=== PATIENT | male | born 1975 ===

== ENCOUNTER 2017-01-24 17:44 | Emergency (ER) | payer OTHER ==
[2017-01-24 17:44] VITALS: BMI 626.7
[2017-01-24 17:50] VITALS: BP 151/91; PULSE 81; RESP 16; TEMP 98.5; O2SAT 100
--- NOTE | 2017-01-24 18:09 | ED PDOC ---
Lower Extremity Pain/Injury Time Seen by Provider: 01/24/17 18:07 Chief Complaint (Nursing): Wound Check Chief Complaint (Provider): HAND INJURY History Per: Patient (41 Y/O MALE HERE WITH WART NOTED ON RIGHT THUMB WITH ACCIDENTAL INJURY TODAY WHILE MOPPING. PATIENT STATES WART PRESSED AGAINT MOP AND NOW NOTES MILD ABRASION ALONG BASE OF WART. REQUESTS REMOVAL.) Past Medical History Reviewed: Historical Data, Nursing Documentation, Vital Signs Vital Signs: Last Vital Signs Temp 98.5 F 01/24/17 17:48 Pulse 81 01/24/17 17:48 Resp 16 01/24/17 17:48 BP 151/91 H 01/24/17 17:48 Pulse Ox 100 01/24/17 17:48 - Medical History PMH: Diabetes, HTN, Hypercholesterolemia, Hyperlipidemia Denies: Atrial Fibrillation, CAD, Chronic Kidney Disease - Surgical History Surgical History: Cholecystectomy - Family History Family History: States: Unknown Family Hx - Immunization History Hx Tetanus Toxoid Vaccination: Yes (2013) Hx Influenza Vaccination: Yes (2013) Hx Pneumococcal Vaccination: Yes (2013) - Home Medications Home Medications: Ambulatory Orders Medication Instructions Recorded Insulin Detemir [Levemir] 64 unit SC HS 10/14/14 Ammonium Lactate 12% [Lac-Hydrin 1 appl TOP BID 05/16/16 12% Lotion (225 g)] Amoxicillin/Clavulanate [Augmentin 1 tab PO BID 05/16/16 875 MG-125 MG Tab] Amoxicillin/Clavulanate [Augmentin 1 tab PO BID #14 tab 05/16/16 875 MG-125 MG] Clotrimazole 1% Cream [Lotrimin 1%] 1 appl TOP BID 05/16/16 Gabapentin [Neurontin] 300 mg PO BID 05/16/16 Ibuprofen [Motrin Tab] 1 tab PO Q6 PRN #15 tab 05/16/16 Insulin Lispro [humALOG] 35 unit SC AC 05/16/16 Losartan [Cozaar] 100 mg PO HS 05/16/16 [id number]-3-[id number] Ethyl Esters 1 GM 2 gm PO BID 05/16/16 [Lovaza] Simvastatin [Zocor] 40 mg PO HS 05/16/16 Cephalexin [cephalexin] 500 mg PO Q6 #12 cap 07/14/16 Bacitracin OINT 0.5 gm TOP BID #1 tube 01/24/17 Naproxen [Naprosyn Tab] 1 tab PO Q8 PRN #21 tab 01/24/17 - Allergies Allergies/Adverse Reactions: Allergies Allergy/AdvReac Type Severity Reaction Status Date / Time vancomycin Allergy SWELLING Verified 01/24/17 17:48 Review of Systems ROS Statement: Except As Marked, All Systems Reviewed And Found Negative Skin: Positive for: Other (WART) Physical Exam - Reviewed Nursing Documentation Reviewed: Yes Vital Signs Reviewed: Yes - Physical Exam Appears: Positive for: Well, Non-toxic, No Acute Distress Head Exam: Positive for: ATRAUMATIC, NORMAL INSPECTION, NORMOCEPHALIC Skin: Positive for: Warm. Negative for: Normal Color (1.25 CM WART NOTED RIGHT VOLAR SURFACE OF THUMB. SUPERFICIAL LACERATION NOTED BY BASE OF WART OF RIGHT THUMB.) Eye Exam: Positive for: EOMI, Normal appearance, PERRL ENT: Positive for: Normal ENT Inspection Neck: Positive for: Normal, Painless ROM Cardiovascular/Chest: Positive for: Regular Rate, Rhythm Respiratory: Positive for: CNT, Normal Breath Sounds Gastrointestinal/Abdominal: Positive for: Normal Exam, Bowel Sounds, Soft Back: Positive for: Normal Inspection Extremity: Positive for: Normal ROM Neurologic/Psych: Positive for: Alert, Oriented - ECG O2 Sat by Pulse Oximetry: 100 Disposition - Clinical Impression Clinical Impression: Wart - Patient ED Disposition Is Patient to be Admitted: No - Disposition Referrals: Duy Jacob MD [Staff Provider] - Disposition: Routine/Home Disposition Time: 18:10 Condition: FAIR Additional Instructions: F/U WITH PMD OR DERMATOLOGY IN 2 DAYS FOR WOUND EVALUATION Prescriptions: Bacitracin OINT 0.5 gm TOP BID #1 tube Naproxen [Naprosyn Tab] 1 tab PO Q8 PRN #21 tab PRN Reason: Pain, Moderate (4-7) Instructions: Common Wart (ED), Abrasion (ED) Forms: HUM ED School/Work Excuse
[2017-01-24] MEDS ORDERED: TDAP Vaccine 0.5 mL Syr IM ONE (18:12)
[2017-01-24] MEDS ORDERED: Naproxen 500 MG TAB PO STA (18:12)
[2017-01-24] MEDS ORDERED: Naproxen 500 MG TAB PO ONE (18:27)
== END 2017-01-24 18:46 | disposition home or self-care (01) ==
LOC: H.ER 17:44
DX: B07.8 Other viral warts (principal); E11.9 Type 2 diabetes mellitus without complications; E78.00 Pure hypercholesterolemia, unspecified; I10 Essential (primary) hypertension; Z79.4 Long term (current) use of insulin

== ENCOUNTER 2017-03-16 23:22 | Inpatient (IN) | payer OTHER ==
[2017-03-16 23:22] VITALS: BMI 39.4
--- NOTE | 2017-03-17 | ED PDOC ---
Lower Extremity Pain/Injury Time Seen by Provider: 03/16/17 23:35 Chief Complaint (Nursing): Lower Extremity Problem/Injury Chief Complaint (Provider): foot pain History Per: Patient History/Exam Limitations: no limitations Onset/Duration Of Symptoms: Days Additional History Per: Patient Additional Complaint(s): 41 y/o male history of diabetes presents with bilateral foot pain x 2 days. Patient had debridement of ulceration and resection of bone with complex repair of skin structures on the right foot, as well as incision and drainage, ulcer debridement with resection of bone on the left foot 03/08/[address] Hernandez. Patient followed up with Dr. Hernandez at wound care clinic this morning due to persistent pain and was advised to come to ED for admission for cellulitis after serosanguanous discharge was drainage from right surgical site. Patient notes pain worse on surgical site of right foot. Associated chills. Denies nausea/vomiting, chest pain, shortness of breath, palpitations, leg swelling. Past Medical History Reviewed: Historical Data, Nursing Documentation, Vital Signs Vital Signs: Last Vital Signs Temp 99.8 F H 03/16/17 23:28 Pulse 104 H 03/16/17 23:28 Resp 18 03/16/17 23:28 BP 124/71 03/16/17 23:28 Pulse Ox 98 03/16/17 23:28 - Medical History PMH: Diabetes, Gall Bladder Disease, HTN, Hypercholesterolemia, Hyperlipidemia Denies: Atrial Fibrillation, CAD, Chronic Kidney Disease - Surgical History Surgical History: Cholecystectomy - Family History Family History: States: Unknown Family Hx - Immunization History Hx Tetanus Toxoid Vaccination: Yes (2013) Hx Influenza Vaccination: Yes (2013) Hx Pneumococcal Vaccination: Yes (2013) - Home Medications Home Medications: Ambulatory Orders Medication Instructions Recorded Insulin Detemir [Levemir] 64 unit SC HS 10/14/14 Ammonium Lactate 12% [Lac-Hydrin 1 appl TOP BID 05/16/16 12% Lotion (225 g)] Clotrimazole 1% Cream [Lotrimin 1%] 1 appl TOP BID 05/16/16 Gabapentin [Neurontin] 300 mg PO BID 05/16/16 Insulin Lispro [humALOG] 35 unit SC TID 05/16/16 Losartan [Cozaar] 100 mg PO HS 05/16/16 [id number]-[id number] Ethyl Esters 1 GM 2 gm PO BID 05/16/16 [Lovaza] Simvastatin [Zocor] 40 mg PO HS 05/16/16 - Allergies Allergies/Adverse Reactions: Allergies Allergy/AdvReac Type Severity Reaction Status Date / Time vancomycin Allergy SWELLING Verified 03/16/17 23:28 Review of Systems ROS Statement: Except As Marked, All Systems Reviewed And Found Negative Musculoskeletal: Positive for: Foot Pain Physical Exam - Reviewed Nursing Documentation Reviewed: Yes Vital Signs Reviewed: Yes - Physical Exam Appears: Positive for: Well, Non-toxic, Uncomfortable Head Exam: Positive for: ATRAUMATIC, NORMAL INSPECTION, NORMOCEPHALIC Skin: Positive for: Normal Color Eye Exam: Positive for: Normal appearance ENT: Positive for: Normal ENT Inspection Cardiovascular/Chest: Positive for: Regular Rate, Rhythm Respiratory: Positive for: Normal Breath Sounds Gastrointestinal/Abdominal: Positive for: Normal Exam Back: Positive for: Normal Inspection Extremity: Positive for: Other (2nd and 3rd digit amputation left foot; suture site plantar left foot extending dorsally. No drainage, tenderness. Right foot 2nd digit amputation; sutures noted plantar aspect extending dorsally; moderate localized erythema streaking up right leg. Tender to touch. No active drainage. ). Negative for: Calf Tenderness Neurologic/Psych: Positive for: Alert, Oriented - Laboratory Results Result Diagrams: 03/17/17 00:30 03/17/17 00:30 - ECG ECG: Positive for: Viewed By Me (reviewed by ED attending) ECG Rhythm: Positive for: Sinus Rhythm O2 Sat by Pulse Oximetry: 98 Pulse Ox Interpretation: Normal - Radiology X-Ray: Viewed By Me X-Ray Interpretation: No Acute Disease - Other Rad xray bilateral feet X-Ray: Viewed By La X-Ray Interpretation: no acute findings - Progress ED Course And Treament: labs, xrays, ekg, IV dilaudid Patient evaluated by podiatry resident on-call. Case discussed with Dr. Chaney, medical service on-call, for admission Disposition - Clinical Impression Clinical Impression: Foot infection, Cellulitis - Patient ED Disposition Is Patient to be Admitted: Yes - Disposition Disposition Time: 01:35 Condition: FAIR - Pt Status Changed To: Hospital Disposition Of: Inpatient - Admit Certification Admit to Inpatient:: After my assessment, the patient will require hospitalization for at least two midnights. This is because of the severity of symptoms shown, intensity of services needed, and/or the medical risk in this patient being treated as an outpatient. - POA Present On Arrival: Poor Glycemic Control, Surgical Site Infection
[2017-03-17] MEDS ORDERED: Piperacillin/Tazobact 3.375 GM in Sodium Chloride 0.9% 100 ML IV ONE (00:47)
[2017-03-17 00:48] LABS: BASO # 0.1 K/uL (0.0-0.2); BASO % 0.7 % (0.0-2.0); EOS # 0.1 K/uL (0.0-0.7); EOS % 0.7 % (0.0-4.0); HEMOGLOBIN 9.8 g/dL (12.0-18.0); LYMPH # 1.8 K/uL (1.0-4.3); LYMPH % 12.8 % (20.0-40.0); MEAN CELL VOLUME 79.9 fl (80.0-94.0); MEAN CORPUSCULAR HEMOGLOBIN 26.6 pg (27.0-31.0); MEAN CORPUSCULAR HGB CONC 33.3 g/dL (33.0-37.0); MEAN PLATELET VOLUME 6.9 fl (7.2-11.7); MONO % 7.2 % (0.0-10.0); NEUT # 11.1 K/uL (1.8-7.0); NEUT % 78.6 % (50.0-75.0); RBC 3.68 Mil/uL (4.40-5.90); RED CELL DISTRIBUTION WIDTH 14.2 % (11.5-14.5); WHITE BLOOD COUNT 14.1 K/uL (4.8-10.8)
[2017-03-17 01:02] LABS: ALB/GLOB RATIO 0.8 (1.0-2.1); ALBUMIN 3.9 g/dL (3.5-5.0); ALT/SGPT 34 U/L (21-72); AST/SGOT 26 U/L (17-59); BLOOD UREA NITROGEN 23 mg/dl (9-20); CALCIUM 9.1 mg/dL (8.4-10.2); GFR AFRICAN-AMERICAN > 60; GFR NON-AFRICAN AMERICAN > 60
[2017-03-17] MEDS ORDERED: Sodium Chloride 0.9% 1,000 ML IV STA (01:33)
[2017-03-17] MEDS ORDERED: HYDROmorphone 0.5 mg/0.5 ml ISec ONE (01:40)
--- NOTE | 2017-03-17 02:26 | CP.PCM.CON ---
History of Present Illness - History of Present Illness History of Present Illness: 41 year old male with PMHx DM, HTN, HLD seen at bedside in the ED complaining of pain at surgery sites, right foot nonhealing ulceration and left foot infected ulcerations. Patient states the had the surgery for wound debridement last week . Since the surgery, patient states he has developed great pain to his surgical sites. Patient states he went to the wound care clinic and had 5cc of sanguinous drainage relieved from his right surgical site. Patient still feels hot and great pressure from his right surgical site. Patient was sent to the ED after wound care clinic. Patient denies N/V/F/D/C/SOB. No other pedal complaints at this time. PMH: DM, HTN, HLD, hypercholesterolemia PSH: cholecystectomy Meds: see med list All: vancomycin FH: unknown SH: vapes Review of Systems - Review of Systems All systems: reviewed and no additional remarkable complaints except (as per HPI ) Past Patient History - Infectious Disease Hx of Infectious Diseases: None - Tetanus Immunizations Tetanus Immunization: Unknown - Past Medical History & Family History Past Medical History?: Yes - Past Social History Smoking Status: Former Smoker - CARDIAC Hx Atrial Fibrillation: No Hx Hypercholesterolemia: Yes Hx Hypertension: Yes - HEENT Hx HEENT Problems: No - RENAL Hx Chronic Kidney Disease: No - INTEGUMENTARY Hx Dermatological Problems: Yes (ULCERS BOTH FEET) Hx Cellulitis: Yes (BOTH FEET) - GASTROINTESTINAL Hx Gall Bladder Disease: Yes - SURGICAL HISTORY Hx Amputation: Yes (3 toes left foot) Hx Cholecystectomy: Yes Hx Musculoskeletal Surgery: Yes - ANESTHESIA Hx Anesthesia: Yes Hx Anesthesia Reactions: No Hx Malignant Hyperthermia: No Meds Allergies/Adverse Reactions: Allergies Allergy/AdvReac Type Severity Reaction Status Date / Time vancomycin Allergy SWELLING Verified 03/16/17 23:28 - Medications Medications: Current Medications Sodium Chloride (Sodium Chloride 0.9%) 1,000 mls @ 1,000 mls/hr IV .Q1H STA Stop: 03/17/17 02:32 Physical Exam - Constitutional Appears: Well, Non-toxic, No Acute Distress - Extremities Exam Additional comments: Vasc: DP & PT pulses 2/4, Moderate ankle edema, CFT < 3 sec to all digits, increase in warmth noted to dorsum of right foot Neuro: patient insensate however able to feel pain this visit Derm: Surgical incisions to previous 2nd digit amps b/p appears well coapted with no signs of wound dehiscence noted. Erythema noted to the dorsum of forefoot, L>R. Ortho: Multiple digital amputations noted. Pain on palpation noted to dorsum of forefoot in area of erythema, L>R. - Neurological Exam Neurological exam: Alert, Oriented x3 - Psychiatric Exam Psychiatric exam: Normal Affect, Normal Mood Results - Vital Signs Recent Vital Signs: Last Vital Signs Temp 99.3 F 03/17/17 01:56 Pulse 90 03/17/17 01:56 Resp 14 03/17/17 01:56 BP 138/71 03/17/17 01:56 Pulse Ox 98 03/17/17 01:56 - Labs Result Diagrams: 03/17/17 00:30 03/17/17 00:30 Assessment & Plan - Assessment and Plan (Free Text) Assessment: Patient seen and evaluated at bedside Discussed with attending, Dr. Lan Charts, labs, vitals reviewed = afebrile, WBC leukocytosis @ 14.1 Patient to be admitted today for foot wounds b/l F/U foot XR Recommend IV Zosyn Podiatry will continue to follow while in house - Date & Time Date: 03/17/17 Time: 01:00
[2017-03-17] MEDS ORDERED: Piperacillin/Tazobact 3.375 gm Inj IVPB ONE (02:30)
[2017-03-17] MEDS: Sodium Chloride 0.45% 1,000 ML IV SCH ×2 (06:51→16:33)
--- NOTE | 2017-03-17 08:25 | RAD ---
HISTORY: admit COMPARISON: No prior. FINDINGS: LUNGS: No active pulmonary disease. PLEURA: No significant pleural effusion identified, no pneumothorax apparent. CARDIOVASCULAR: Normal. OSSEOUS STRUCTURES: No significant abnormalities. VISUALIZED UPPER ABDOMEN: Normal. OTHER FINDINGS: None. IMPRESSION: No active disease.
--- NOTE | 2017-03-17 08:30 | RAD ---
HISTORY: foot pain COMPARISON: No prior FINDINGS: BONES: Re-demonstration of osteotomies of left 2nd and 3rd digits. Re-demonstration of postsurgical changes with resection of the 2nd digit and partial resection of the 1st metatarsal. JOINTS: Re-demonstration of degenerative changes involving metatarsal-phalangeal joint of the 1st digit as well as deformity of the 1st proximal phalanx.Additional deformity of the 3rd toe and 4th metatarsal-phalangeal junction. SOFT TISSUE: Air noted in the soft tissues of the distal 2nd digit cannot exclude underlying abscess. OTHER FINDINGS: None . IMPRESSION: As above.
[2017-03-17] MEDS ORDERED: Insulin Lispro (humaLOG) 100 Units/ml Inj SC SCH (09:00)
[2017-03-17] MEDS: Piperacillin/Tazobact 3.375 GM in Sodium Chloride 0.9% 100 ML IVPB SCH ×2 (09:29→16:33)
[2017-03-17] MEDS: Omega-3-Acid Ethyl Esters 1 GM Cap PO SCH ×2 (09:30→17:34)
[2017-03-17] MEDS: Insulin Lispro (humaLOG) 100 Units/ml Inj SC SCH ×3 (09:30→17:34)
--- NOTE | 2017-03-17 10:22 | CP.PCM.CON ---
History of Present Illness - History of Present Illness History of Present Illness: Infectius Disease Consult Note- HPI- Patient is a 41 year ld male with h/o DM II, HTN, who was admitted with pain and edema and redness around his b/l ft surgical sites. pt. was sent to ed after being seen at the wound center. Pt. explains had surgery a week ago for b/l feet wound debridement for nonhealing foot wound ulcers and since the surgery pt. has developed edema and redness and bloody discharge from the right foot wound site and pain. Pt. currently denies any fever or chills but states has alot of pain around of the second right toe surgical site and the left foot surgical site. PMH: DM, HTN, HLD, hypercholesterolemia PSH: cholecystectomy Meds: see med list All: vancomycin FH: unknown Review of Systems - Review of Systems Review of Systems: ROS- denies any fever or chills, denies any cough, denies any sob, denies any chest pain, denies any abd. pain, denies any n.v, denies any dysurea, denies any diarrhea pain and swelling and redness in b/l feet /toe surgical sites with bloody discharge denies any injury to the area Past Patient History - Infectious Disease Hx of Infectious Diseases: None - Tetanus Immunizations Tetanus Immunization: Unknown - Past Medical History & Family History Past Medical History?: Yes - Past Social History [facility] - CARDIAC Hx Cardiac Disorders: Yes Hx Hypertension: Yes - PULMONARY Hx Respiratory Disorders: No - NEUROLOGICAL Hx Neurological Disorder: No - HEENT Hx HEENT Problems: No - RENAL Hx Chronic Kidney Disease: No - ENDOCRINE/METABOLIC Hx Endocrine Disorders: Yes Hx Diabetes Mellitus Type 2: Yes - HEMATOLOGICAL/ONCOLOGICAL Hx Blood Disorders: No - INTEGUMENTARY Hx Dermatological Problems: Yes (ULCERS BOTH FEET) Hx Cellulitis: Yes (BOTH FEET) - MUSCULOSKELETAL/RHEUMATOLOGICAL Hx Falls: No - GASTROINTESTINAL Hx Gall Bladder Disease: Yes - GENITOURINARY/GYNECOLOGICAL Hx Genitourinary Disorders: No - PSYCHIATRIC Hx Substance Use: No - SURGICAL HISTORY Hx Cholecystectomy: Yes Other/Comment: bilateral foot surgeries (amputation of toes) - ANESTHESIA Hx Anesthesia: Yes Hx Anesthesia Reactions: No Hx Malignant Hyperthermia: No Meds Allergies/Adverse Reactions: Allergies Allergy/AdvReac Type Severity Reaction Status Date / Time vancomycin Allergy SWELLING Verified 03/16/17 23:28 - Medications Medications: Current Medications Acetaminophen (Tylenol 325mg Tab) 650 mg PO Q6 PRN PRN Reason: Pain, moderate (4-7) Atorvastatin Calcium (Lipitor) 20 mg PO HS [facility] Clotrimazole (Lotrimin 1% Cream) 1 applic TOP BID [facility] Last Admin: 03/17/17 09:31 Dose: 1 appful Enoxaparin Sodium (Lovenox) 30 mg SC DAILY [facility] PRN Reason: Protocol Gabapentin (Neurontin) 300 mg PO BID [facility] Last Admin: 03/17/17 09:31 Dose: 300 mg Hydromorphone HCl (Dilaudid) 1 mg IVP Q4 PRN PRN Reason: Pain, severe (8-10) Last Admin: 03/17/17 09:35 Dose: 1 mg Sodium Chloride (Sodium Chloride 0.45%) 1,000 mls @ 100 mls/hr IV .Q10H [facility] Stop: 03/18/17 06:26 Last Admin: 03/17/17 06:51 Dose: 100 mls/hr Piperacillin Sod/Tazobactam (Sod 3.375 gm/ Sodium Chloride) 100 mls @ 100 mls/ hr IVPB Q8 [facility] Last Admin: 03/17/17 09:29 Dose: 100 mls/hr Insulin Detemir (Levemir) 64 units SC HS [facility] Insulin Human Lispro (Humalog) 0 units SC TID [facility] PRN Reason: Protocol Last Admin: 03/17/17 09:30 Dose: 4 unit Lactic Acid (Lac-Hydrin 12% Lotion (225 G)) 1 applic TOP BID [facility] Last Admin: 03/17/17 09:30 Dose: 1 appl Losartan Potassium (Cozaar) 100 mg PO [facility] [id number] Ethyl Esters (Lovaza) 2 gm PO BID [facility] Last Admin: 03/17/17 09:30 Dose: 2 gm Physical Exam - Constitutional Appears: Non-toxic, No Acute Distress - Head Exam Head Exam: ATRAUMATIC - Eye Exam Eye Exam: EOMI - ENT Exam ENT Exam: Normal Oropharynx - Neck Exam Neck exam: Positive for: Full Rom - Respiratory Exam Respiratory Exam: Clear to Auscultation Bilateral, NORMAL BREATHING PATTERN - Cardiovascular Exam Cardiovascular Exam: RRR, +S1, +S2 - GI/Abdominal Exam GI & Abdominal Exam: Normal Bowel Sounds, Soft Additional comments: NT, ND - Extremities Exam Additional comments: right foot with second toe amputation /debridement site with sutures in place , yellow discharge noted at the site with extensive edema and erythema extending to the ankle region left foot with second and third toe amp/debridement site with sutures in place, no active discharge, no malodor, but there is edema and erythema but less than the right toe region - Neurological Exam Neurological exam: Alert, Oriented x3 Results - Vital Signs Recent Vital Signs: Last Vital Signs Temp 98.3 F 03/17/17 08:54 Pulse 61 03/17/17 08:54 Resp 18 03/17/17 08:54 BP 128/64 03/17/17 08:54 Pulse Ox 98 03/17/17 08:54 - Labs Result Diagrams: 03/17/17 00:30 03/17/17 00:30 Labs: Laboratory Results - last 24 hr 03/17/17 06:48 POC Glucose (mg/dL) 246 H Laboratory Results - last 72 hr 03/17/17 03/17/17 03/17/17 00:30 00:30 00:30 WBC 14.1 H D RBC 3.68 L Hgb 9.8 L Hct 29.4 L MCV 79.9 L D MCH 26.6 L MCHC 33.3 RDW 14.2 Plt Count 333 MPV 6.9 L Neut % (Auto) 78.6 H Lymph % (Auto) 12.8 L [place] % (Auto) 7.2 Eos % (Auto) 0.7 Baso % (Auto) 0.7 Neut # 11.1 H Lymph # 1.8 [place] # 1.0 H Eos # 0.1 Baso # 0.1 PT INR Sodium 134 Potassium 4.2 Chloride 100 Carbon Dioxide 24 Anion Gap 15 BUN 23 H Creatinine 1.2 Est GFR ( Amer) > 60 Est GFR (Non-Af Amer) > 60 POC Glucose (mg/dL) Random Glucose 190 H Lactic Acid 1.0 Calcium 9.1 Total Bilirubin 1.3 AST 26 ALT 34 Alkaline Phosphatase 102 Total Protein 8.7 H Albumin 3.9 Globulin 4.7 H Albumin/Globulin Ratio 0.8 L 03/17/17 03/17/17 03/17/17 00:42 06:48 10:55 WBC RBC Hgb Hct MCV MCH MCHC RDW Plt Count MPV Neut % (Auto) Lymph % (Auto) [place] % (Auto) Eos % (Auto) Baso % (Auto) Neut # Lymph # [place] # Eos # Baso # PT INR Sodium Potassium Chloride Carbon Dioxide Anion Gap BUN Creatinine Est GFR ( Amer) Est GFR (Non-Af Amer) POC Glucose (mg/dL) 202 H 246 H 356 H Random Glucose Lactic Acid Calcium Total Bilirubin AST ALT Alkaline Phosphatase Total Protein Albumin Globulin Albumin/Globulin Ratio 03/17/17 03/17/17 12:15 17:23 WBC RBC Hgb Hct MCV MCH MCHC RDW Plt Count MPV Neut % (Auto) Lymph % (Auto) [place] % (Auto) Eos % (Auto) Baso % (Auto) Neut # Lymph # [place] # Eos # Baso # PT 15.2 H INR 1.3 H Sodium Potassium Chloride Carbon Dioxide Anion Gap BUN Creatinine Est GFR ( Amer) Est GFR (Non-Af Amer) POC Glucose (mg/dL) 321 H Random Glucose Lactic Acid Calcium Total Bilirubin AST ALT Alkaline Phosphatase Total Protein Albumin Globulin Albumin/Globulin Ratio Microbiology 05/16/16 19:23 Foot - Left Gram Stain - Final 05/16/16 19:23 Foot - Left Wound Culture - Final Proteus Penneri Staphylococcus Aureus Corynebacterium Species 03/08/17 Unknown Foot - Left Gram Stain - Final 03/08/17 Unknown Foot - Left Wound Culture - Final Proteus Mirabilis Enterobacter Aerogenes 11/10/16 15:54 Foot - Left Gram Stain - Final 11/10/16 15:54 Foot - Left Wound Culture - Final Proteus Mirabilis Escherichia Coli Enterococcus Faecalis 09/22/16 16:19 Foot - Left Gram Stain - Final 09/22/16 16:19 Foot - Left Wound Culture - Final Staphylococcus Aureus Accession No. : [id number] Patient Name / ID : LILA LEVIN / [id number] Exam Date : 03/17/2017 01:05:19 ( Approved ) Study Comment : Sex / Age : M / 41Y Creator : Jarod Glass MD Dictator : Jarod Glass MD Truck Driver Supervisor : Curtain Cleaner : Jarod Glass MD Approver2 : Report Date : 03/17/2017 08:29:05 My Comment : HISTORY: foot pain COMPARISON: No prior FINDINGS: BONES: Re-demonstration of osteotomies of left 2nd and 3rd digits. Re-demonstration of postsurgical changes with resection of the 2nd digit and partial resection of the 1st metatarsal. JOINTS: Re-demonstration of degenerative changes involving metatarsal-phalangeal joint of the 1st digit as well as deformity of the 1st proximal phalanx.Additional deformity of the 3rd toe and 4th metatarsal-phalangeal junction. SOFT TISSUE: Air noted in the soft tissues of the distal 2nd digit cannot exclude underlying abscess. OTHER FINDINGS: None . IMPRESSION: As above. Assessment & Plan (1) Cellulitis Status: Acute (2) Abscess and cellulitis Status: Acute (3) Foot infection Status: Acute - Assessment and Plan (Free Text) Assessment: A/P- 41 year old amle with DM II, HTN admitted with b/l foot ccellulitis around the b/l toe surgical sites. right foot much more edematous and erythematous compared to the right and underlying abscess must be ruled out. plan- check blood cx x 2. check wound cx. advise to check ESR. advise that pt. would most likely need opening of the right surgical site sutures to help relieve the pressure and help the underlying abscess get drained. in the interim advise to cover for both MRSA and broad spectrum for gram negatives. pt. has had multiorganism foot infections based on previous microbiology foot wound cx results in medical chart. pt. states he is allergic to vancomycin and hence advise to start pt. on daptomycin 4mg/kg q24 hours for mras coverage along with zosyn for broad spectrum gram neg and anaerobic coverage and the proteus and e.coli and enterbocater from previous foot wound cx are all sensitive to zosyn based on micro report. bone bx path report from earlier this month post surgery was negative for OM. length of Iv antibiotics pending clinical response may need Ct or MRI for better evaluation and r/o abscess. All above d/w patient at length and pt. verbalizes full understanding of all above. Thank you fro allowing me to take part in the care of this patient.
[2017-03-17] MEDS ORDERED: DAPTOmycin 500 mg Inj (Cubicin) IV SCH (10:30)
--- NOTE | 2017-03-17 11:23 | CP.PCM.PN ---
Subjective - Date & Time of Evaluation Date of Evaluation: 03/17/17 Time of Evaluation: 10:30 - Subjective Subjective: 41 year old male patient with PMHx DM, HTN, HLD seen at bedside for painful surgical sites b/l, 1 week s/p R debridement of nonhealing ulceration and L debridement of infected ulceration. Patient seen resting in bed comfortably, AAOx3 and NAD. Patient denies any acute events overnight other than moderate drainage from surgical sites b/l, L>R. Patient reports the pain to his surgical sites are well-controlled with pain medications. Patient denies N/V/F/D/C/SOB/ CP. No other pedal complaints at this time. Objective - Vital Signs/Intake and Output Vital Signs (last 24 hours): Temp Pulse Resp BP Pulse Ox 98.3 F 61 18 128/64 98 03/17/17 08:54 03/17/17 08:54 03/17/17 08:54 03/17/17 08:54 03/17/17 08:54 - Medications Medications: Current Medications Acetaminophen (Tylenol 325mg Tab) 650 mg PO Q6 PRN PRN Reason: Pain, moderate (4-7) Atorvastatin Calcium (Lipitor) 20 mg PO HS [facility] Clotrimazole (Lotrimin 1% Cream) 1 applic TOP BID [facility] Last Admin: 03/17/17 09:31 Dose: 1 appful Enoxaparin Sodium (Lovenox) 40 mg SC DAILY [facility] PRN Reason: Protocol Gabapentin (Neurontin) 300 mg PO BID [facility] Last Admin: 03/17/17 09:31 Dose: 300 mg Hydromorphone HCl (Dilaudid) 1 mg IVP Q4 PRN PRN Reason: Pain, severe (8-10) Last Admin: 03/17/17 09:35 Dose: 1 mg Sodium Chloride (Sodium Chloride 0.45%) 1,000 mls @ 100 mls/hr IV .Q10H [facility] Stop: 03/18/17 06:26 Last Admin: 03/17/17 06:51 Dose: 100 mls/hr Piperacillin Sod/Tazobactam (Sod 3.375 gm/ Sodium Chloride) 100 mls @ 100 mls/ hr IVPB Q8 [facility] Last Admin: 03/17/17 09:29 Dose: 100 mls/hr Daptomycin 570 mg/ Sodium (Chloride) 100 mls @ 100 mls/hr IV Q24H [facility] Stop: 03/22/17 11:16 Insulin Detemir (Levemir) 64 units SC HS [facility] Insulin Human Lispro (Humalog) 0 units SC TID [facility] PRN Reason: Protocol Last Admin: 03/17/17 09:30 Dose: 4 unit Lactic Acid (Lac-Hydrin 12% Lotion (225 G)) 1 applic TOP BID [facility] Last Admin: 03/17/17 09:30 Dose: 1 appl Losartan Potassium (Cozaar) 100 mg PO HS [facility] [id number] Ethyl Esters (Lovaza) 2 gm PO BID [facility] Last Admin: 03/17/17 09:30 Dose: 2 gm - Constitutional Appears: Well, Non-toxic, No Acute Distress - Extremities Exam Additional comments: Vasc: DP & PT pulses 3/4, Moderate ankle edema, CFT < 3 sec to all digits, increase in warmth noted to dorsum of right foot Neuro: patient insensate however able to feel pain this visit Derm: Surgical incisions to previous 2nd digit amps b/l appears well coapted with no signs of wound dehiscence noted. Erythema noted to the dorsum of forefoot, L>R. Approximately 2cc sanguinous drainage expressed from R incision. Approximately 1cc serosanguinous drainage expressed from L incision plantarly. Ortho: Multiple digital amputations noted. Pain on palpation noted to dorsum of forefoot in area of erythema, L>R. - Neurological Exam Neurological Exam: Alert, Awake, Oriented x3 - Psychiatric Exam Psychiatric exam: Normal Affect, Normal Mood Assessment and Plan - Assessment and Plan (Free Text) Assessment: 41 year old male PMHx DM, HTN, HLD, hypercholesterolemia with b/l foot cellulitis 1 week s/p debridement ulceration sub 2nd met b/l. Plan: Patient seen and evaluated at bedside. Discussed with attending, Dr. Wright. Charts, labs, vitals reviewed = afebrile, leukocytosis @ 14.1 F/U abx recs per ID Using a sterile pickup, R incision was and dorsum of R foot was milked to express any remaining hematoma. Approximately 2cc sanguinous drainage was expressed. Using a sterile pickup, L incision was and dorsum and plantar L foot milked to express any drainage. Approximately 1cc serosanguinous drainage expressed. b/l foot XR: - Air noted in the soft tissues of this distal 2nd digit cannot exclude underlying abscess Continue with pain mgmt per medicine = Tylenol, Dilaudid Podiatry will continue to follow patient while in house
[2017-03-17] MEDS: Enoxaparin 40 mg Syringe SC SCH (12:58)
[2017-03-17 13:08] LABS: INR 1.3 (0.9-1.2); PROTHROMBIN TIME 15.2 Seconds (9.8-13.1)
--- NOTE | 2017-03-17 20:15 | CARD ---
APPROVED REPORT EKG Measurement Heart [id number] <Conclusion> Normal sinus rhythm Normal ECG
[2017-03-17] MEDS ORDERED: INSULIN DETEMIR 64 UNIT SC SCH (22:00)
--- NOTE | 2017-03-17 23:04 | CP.PCM.HP ---
Past Patient History - Infectious Disease Hx of Infectious Diseases: None - Tetanus Immunizations Tetanus Immunization: Unknown - Past Medical History & Family History Past Medical History?: Yes - Past Social History Smoking Status: ecigarette - CARDIAC Hx Cardiac Disorders: Yes Hx Hypertension: Yes - PULMONARY Hx Respiratory Disorders: No - NEUROLOGICAL Hx Neurological Disorder: No - HEENT Hx HEENT Problems: No - RENAL Hx Chronic Kidney Disease: No - ENDOCRINE/METABOLIC Hx Endocrine Disorders: Yes Hx Diabetes Mellitus Type 2: Yes - HEMATOLOGICAL/ONCOLOGICAL Hx Blood Disorders: No - INTEGUMENTARY Hx Dermatological Problems: Yes (ULCERS BOTH FEET) Hx Cellulitis: Yes (BOTH FEET) - MUSCULOSKELETAL/RHEUMATOLOGICAL Hx Falls: No - GASTROINTESTINAL Hx Gall Bladder Disease: Yes - GENITOURINARY/GYNECOLOGICAL Hx Genitourinary Disorders: No - PSYCHIATRIC Hx Substance Use: No - SURGICAL HISTORY Hx Cholecystectomy: Yes Other/Comment: bilateral foot surgeries (amputation of toes) - ANESTHESIA Hx Anesthesia: Yes Hx Anesthesia Reactions: No Hx Malignant Hyperthermia: No Meds Allergies/Adverse Reactions: Allergies Allergy/AdvReac Type Severity Reaction Status Date / Time vancomycin Allergy SWELLING Verified 03/16/17 23:28 Results - Vital Signs Recent Vital Signs: Last Vital Signs Temp 98.3 F 03/17/17 16:53 Pulse 67 03/17/17 21:41 Resp 20 03/17/17 16:53 BP 169/75 H 03/17/17 21:41 Pulse Ox 98 03/17/17 16:53 - Labs Result Diagrams: 03/17/17 00:30 03/17/17 00:30 Labs: Laboratory Results - last 24 hr 03/17/17 03/17/17 03/17/17 06:48 10:55 12:15 ESR PT 15.2 H INR 1.3 H POC Glucose (mg/dL) 246 H 356 H 03/17/17 03/17/17 17:23 20:20 ESR > 120 H PT INR POC Glucose (mg/dL) 321 H
[2017-03-17] MEDS: Insulin Detemir 100 Units/ml Inj SC SCH (23:46)
[2017-03-18] MEDS: Piperacillin/Tazobact 3.375 GM in Sodium Chloride 0.9% 100 ML IVPB SCH ×3 (01:13→16:31)
[2017-03-18] MEDS: Sodium Chloride 0.45% 1,000 ML IV SCH (02:15)
[2017-03-18 08:08] LABS: BASO # 0.1 K/uL (0.0-0.2); BASO % 0.7 % (0.0-2.0); EOS # 0.4 K/uL (0.0-0.7); HEMOGLOBIN 9.5 g/dL (12.0-18.0); LYMPH # 1.4 K/uL (1.0-4.3); LYMPH % 19.4 % (20.0-40.0); MEAN CELL VOLUME 79.9 fl (80.0-94.0); MEAN CORPUSCULAR HEMOGLOBIN 27.1 pg (27.0-31.0); MEAN PLATELET VOLUME 6.9 fl (7.2-11.7); MONO # 0.6 K/uL (0.0-0.8); MONO % 8.9 % (0.0-10.0); NEUT # 4.6 K/uL (1.8-7.0); NRBC % 0.1 % (0.0-0.0); RBC 3.51 Mil/uL (4.40-5.90); RED CELL DISTRIBUTION WIDTH 14.1 % (11.5-14.5)
[2017-03-18] MEDS: Insulin Lispro (humaLOG) 100 Units/ml Inj SC SCH ×3 (09:10→17:40)
[2017-03-18] MEDS: Enoxaparin 40 mg Syringe SC SCH (09:11)
[2017-03-18] MEDS: Omega-3-Acid Ethyl Esters 1 GM Cap PO SCH ×2 (09:12→16:27)
--- NOTE | 2017-03-18 10:37 | CP.PCM.PN ---
Subjective - Date & Time of Evaluation Date of Evaluation: 03/18/17 Time of Evaluation: 10:37 - Subjective Subjective: 41 year old male patient with PMHx DM, HTN, HLD seen at bedside for painful surgical sites b/l, 1 week s/p R debridement of nonhealing ulceration and L debridement of infected ulceration. Patient seen resting in bed comfortably, AAOx3 and NAD. Patient admits continued moderate drainage from surgical sites b/ l, L>R. Strikethrough is present on dressings. Patient states he woke up in the middle of the night because he left like his R foot was on fire, with the burning sensation traveling up his leg. Patient reports the pain to his surgical sites are well-controlled with pain medications. Patient denies N/V/F/D /C/SOB/CP. No other pedal complaints at this time. Objective - Vital Signs/Intake and Output Vital Signs (last 24 hours): Temp Pulse Resp BP Pulse Ox 97.9 F 60 20 129/79 97 03/18/17 08:10 03/18/17 08:10 03/18/17 08:10 03/18/17 08:10 03/18/17 08:10 - Medications Medications: Current Medications Acetaminophen (Tylenol 325mg Tab) 650 mg PO Q6 PRN PRN Reason: Pain, moderate (4-7) Atorvastatin Calcium (Lipitor) 20 mg PO HS [facility] Last Admin: 03/17/17 21:40 Dose: 20 mg Clotrimazole (Lotrimin 1% Cream) 1 applic TOP BID [facility] Last Admin: 03/18/17 09:13 Dose: 1 applic Enoxaparin Sodium (Lovenox) 40 mg SC DAILY [facility] PRN Reason: Protocol Last Admin: 03/18/17 09:11 Dose: 40 mg Gabapentin (Neurontin) 300 mg PO BID [facility] Last Admin: 03/18/17 09:12 Dose: 300 mg Hydromorphone HCl (Dilaudid) 1 mg IVP Q4 PRN PRN Reason: Pain, severe (8-10) Last Admin: 03/18/17 06:52 Dose: 1 mg Piperacillin Sod/Tazobactam (Sod 3.375 gm/ Sodium Chloride) 100 mls @ 100 mls/ hr IVPB Q8 [facility] Last Admin: 03/18/17 09:14 Dose: 100 mls/hr Daptomycin 570 mg/ Sodium (Chloride) 100 mls @ 100 mls/hr IV Q24H [facility] Stop: 03/22/17 11:16 Last Admin: 03/17/17 12:57 Dose: 100 mls/hr Insulin Detemir (Levemir) 64 units SC [facility] Last Admin: 03/17/17 23:46 Dose: 64 units Insulin Human Lispro (Humalog) 0 units SC TID [facility] PRN Reason: Protocol Last Admin: 03/18/17 09:10 Dose: 4 unit Lactic Acid (Lac-Hydrin 12% Lotion (225 G)) 1 applic TOP BID [facility] Last Admin: 03/18/17 09:12 Dose: 1 appl Losartan Potassium (Cozaar) 100 mg PO [facility] Last Admin: 03/17/17 21:41 Dose: 100 mg Uqemr-[id number] Ethyl Esters (Lovaza) 2 gm PO BID [facility] Last Admin: 03/18/17 09:12 Dose: 2 gm - Labs Labs: 03/18/17 05:30 PT 15.2 Seconds (9.8-13.1) H 03/17/17 12:15 INR 1.3 (0.9-1.2) H 03/17/17 12:15 - Constitutional Appears: Well, Non-toxic, No Acute Distress - Extremities Exam Additional comments: Vasc: DP & PT pulses 3/4, Moderate ankle edema, CFT < 3 sec to all digits, increase in warmth noted to dorsum of right foot Neuro: patient insensate however able to feel pain this visit Derm: Surgical incisions to previous 2nd digit amps b/l appears well coapted. Erythema noted to the dorsum of forefoot. Approximately 1cc sanguinous drainage expressed from R incision. <1cc serosanguinous drainage expressed from L incision plantarly. Ortho: Multiple digital amputations noted. Pain on palpation noted to dorsum of forefoot in area of erythema, L>R. - Neurological Exam Neurological Exam: Alert, Awake, Oriented x3 - Psychiatric Exam Psychiatric exam: Normal Affect, Normal Mood Assessment and Plan - Assessment and Plan (Free Text) Assessment: 41 year old male PMHx DM, HTN, HLD, hypercholesterolemia with b/l foot cellulitis 1 week s/p debridement ulceration sub 2nd met b/l. Plan: Patient seen and evaluated at bedside. Discussed with attending, Dr. Wright. Charts, labs, vitals reviewed = afebrile, WBC WNL @ 7.0 F/U abx recs per ID Both feet packed with 1/4 in Iodosorb and dressed with DSD. Continue with pain mgmt per medicine = Tylenol, Dilaudid Podiatry will continue to follow patient while in house
[2017-03-18] MEDS ORDERED: Iodoform 1/4inx15ft BOT EXT ONE (16:03)
[2017-03-18] MEDS: Insulin Detemir 100 Units/ml Inj SC SCH (22:12)
[2017-03-19] MEDS: Piperacillin/Tazobact 3.375 GM in Sodium Chloride 0.9% 100 ML IVPB SCH ×3 (00:18→16:34)
--- NOTE | 2017-03-19 00:55 | CP.PCM.PN ---
Subjective - Date & Time of Evaluation Date of Evaluation: 03/18/17 Time of Evaluation: 13:15 Objective - Vital Signs/Intake and Output Vital Signs (last 24 hours): Temp Pulse Resp BP Pulse Ox 97.3 F L 72 20 159/79 H 97 03/18/17 16:51 03/18/17 22:10 03/18/17 16:51 03/18/17 22:10 03/18/17 16:51 - Medications Medications: Current Medications Acetaminophen (Tylenol 325mg Tab) 650 mg PO Q6 PRN PRN Reason: Pain, moderate (4-7) Atorvastatin Calcium (Lipitor) 20 mg PO [facility] Last Admin: 03/18/17 22:10 Dose: 20 mg Clotrimazole (Lotrimin 1% Cream) 1 applic TOP BID [facility] Last Admin: 03/18/17 09:13 Dose: 1 applic Enoxaparin Sodium (Lovenox) 40 mg SC DAILY [facility] PRN Reason: Protocol Last Admin: 03/18/17 09:11 Dose: 40 mg Gabapentin (Neurontin) 300 mg PO BID [facility] Last Admin: 03/18/17 16:27 Dose: 300 mg Hydromorphone HCl (Dilaudid) 1 mg IVP Q4 PRN PRN Reason: Pain, severe (8-10) Last Admin: 03/18/17 16:23 Dose: 1 mg Piperacillin Sod/Tazobactam (Sod 3.375 gm/ Sodium Chloride) 100 mls @ 100 mls/ hr IVPB Q8 [facility] Last Admin: 03/19/17 00:18 Dose: 100 mls/hr Daptomycin 570 mg/ Sodium (Chloride) 100 mls @ 100 mls/hr IV Q24H [facility] Stop: 03/22/17 11:16 Last Admin: 03/18/17 11:48 Dose: 100 mls/hr Insulin Detemir (Levemir) 64 units SC [facility] Last Admin: 03/18/17 22:12 Dose: 64 units Insulin Human Lispro (Humalog) 0 units SC TID [facility] PRN Reason: Protocol Last Admin: 03/18/17 17:40 Dose: 4 unit Lactic Acid (Lac-Hydrin 12% Lotion (225 G)) 1 applic TOP BID [facility] Last Admin: 03/18/17 16:27 Dose: 1 appl Losartan Potassium (Cozaar) 100 mg PO [facility] Last Admin: 03/18/17 22:10 Dose: 100 mg [id number] Ethyl Esters (Lovaza) 2 gm PO BID [facility] Last Admin: 03/18/17 16:27 Dose: 2 gm - Labs Labs: 03/18/17 05:30 PT 15.2 Seconds (9.8-13.1) H 03/17/17 12:15 INR 1.3 (0.9-1.2) H 03/17/17 12:15
[2017-03-19] MEDS: Insulin Lispro (humaLOG) 100 Units/ml Inj SC SCH ×3 (08:57→17:38)
[2017-03-19] MEDS: Enoxaparin 40 mg Syringe SC SCH (09:00)
[2017-03-19] MEDS: Omega-3-Acid Ethyl Esters 1 GM Cap PO SCH ×2 (09:00→16:35)
--- NOTE | 2017-03-19 11:50 | CP.PCM.PN ---
Subjective - Date & Time of Evaluation Date of Evaluation: 03/19/17 Time of Evaluation: 11:50 - Subjective Subjective: ID note- Pt. seen and examined today. pt. in good spirit. pt. has had couple of the mid b/l feet sutures removed and packing placed by podiatry to help reduce the inflammation and evacuate the abscess. He denies any fever or chills. Objective - Vital Signs/Intake and Output Vital Signs (last 24 hours): Temp Pulse Resp BP Pulse Ox 97.9 F 58 L 20 154/78 H 98 03/19/17 08:32 03/19/17 08:32 03/19/17 08:32 03/19/17 08:32 03/19/17 08:32 - Medications Medications: Current Medications Acetaminophen (Tylenol 325mg Tab) 650 mg PO Q6 PRN PRN Reason: Pain, moderate (4-7) Atorvastatin Calcium (Lipitor) 20 mg PO HS [facility] Last Admin: 03/18/17 22:10 Dose: 20 mg Clotrimazole (Lotrimin 1% Cream) 1 applic TOP BID [facility] Last Admin: 03/19/17 08:58 Dose: 1 applic Enoxaparin Sodium (Lovenox) 40 mg SC DAILY [facility] PRN Reason: Protocol Last Admin: 03/19/17 09:00 Dose: 40 mg Gabapentin (Neurontin) 300 mg PO BID [facility] Last Admin: 03/19/17 08:58 Dose: 300 mg Hydromorphone HCl (Dilaudid) 1 mg IVP Q4 PRN PRN Reason: Pain, severe (8-10) Last Admin: 03/19/17 07:41 Dose: 1 mg Piperacillin Sod/Tazobactam (Sod 3.375 gm/ Sodium Chloride) 100 mls @ 100 mls/ hr IVPB Q8 [facility] Last Admin: 03/19/17 08:56 Dose: 100 mls/hr Daptomycin 570 mg/ Sodium (Chloride) 100 mls @ 100 mls/hr IV Q24H [facility] Stop: 03/22/17 11:16 Last Admin: 03/19/17 11:23 Dose: 100 mls/hr Insulin Detemir (Levemir) 64 units SC HS [facility] Last Admin: 03/18/17 22:12 Dose: 64 units Insulin Human Lispro (Humalog) 0 units SC TID [facility] PRN Reason: Protocol Last Admin: 03/19/17 08:57 Dose: 6 unit Lactic Acid (Lac-Hydrin 12% Lotion (225 G)) 1 applic TOP BID [facility] Last Admin: 03/19/17 08:57 Dose: 1 appl Losartan Potassium (Cozaar) 100 mg PO HS [facility] Last Admin: 03/18/17 22:10 Dose: 100 mg [id number]-0-Cttr Ethyl Esters (Lovaza) 2 gm PO BID [facility] Last Admin: 03/19/17 09:00 Dose: 2 gm - Labs Labs: - Additional Findings Additional findings: - Constitutional Appears: Non-toxic, No Acute Distress - Head Exam Head Exam: ATRAUMATIC - Eye Exam Eye Exam: EOMI - ENT Exam ENT Exam: Normal Oropharynx - Neck Exam Neck exam: Positive for: Full Rom - Respiratory Exam Respiratory Exam: Clear to Auscultation Bilateral, NORMAL BREATHING PATTERN - Cardiovascular Exam Cardiovascular Exam: RRR, +S1, +S2 - GI/Abdominal Exam GI & Abdominal Exam: Normal Bowel Sounds, Soft Additional comments: NT, ND - Extremities Exam Additional comments: right foot with second toe amputation /debridement site with spacking in mid wound section in place and sutures in place on sup and inf aspect, less edematous and less erythematous compared to 2 days ago, no malodor left foot with second and third toe amp/debridement site with packing ion place in mid wound site sutures in place on sup and inferior aspect, no active discharge, no malodor, but there is edema and erythema but less than the right toe region - Neurological Exam Neurological exam: Alert, Oriented x 3 Laboratory Results - last 72 hr 03/17/17 03/17/17 03/17/17 00:30 00:30 00:30 WBC 14.1 H D RBC 3.68 L Hgb 9.8 L Hct 29.4 L MCV 79.9 L D MCH 26.6 L MCHC 33.3 RDW 14.2 Plt Count 333 MPV 6.9 L Neut % (Auto) 78.6 H Lymph % (Auto) 12.8 L Dent % (Auto) 7.2 Eos % (Auto) 0.7 Baso % (Auto) 0.7 Neut # 11.1 H Lymph # 1.8 Dent # 1.0 H Eos # 0.1 Baso # 0.1 ESR PT INR Sodium 134 Potassium 4.2 Chloride 100 Carbon Dioxide 24 Anion Gap 15 BUN 23 H Creatinine 1.2 Est GFR ( Amer) > 60 Est GFR (Non-Af Amer) > 60 POC Glucose (mg/dL) Random Glucose 190 H Lactic Acid 1.0 Calcium 9.1 Total Bilirubin 1.3 AST 26 ALT 34 Alkaline Phosphatase 102 Total Protein 8.7 H Albumin 3.9 Globulin 4.7 H Albumin/Globulin Ratio 0.8 L 03/17/17 03/17/17 03/17/17 00:42 06:48 10:55 WBC RBC Hgb Hct MCV MCH MCHC RDW Plt Count MPV Neut % (Auto) Lymph % (Auto) Dent % (Auto) Eos % (Auto) Baso % (Auto) Neut # Lymph # Dent # Eos # Baso # ESR PT INR Sodium Potassium Chloride Carbon Dioxide Anion Gap BUN Creatinine Est GFR ( Amer) Est GFR (Non-Af Amer) POC Glucose (mg/dL) 202 H 246 H 356 H Random Glucose Lactic Acid Calcium Total Bilirubin AST ALT Alkaline Phosphatase Total Protein Albumin Globulin Albumin/Globulin Ratio 03/17/17 03/17/17 03/17/17 12:15 17:23 20:20 WBC RBC Hgb Hct MCV MCH MCHC RDW Plt Count MPV Neut % (Auto) Lymph % (Auto) Dent % (Auto) Eos % (Auto) Baso % (Auto) Neut # Lymph # Dent # Eos # Baso # ESR > 120 H PT 15.2 H INR 1.3 H Sodium Potassium Chloride Carbon Dioxide Anion Gap BUN Creatinine Est GFR ( Amer) Est GFR (Non-Af Amer) POC Glucose (mg/dL) 321 H Random Glucose Lactic Acid Calcium Total Bilirubin AST ALT Alkaline Phosphatase Total Protein Albumin Globulin Albumin/Globulin Ratio 03/17/17 03/18/17 03/18/17 20:54 05:30 06:01 WBC 7.0 D RBC 3.51 L Hgb 9.5 L Hct 28.0 L MCV 79.9 L MCH 27.1 MCHC 34.0 RDW 14.1 Plt Count 309 MPV 6.9 L Neut % (Auto) 65.0 Lymph % (Auto) 19.4 L Dent % (Auto) 8.9 Eos % (Auto) 6.0 H Baso % (Auto) 0.7 Neut # 4.6 Lymph # 1.4 Dent # 0.6 Eos # 0.4 Baso # 0.1 ESR PT INR Sodium Potassium Chloride Carbon Dioxide Anion Gap BUN Creatinine Est GFR ( Amer) Est GFR (Non-Af Amer) POC Glucose (mg/dL) 242 H 230 H Random Glucose Lactic Acid Calcium Total Bilirubin AST ALT Alkaline Phosphatase Total Protein Albumin Globulin Albumin/Globulin Ratio 03/18/17 03/18/17 03/18/17 11:05 17:16 21:36 WBC RBC Hgb Hct MCV MCH MCHC RDW Plt Count MPV Neut % (Auto) Lymph % (Auto) Dent % (Auto) Eos % (Auto) Baso % (Auto) Neut # Lymph # Dent # Eos # Baso # ESR PT INR Sodium Potassium Chloride Carbon Dioxide Anion Gap BUN Creatinine Est GFR ( Amer) Est GFR (Non-Af Amer) POC Glucose (mg/dL) 326 H 229 H 268 H Random Glucose Lactic Acid Calcium Total Bilirubin AST ALT Alkaline Phosphatase Total Protein Albumin Globulin Albumin/Globulin Ratio 03/19/17 03/19/17 06:09 10:58 WBC RBC Hgb Hct MCV MCH MCHC RDW Plt Count MPV Neut % (Auto) Lymph % (Auto) Dent % (Auto) Eos % (Auto) Baso % (Auto) Neut # Lymph # Dent # Eos # Baso # ESR PT INR Sodium Potassium Chloride Carbon Dioxide Anion Gap BUN Creatinine Est GFR ( Amer) Est GFR (Non-Af Amer) POC Glucose (mg/dL) 298 H 325 H Random Glucose Lactic Acid Calcium Total Bilirubin AST ALT Alkaline Phosphatase Total Protein Albumin Globulin Albumin/Globulin Ratio Microbiology 03/17/17 11:00 Foot - Right Gram Stain - Final 03/17/17 11:00 Foot - Right Wound Culture - Final Enterobacter Aerogenes Staphylococcus Aureus Corynebacterium Species 03/17/17 11:00 Foot - Left Gram Stain - Final 03/17/17 11:00 Foot - Left Wound Culture - Final Staphylococcus Aureus Enterobacter Aerogenes 03/17/17 00:30 Blood Blood Culture - Preliminary NO GROWTH AFTER 48 HOURS 03/17/17 00:30 Blood Blood Culture - Preliminary NO GROWTH AFTER 48 HOURS Assessment and Plan (1) Cellulitis Status: Acute (2) Abscess and cellulitis Status: Acute (3) Foot infection Status: Acute - Assessment and Plan (Free Text) Assessment: A/P- 41 year old amle with DM II, HTN admitted with b/l foot cellulitis around the b /l toe surgical sites. afebrile minimal leukocytosis has resolved foot wound cx- MSSA and enterobacter and corynebacterium blood cx- neg x 2 high ESR bone bx path report from earlier this month post surgery was negative for OM. plan- feeet still quite edematous , erythema is less but still present. advise to continue with current antibiotics IV daptomycin for the staph and zosyn for the enterobacter and it will cover corynebacterium as well. enterobacter was noted to be sensitive to zosyn. I would still advise either MRI or CT scan to see the extent of the underlying abscess. pt. will most likely need 2-3 weeks of IV antibiotics. He has left chest lifeport in place which as per pt. has been there for 2 years w/o any problems hence when the time comes that he is ready for discharge from podiatry standpoint he can complete his ABX treatment at home via life port. advise at this time to also send one blood cx from the port to make sure it is sterile. All above d/w pt. at length and he verbalizes full understanding of all above.
--- NOTE | 2017-03-19 14:42 | CP.PCM.PN ---
Subjective - Date & Time of Evaluation Date of Evaluation: 03/19/17 Time of Evaluation: 10:10 - Subjective Subjective: 41 year old male patient with PMHx DM, HTN, HLD seen at bedside for painful surgical sites b/l, 1 week s/p R debridement of nonhealing ulceration and L debridement of infected ulceration. Patient seen resting in bed comfortably, AAOx3 and NAD. Patient states that he did not see any drainage from either foot today. Minimal strikethrough is present on dressings. Patient states the burning sensation he was experiencing on his R foot has decreased since yesterday. Patient reports the pain to his surgical sites are well-controlled with pain medications. Patient denies N/V/F/D/C/SOB/CP. No other pedal complaints at this time. Objective - Vital Signs/Intake and Output Vital Signs (last 24 hours): Temp Pulse Resp BP Pulse Ox 97.9 F 58 L 20 154/78 H 98 03/19/17 08:32 03/19/17 08:32 03/19/17 08:32 03/19/17 08:32 03/19/17 08:32 - Medications Medications: Current Medications Acetaminophen (Tylenol 325mg Tab) 650 mg PO Q6 PRN PRN Reason: Pain, moderate (4-7) Atorvastatin Calcium (Lipitor) 20 mg PO HS [facility] Last Admin: 03/18/17 22:10 Dose: 20 mg Clotrimazole (Lotrimin 1% Cream) 1 applic TOP BID [facility] Last Admin: 03/19/17 08:58 Dose: 1 applic Enoxaparin Sodium (Lovenox) 40 mg SC DAILY [facility] PRN Reason: Protocol Last Admin: 03/19/17 09:00 Dose: 40 mg Gabapentin (Neurontin) 300 mg PO BID [facility] Last Admin: 03/19/17 08:58 Dose: 300 mg Hydromorphone HCl (Dilaudid) 1 mg IVP Q4 PRN PRN Reason: Pain, severe (8-10) Last Admin: 03/19/17 07:41 Dose: 1 mg Piperacillin Sod/Tazobactam (Sod 3.375 gm/ Sodium Chloride) 100 mls @ 100 mls/ hr IVPB Q8 [facility] Last Admin: 03/19/17 08:56 Dose: 100 mls/hr Daptomycin 570 mg/ Sodium (Chloride) 100 mls @ 100 mls/hr IV Q24H [facility] Stop: 03/22/17 11:16 Last Admin: 03/19/17 11:23 Dose: 100 mls/hr Insulin Detemir (Levemir) 64 units SC [facility] Last Admin: 03/18/17 22:12 Dose: 64 units Insulin Human Lispro (Humalog) 0 units SC TID [facility] PRN Reason: Protocol Last Admin: 03/19/17 12:42 Dose: 8 unit Lactic Acid (Lac-Hydrin 12% Lotion (225 G)) 1 applic TOP BID [facility] Last Admin: 03/19/17 08:57 Dose: 1 appl Losartan Potassium (Cozaar) 100 mg PO HS [facility] Last Admin: 03/18/17 22:10 Dose: 100 mg Tnarc-7-Bzlw Ethyl Esters (Lovaza) 2 gm PO BID [facility] Last Admin: 03/19/17 09:00 Dose: 2 gm - Labs Labs: 03/18/17 05:30 PT 15.2 Seconds (9.8-13.1) H 03/17/17 12:15 INR 1.3 (0.9-1.2) H 03/17/17 12:15 - Constitutional Appears: Well, Non-toxic, No Acute Distress - Extremities Exam Additional comments: Vasc: DP & PT pulses 3/4, Moderate ankle edema, CFT < 3 sec to all digits, TG warm to warm b/l Neuro: patient insensate however able to feel pain this visit Derm: Surgical incisions to previous 2nd digit amps b/l appears well coapted. Erythema noted to the dorsum of forefoot, decreasing. Minimal sanguinous drainage expressed from R incision. Minimal serosanguinous drainage expressed from L incision plantarly. Ortho: Multiple digital amputations noted. Pain on palpation noted to dorsum of forefoot in area of erythema. - Neurological Exam Neurological Exam: Alert, Awake, Oriented x3 - Psychiatric Exam Psychiatric exam: Normal Affect, Normal Mood Assessment and Plan - Assessment and Plan (Free Text) Assessment: 41 year old male PMHx DM, HTN, HLD, hypercholesterolemia with b/l foot cellulitis 1 week s/p debridement ulceration sub 2nd met b/l. Plan: Patient seen and evaluated at bedside. Discussed with attending, Dr. Wright. Charts, labs, vitals reviewed = afebrile Final wound culture results reviewed: - R foot = Enterobacter Aerogenes, Staph Aureus, Corynebacterium Species - L foot = Staph Aureus, Enterobacter Aerogenes Appreciate abx recs per ID: Continue IV daptomycin for staph and zosyn for enterobacter and it will cover corynebacterium as well. Pt will most likely need 2-3 weeks of IV abx. Has L chest lifeport in place so can complete abx tx at home via life port Appreciate ID recs, follow up MRI ordered to visualize extent of underlying abscess. Both feet packed with 1/4 in Iodosorb and dressed with DSD. Continue with pain mgmt per medicine = Tylenol, Dilaudid Podiatry will continue to follow patient while in house
[2017-03-19] MEDS: Insulin Detemir 100 Units/ml Inj SC SCH (21:51)
--- NOTE | 2017-03-19 23:38 | CP.PCM.PN ---
Subjective - Date & Time of Evaluation Date of Evaluation: 03/19/17 Time of Evaluation: 20:25 Objective - Vital Signs/Intake and Output Vital Signs (last 24 hours): Temp Pulse Resp BP Pulse Ox 97.6 F 60 18 162/81 H 99 03/19/17 15:56 03/19/17 21:52 03/19/17 15:56 03/19/17 21:52 03/19/17 15:56 - Medications Medications: Current Medications Acetaminophen (Tylenol 325mg Tab) 650 mg PO Q6 PRN PRN Reason: Pain, moderate (4-7) Atorvastatin Calcium (Lipitor) 20 mg PO HS [facility] Last Admin: 03/19/17 21:52 Dose: 20 mg Clotrimazole (Lotrimin 1% Cream) 1 applic TOP BID [facility] Last Admin: 03/19/17 17:42 Dose: Not Given Enoxaparin Sodium (Lovenox) 40 mg SC DAILY [facility] PRN Reason: Protocol Last Admin: 03/19/17 09:00 Dose: 40 mg Gabapentin (Neurontin) 300 mg PO BID [facility] Last Admin: 03/19/17 16:35 Dose: 300 mg Hydromorphone HCl (Dilaudid) 1 mg IVP Q4 PRN PRN Reason: Pain, severe (8-10) Last Admin: 03/19/17 16:30 Dose: 1 mg Piperacillin Sod/Tazobactam (Sod 3.375 gm/ Sodium Chloride) 100 mls @ 100 mls/ hr IVPB Q8 [facility] Last Admin: 03/19/17 16:34 Dose: 100 mls/hr Daptomycin 570 mg/ Sodium (Chloride) 100 mls @ 100 mls/hr IV Q24H [facility] Stop: 03/22/17 11:16 Last Admin: 03/19/17 11:23 Dose: 100 mls/hr Insulin Detemir (Levemir) 64 units SC [facility] Last Admin: 03/19/17 21:51 Dose: 64 units Insulin Human Lispro (Humalog) 0 units SC TID [facility] PRN Reason: Protocol Last Admin: 03/19/17 17:38 Dose: 6 unit Lactic Acid (Lac-Hydrin 12% Lotion (225 G)) 1 applic TOP BID [facility] Last Admin: 03/19/17 16:36 Dose: 1 appl Losartan Potassium (Cozaar) 100 mg PO [facility] Last Admin: 03/19/17 21:52 Dose: 100 mg Izlfl-3-Ekxo Ethyl Esters (Lovaza) 2 gm PO BID [facility] Last Admin: 03/19/17 16:35 Dose: 2 gm - Labs Labs: 03/18/17 05:30 PT 15.2 Seconds (9.8-13.1) H 03/17/17 12:15 INR 1.3 (0.9-1.2) H 03/17/17 12:15
[2017-03-20] MEDS: Piperacillin/Tazobact 3.375 GM in Sodium Chloride 0.9% 100 ML IVPB SCH ×3 (00:29→17:18)
[2017-03-20] MEDS ORDERED: HYDROmorphone 0.5 mg/0.5 ml ISec IVP ONE (06:35)
--- NOTE | 2017-03-20 07:34 | CP.PCM.PN ---
Subjective - Date & Time of Evaluation Date of Evaluation: 03/20/17 Time of Evaluation: 06:40 - Subjective Subjective: 41 year old male patient with PMHx DM, HTN, HLD seen at bedside for painful surgical sites b/l, 12 days s/p R debridement of nonhealing ulceration and L debridement of infected ulceration (DOS 03/08/17). Patient seen sleeping in bed comfortably, AAOx3 and NAD. Patient states he noticed more drainage from either foot today. Patient states the burning sensation he was experiencing on his R foot has decreased since yesterday however the sensation occasionally travels up his R leg. Patient reports the pain to his surgical sites are well- controlled with pain medications. Patient denies N/V/F/D/C/SOB/CP. No other pedal complaints at this time. Objective - Vital Signs/Intake and Output Vital Signs (last 24 hours): Temp Pulse Resp BP Pulse Ox 97.1 F L 73 18 152/84 H 98 03/20/17 01:39 03/20/17 01:39 03/20/17 01:39 03/20/17 01:39 03/20/17 01:39 - Medications Medications: Current Medications Acetaminophen (Tylenol 325mg Tab) 650 mg PO Q6 PRN PRN Reason: Pain, moderate (4-7) Atorvastatin Calcium (Lipitor) 20 mg PO HS [facility] Last Admin: 03/19/17 21:52 Dose: 20 mg Clotrimazole (Lotrimin 1% Cream) 1 applic TOP BID [facility] Last Admin: 03/19/17 17:42 Dose: Not Given Enoxaparin Sodium (Lovenox) 40 mg SC DAILY [facility] PRN Reason: Protocol Last Admin: 03/19/17 09:00 Dose: 40 mg Gabapentin (Neurontin) 300 mg PO BID [facility] Last Admin: 03/19/17 16:35 Dose: 300 mg Piperacillin Sod/Tazobactam (Sod 3.375 gm/ Sodium Chloride) 100 mls @ 100 mls/ hr IVPB Q8 [facility] Last Admin: 03/20/17 00:29 Dose: 100 mls/hr Daptomycin 570 mg/ Sodium (Chloride) 100 mls @ 100 mls/hr IV Q24H [facility] Stop: 03/22/17 11:16 Last Admin: 03/19/17 11:23 Dose: 100 mls/hr Insulin Detemir (Levemir) [address] [facility] Last Admin: 03/19/17 21:51 Dose: 64 units Insulin Human Lispro (Humalog) 0 units SC TID [facility] PRN Reason: Protocol Last Admin: 03/19/17 17:38 Dose: 6 unit Lactic Acid (Lac-Hydrin 12% Lotion (225 G)) 1 applic TOP BID [facility] Last Admin: 03/19/17 16:36 Dose: 1 appl Losartan Potassium (Cozaar) [address] [facility] Last Admin: 03/19/17 21:52 Dose: 100 mg Jndcj-5-Zvul Ethyl Esters (Lovaza) 2 gm PO BID [facility] Last Admin: 03/19/17 16:35 Dose: 2 gm - Labs Labs: 03/18/17 05:30 PT 15.2 Seconds (9.8-13.1) H 03/17/17 12:15 INR 1.3 (0.9-1.2) H 03/17/17 12:15 - Constitutional Appears: Well, Non-toxic, No Acute Distress - Extremities Exam Additional comments: Strikethrough noted to plantar aspect of dressings b/l, increase in drainage since yesterday. Vasc: DP & PT pulses 2/4--no longer 3/4 bounding pulses, Moderate ankle edema, CFT < 3 sec to all digits, TG warm to warm b/l Neuro: patient typically insensate however able to feel pain during dressing change Derm: Surgical incisions to previous 2nd digit amps b/l are approximated well, however there is an opening a the distal aspect of surgical incisions to express drainage. Erythema noted to the dorsum of forefoot, decreasing. Slight sanguinous drainage expressed from R incision. Slight serosanguinous drainage expressed from L incision plantarly. Ortho: Multiple digital amputations noted. Pain on palpation noted to dorsum of forefoot in area of erythema. Pain on palpation while expressing fluid. - Neurological Exam Neurological Exam: Alert, Awake, Oriented x3 - Psychiatric Exam Psychiatric exam: Normal Affect, Normal Mood Assessment and Plan - Assessment and Plan (Free Text) Assessment: 41 year old male PMHx DM, HTN, HLD, hypercholesterolemia with b/l foot cellulitis 12 days s/p debridement ulceration sub 2nd met b/l (DOS 03/08/17). Plan: Patient seen and evaluated at bedside. Discussed with attending, Dr. Wright. Charts, labs, vitals reviewed = afebrile Final wound culture results reviewed: - R foot = Enterobacter Aerogenes, Staph Aureus, Corynebacterium Species - L foot = Staph Aureus, Enterobacter Aerogenes Appreciate abx recs per ID: Continue IV daptomycin for staph and zosyn for enterobacter and it will cover corynebacterium as well. Pt will most likely need 2-3 weeks of IV abx. Has L chest lifeport in place so can complete abx tx at home via life port F/U MRI report Both feet packed with 1/4 inch packing strip and dressed with DSD. Continue with pain mgmt per medicine = Tylenol, Dilaudid Podiatry will continue to follow patient while in house
[2017-03-20] MEDS: Insulin Lispro (humaLOG) 100 Units/ml Inj SC SCH ×3 (08:14→17:18)
[2017-03-20] MEDS: Enoxaparin 40 mg Syringe SC SCH (09:09)
[2017-03-20] MEDS: Omega-3-Acid Ethyl Esters 1 GM Cap PO SCH ×2 (09:09→17:19)
[2017-03-20 09:30] LABS: HEMOGLOBIN 9.6 g/dL (12.0-18.0); MEAN CELL VOLUME 79.2 fl (80.0-94.0); MEAN CORPUSCULAR HEMOGLOBIN 27.2 pg (27.0-31.0); MEAN CORPUSCULAR HGB CONC 34.4 g/dL (33.0-37.0); RBC 3.53 Mil/uL (4.40-5.90); RED CELL DISTRIBUTION WIDTH 13.8 % (11.5-14.5); WHITE BLOOD COUNT 6.4 K/uL (4.8-10.8)
[2017-03-20 09:42] LABS: BLOOD UREA NITROGEN 9 mg/dl (9-20); CALCIUM 9.1 mg/dL (8.4-10.2); GFR AFRICAN-AMERICAN > 60; GFR NON-AFRICAN AMERICAN > 60
[2017-03-20] MEDS ORDERED: Gadodiamide 287 MG/ML VIAL (15ML) IV ONE (18:17)
--- NOTE | 2017-03-20 22:29 | CP.PCM.PN ---
Subjective - Date & Time of Evaluation Date of Evaluation: 03/20/17 Time of Evaluation: 19:15 Objective - Vital Signs/Intake and Output Vital Signs (last 24 hours): Temp Pulse Resp BP Pulse Ox 97.5 F L 66 17 153/80 H 96 03/20/17 16:09 03/20/17 16:09 03/20/17 16:09 03/20/17 16:09 03/20/17 16:09 - Medications Medications: Current Medications Acetaminophen (Tylenol 325mg Tab) 650 mg PO Q6 PRN PRN Reason: Pain, moderate (4-7) Atorvastatin Calcium (Lipitor) 20 mg PO [facility] Last Admin: 03/19/17 21:52 Dose: 20 mg Clotrimazole (Lotrimin 1% Cream) 1 applic TOP BID [facility] Last Admin: 03/20/17 17:19 Dose: Not Given Gabapentin (Neurontin) 300 mg PO BID [facility] Last Admin: 03/20/17 17:19 Dose: 300 mg Hydromorphone HCl (Dilaudid) 1 mg IVP Q4 PRN PRN Reason: Pain, severe (8-10) Last Admin: 03/20/17 17:36 Dose: 1 mg Piperacillin Sod/Tazobactam (Sod 3.375 gm/ Sodium Chloride) 100 mls @ 100 mls/ hr IVPB Q8 [facility] Last Admin: 03/20/17 17:18 Dose: 100 mls/hr Daptomycin 570 mg/ Sodium (Chloride) 100 mls @ 100 mls/hr IV Q24H [facility] Stop: 03/22/17 11:16 Last Admin: 03/20/17 11:49 Dose: 100 mls/hr Insulin Detemir (Levemir) 64 units SC [facility] Last Admin: 03/19/17 21:51 Dose: 64 units Insulin Human Lispro (Humalog) 0 units SC TID [facility] PRN Reason: Protocol Last Admin: 03/20/17 17:18 Dose: 8 unit Lactic Acid (Lac-Hydrin 12% Lotion (225 G)) 1 applic TOP BID [facility] Last Admin: 03/20/17 17:19 Dose: 1 appl Losartan Potassium (Cozaar) 100 mg PO [facility] Last Admin: 03/19/17 21:52 Dose: 100 mg Nzsli-8-Sqcb Ethyl Esters (Lovaza) 2 gm PO BID [facility] Last Admin: 03/20/17 17:19 Dose: 2 gm - Labs Labs: 03/19/17 09:15 03/19/17 09:15 PT 15.2 Seconds (9.8-13.1) H 03/17/17 12:15 INR 1.3 (0.9-1.2) H 03/17/17 12:15
[2017-03-20] MEDS: Insulin Detemir 100 Units/ml Inj SC SCH (22:39)
[2017-03-21] MEDS: Piperacillin/Tazobact 3.375 GM in Sodium Chloride 0.9% 100 ML IVPB SCH ×3 (00:55→16:16)
--- NOTE | 2017-03-21 08:26 | CP.PCM.PN ---
Subjective - Date & Time of Evaluation Date of Evaluation: 03/21/17 Time of Evaluation: 07:05 - Subjective Subjective: 41 year old male patient with PMHx DM, HTN, HLD seen at bedside for painful surgical sites b/l, 13 days s/p R debridement of nonhealing ulceration and L debridement of infected ulceration (DOS 03/08/17). Patient seen sleeping in bed comfortably, AAOx3 and NAD. Patient denies any acute overnight events. Patient states the burning sensation he was experiencing on his R foot has decreased since yesterday however the sensation occasionally travels up his R leg. Patient reports the pain to his surgical sites are well-controlled with pain medications. Patient denies N/V/F/D/C/SOB/CP. No other pedal complaints at this time. Objective - Vital Signs/Intake and Output Vital Signs (last 24 hours): Temp Pulse Resp BP Pulse Ox 98.4 F 63 19 154/83 H 96 03/21/17 00:51 03/21/17 00:51 03/21/17 00:51 03/21/17 00:51 03/21/17 00:51 - Medications Medications: Current Medications Acetaminophen (Tylenol 325mg Tab) 650 mg PO Q6 PRN PRN Reason: Pain, moderate (4-7) Atorvastatin Calcium (Lipitor) 20 mg PO HS [facility] Last Admin: 03/20/17 22:41 Dose: 20 mg Clotrimazole (Lotrimin 1% Cream) 1 applic TOP BID [facility] Last Admin: 03/20/17 17:19 Dose: Not Given Gabapentin (Neurontin) 300 mg PO BID [facility] Last Admin: 03/20/17 17:19 Dose: 300 mg Hydromorphone HCl (Dilaudid) 1 mg IVP Q4 PRN PRN Reason: Pain, severe (8-10) Last Admin: 03/20/17 17:36 Dose: 1 mg Piperacillin Sod/Tazobactam (Sod 3.375 gm/ Sodium Chloride) 100 mls @ 100 mls/ hr IVPB Q8 [facility] Last Admin: 03/21/17 00:55 Dose: 100 mls/hr Daptomycin 570 mg/ Sodium (Chloride) 100 mls @ 100 mls/hr IV Q24H [facility] Stop: 03/22/17 11:16 Last Admin: 03/20/17 11:49 Dose: 100 mls/hr Insulin Detemir (Levemir) 64 units SC [facility] Last Admin: 03/20/17 22:39 Dose: 64 units Insulin Human Lispro (Humalog) 0 units SC TID [facility] PRN Reason: Protocol Last Admin: 03/20/17 17:18 Dose: 8 unit Lactic Acid (Lac-Hydrin 12% Lotion (225 G)) 1 applic TOP BID [facility] Last Admin: 03/20/17 17:19 Dose: 1 appl Losartan Potassium (Cozaar) 100 mg PO [facility] Last Admin: 03/20/17 22:38 Dose: 100 mg Blntg-1-Ymqb Ethyl Esters (Lovaza) 2 gm PO BID [facility] Last Admin: 03/20/17 17:19 Dose: 2 gm - Labs Labs: 03/19/17 09:15 03/19/17 09:15 PT 15.2 Seconds (9.8-13.1) H 03/17/17 12:15 INR 1.3 (0.9-1.2) H 03/17/17 12:15 - Constitutional Appears: Well, Non-toxic, No Acute Distress - Extremities Exam Additional comments: Slight strikethrough noted to plantar aspect of dressings b/l, decreased in drainage since yesterday. Vasc: DP & PT pulses 2/4--no longer 3/4 bounding pulses, Moderate ankle edema, CFT < 3 sec to all digits, TG warm to warm b/l Neuro: patient typically insensate however able to feel pain during dressing change Derm: Surgical incisions to previous 2nd digit amps b/l are approximated well, however there is an opening a the distal aspect of surgical incisions to express drainage. Erythema noted to the dorsum of forefoot, decreasing. Slight serous drainage expressed from R incision. Slight serous drainage expressed from L incision plantarly. Ortho: Multiple digital amputations noted. Pain on palpation noted to dorsum of forefoot in area of erythema. - Neurological Exam Neurological Exam: Alert, Awake, Oriented x3 - Psychiatric Exam Psychiatric exam: Normal Affect, Normal Mood Assessment and Plan - Assessment and Plan (Free Text) Assessment: 41 year old male PMHx DM, HTN, HLD, hypercholesterolemia with b/l foot cellulitis 13 days s/p debridement ulceration sub 2nd met b/l (DOS 03/08/17). Plan: Patient seen and evaluated at bedside. Discussed with attending, Dr. Wright. Charts, labs, vitals reviewed = afebrile Final wound culture results reviewed: - R foot = Enterobacter Aerogenes, Staph Aureus, Corynebacterium Species - L foot = Staph Aureus, Enterobacter Aerogenes Appreciate abx recs per ID: Continue IV daptomycin for staph and zosyn for enterobacter and it will cover corynebacterium as well. Pt will most likely need 2-3 weeks of IV abx. Has L chest lifeport in place so can complete abx tx at home via life port F/U MRI report b/l feet dressed with 4x4s, ABDs, and kerlix Continue with pain mgmt per medicine = Tylenol, Dilaudid Stable from podiatry standpoint Recommend patient to be discharged home and follow up with Dr. Wright in the wound care clinic as outpatient Podiatry will continue to follow patient while in house
[2017-03-21] MEDS: Omega-3-Acid Ethyl Esters 1 GM Cap PO SCH ×2 (08:35→16:17)
[2017-03-21] MEDS: Insulin Lispro (humaLOG) 100 Units/ml Inj SC SCH ×4 (08:36→16:16)
[2017-03-21 08:37] VITALS: O2SAT 98
[2017-03-21 09:00] LABS: HEMOGLOBIN 10.4 g/dL (12.0-18.0); MEAN CELL VOLUME 79.2 fl (80.0-94.0); MEAN CORPUSCULAR HEMOGLOBIN 27.1 pg (27.0-31.0); MEAN CORPUSCULAR HGB CONC 34.2 g/dL (33.0-37.0); RBC 3.82 Mil/uL (4.40-5.90); WHITE BLOOD COUNT 6.1 K/uL (4.8-10.8)
[2017-03-21 09:41] LABS: BLOOD UREA NITROGEN 10 mg/dl (9-20); CALCIUM 9.4 mg/dL (8.4-10.2); GFR AFRICAN-AMERICAN > 60; GFR NON-AFRICAN AMERICAN > 60
--- NOTE | 2017-03-21 11:02 | MRI ---
MRI left foot History: Osteomyelitis. Comparison: X-ray dated 03/17/2017 Technique: Multi-echo multiplanar sequences were performed through the left foot without and with the use of intravenous contrast. 20 cc of Omni scan intravenous contrast was administered. Findings: Postsurgical changes seen, status post resection of the phalanges of the 2nd and 3rd digits as well as resection of the head of the proximal phalanx of the great toe. Suggestion of prior osteotomies of the 1st metatarsal head and 2nd metatarsal heads as well as posttraumatic or postsurgical deformities of the distal 3rd metatarsal. Prominent abnormal STIR hyperintensity with associated T1 hypointensity as well as postcontrast enhancement involving the head and neck of the 2nd metatarsal bone. More extensive STIR hyperintense signal and enhancement within the shaft of the 2nd metatarsal bone without confluent pattern of T1 hypointensity likely representing developing acute osteomyelitis and or reactive edema. Similarly, mild STIR hyperintensity and enhancement in the distal stump of the 3rd metatarsal bone with mild patchy T1 hypointensity which may represent reflect reactive edema versus developing acute osteomyelitis. Similar reactive edema seen at the 1st distal phalanx which may represent reactive edema versus developing acute osteomyelitis. Clinical correlation. Degenerative spurring and mild subchondral edema along the talonavicular and cuneonavicular joints. Degenerative changes along the 1st tarsometatarsal and metatarsus sesamoid joints. Subchondral cyst formation noted at the metatarsal head at this level. Diffuse soft tissue swelling, edema, and enhancement along the resection heads of the 2nd and 3rd toes with foci of plantar and lateral soft tissue irregularity suggestive for ulcers. Adjacent small foci of signal void and susceptibility artifact consistent with gas locules. Apparent 2.9 x 0.8 centimeter fluid collection surrounding the 2nd metatarsal head. Track-like foci extending from this to the plantar skin surface likely reflecting sinus tracts. Mild increased tenosynovial fluid around the peroneus longus tendon which may reflect tenosynovitis. Incidentally noted is signal abnormality seen at the dorsal aspect of the navicular bone which may represent reactive edema versus bone bruising versus subchondral osseous injury versus osteochondral change versus additional etiology. Additional patchy reactive edema is noted at the lateral aspect of the cuboid bone. Impression: Postsurgical changes with medial forefoot amputations and osteotomies as described above. Cellulitis of the soft tissues of the 2nd and 3rd toes stumps with foci of plantar and lateral ulceration. A fluid collection surrounding the head of the 2nd metatarsal bone consistent with abscess with sinus tracts draining to the plantar ulcer. Foci of soft tissue gas are suggested and may relate to presence of ulcers although cannot exclude infection with gas-forming organisms. Findings concerning for acute osteomyelitis of the 2nd metatarsal bone. Probable reactive bone marrow edema and or developing acute osteomyelitis in the distal stump end of the 3rd metatarsal bone. Signal abnormality at the 1st distal phalanx which may represent post surgical changes versus reactive edema versus developing early acute osteomyelitic changes. Clinical correlation. Scattered degenerative changes. These findings were preliminarily reported at 8:16 a.m. on 03/21/[address] Anirudh Guaman from [facility].
--- NOTE | 2017-03-21 11:19 | MRI ---
MRI right foot History: Osteomyelitis. Comparison: X-ray dated 03/17/2017 Technique: Multi-echo multiplanar were performed through the right foot without and with the use of intravenous contrast. Findings: Lobulated fluid collection measuring approximately 2.5 centimeters at the tip of the 2nd metatarsal shaft consistent with abscess and contiguous with open plantar ulceration. Soft tissue edema extends proximally around the 2nd metatarsal shaft in the 2nd and 3rd interspaces. Abnormal bone marrow edema and enhancement with decreased T1 signal seen throughout the 2nd metatarsal bone which is concerning for acute osteomyelitis. Adjacent mild reactive edema in the medial cuneiform bone which may be the sequelae of prominent osteochondral change. Cortical irregularity with articular surface flattening as well as bony hypertrophy at the 3rd metatarsal head. Subchondral cyst formation noted at the 3rd metatarsal head. This may be the sequelae of degenerative changes; however, superimposed early acute and or developing acute osteomyelitis cannot entirely be excluded. Clinical correlation. Adjacent signal abnormality at the base of the 3rd proximal phalanx. Osteotomy of the 1st metatarsal bone. Minimal subchondral cyst formation seen at the head of the 1st proximal phalanx. Mild nonspecific reactive edema seen within the anterior talus as well as the lateral cuboid and lateral calcaneus bones. Cortical irregularity with subchondral flattening also noted at the head of the 4th metatarsal bone. Impression: Findings concerning for acute osteomyelitis of the 2nd metatarsal shaft with a soft tissue abscess at the tip of the 2nd metatarsal bone. Cortical irregularity with articular surface flattening as well as bony hypertrophy at the 3rd metatarsal head. Subchondral cyst formation noted at the 3rd metatarsal head. This may be the sequelae of degenerative changes; however, superimposed early acute and or developing acute osteomyelitis cannot entirely be excluded. Clinical correlation. Adjacent signal abnormality at the base of the 3rd proximal phalanx. Postsurgical changes of the 1st digit as described above. Additional findings as above. These findings were preliminarily reported at 9:14 p.m. on 03/20/[address] Monica Kirkpatrick from [facility].
--- NOTE | 2017-03-21 12:25 | CP.PCM.PCO ---
Physician Communication Note - Physician Communication Note Physician Communication Note: Per Dr. Aguilar, Daptomycin and Zosyn for 6 weeks
[2017-03-21 15:54] VITALS: BP 155/89; PULSE 102; RESP 17; TEMP 98.4
--- NOTE | 2017-03-23 00:17 | CP.PCM.DIS ---
Provider - Provider Date of Admission: 03/17/17 01:35 Attending physician: Melissa Chaney MD Consults: 03/17/17 06:48 Nursing Referral for Wound Care Routine Comment: Physician Instructions: Reason For Exam: BILATERAL LOWER EXTREMITY - ULCERS Hospital Course - Lab Results Lab Results: Micro Results 03/19/17 16:40 Blood-Thru Central Line Blood Culture - Preliminary NO GROWTH AFTER 3 DAYS 03/17/17 11:00 Foot - Right Gram Stain - Final 03/17/17 11:00 Foot - Right Wound Culture - Final Enterobacter Aerogenes Staphylococcus Aureus Corynebacterium Species 03/17/17 11:00 Foot - Left Gram Stain - Final 03/17/17 11:00 Foot - Left Wound Culture - Final Staphylococcus Aureus Enterobacter Aerogenes Most Recent Lab Values WBC 6.1 K/uL (4.8-10.8) 03/21/17 08:20 RBC 3.82 Mil/uL (4.40-5.90) L 03/21/17 08:20 Hgb 10.4 g/dL (12.0-18.0) L 03/21/17 08:20 Hct 30.3 % (35.0-51.0) L 03/21/17 08:20 MCV 79.2 fl (80.0-94.0) L 03/21/17 08:20 MCH 27.1 pg (27.0-31.0) 03/21/17 08:20 MCHC 34.2 g/dL (33.0-37.0) 03/21/17 08:20 RDW 14.0 % (11.5-14.5) 03/21/17 08:20 Plt Count 377 K/uL (130-400) 03/21/17 08:20 MPV 6.9 fl (7.2-11.7) L 03/18/17 05:30 Neut % (Auto) 65.0 % (50.0-75.0) 03/18/17 05:30 Lymph % (Auto) 19.4 % (20.0-40.0) L 03/18/17 05:30 Sebastian % (Auto) 8.9 % (0.0-10.0) 03/18/17 05:30 Eos % (Auto) 6.0 % (0.0-4.0) H 03/18/17 05:30 Baso % (Auto) 0.7 % (0.0-2.0) 03/18/17 05:30 Neut # 4.6 K/uL (1.8-7.0) 03/18/17 05:30 Lymph # 1.4 K/uL (1.0-4.3) 03/18/17 05:30 Sebastian # 0.6 K/uL (0.0-0.8) 03/18/17 05:30 Eos # 0.4 K/uL (0.0-0.7) 03/18/17 05:30 Baso # 0.1 K/uL (0.0-0.2) 03/18/17 05:30 ESR > 120 mm/hr (0-15) H 03/17/17 20:20 PT 15.2 Seconds (9.8-13.1) H 03/17/17 12:15 INR 1.3 (0.9-1.2) H 03/17/17 12:15 Sodium 140 mmol/l (132-148) 03/21/17 08:20 Potassium 4.2 MMOL/L (3.6-5.0) 03/21/17 08:20 Chloride 102 mmol/L (98-107) 03/21/17 08:20 Carbon Dioxide 28 mmol/L (22-30) 03/21/17 08:20 Anion Gap 14 (10-20) 03/21/17 08:20 BUN 10 mg/dl (9-20) 03/21/17 08:20 Creatinine 0.8 mg/dL (0.8-1.5) 03/21/17 08:20 Est GFR ( Amer) > 60 03/21/17 08:20 Est GFR (Non-Af Amer) > 60 03/21/17 08:20 POC Glucose (mg/dL) 394 mg/dL (65-110) H 03/21/17 15:44 Random Glucose 265 mg/dL (75-110) H 03/21/17 08:20 Lactic Acid 1.0 MMOL/L (0.7-2.1) 03/17/17 00:30 Calcium 9.4 mg/dL (8.4-10.2) 03/21/17 08:20 Total Bilirubin 1.3 mg/dl (0.2-1.3) 03/17/17 00:30 AST 26 U/L (17-59) 03/17/17 00:30 ALT 34 U/L (21-72) 03/17/17 00:30 Alkaline Phosphatase 102 U/L (38-126) 03/17/17 00:30 Total Protein 8.7 G/DL (6.3-8.2) H 03/17/17 00:30 Albumin 3.9 g/dL (3.5-5.0) 03/17/17 00:30 Globulin 4.7 gm/dL (2.2-3.9) H 03/17/17 00:30 Albumin/Globulin Ratio 0.8 (1.0-2.1) L 03/17/17 00:30 Discharge Exam - Head Exam Head Exam: ATRAUMATIC Discharge Plan - Discharge Medications Prescriptions: DAPTOmycin [Cubicin] 570 mg IV DAILY #42 vial Piperacill/Tazo 3.375gm in Dex [Zosyn 3.375 Gm IV] 3.375 gm IVPB Q8 #144 bag - Follow Up Plan Condition: FAIR Disposition: HOME/ ROUTINE Instructions: Wound Infection (DC), Diabetic Foot Care (DC), Diabetes Mellitus Type 2 in Adults (DC), Acute Wound Care (DC), Diabetic Foot Ulcers (DC), Cellulitis (DC), Cellulitis (GEN), Abscess (GEN), Obesity (DC), Obesity (GEN) Referrals: [facility] [Outside] Geovanni Lan DPM [Staff Provider] -
== END 2017-03-21 18:25 | disposition home or self-care (01) | DRG 418 ==
LOC: H.ER 23:22 → H.ERHOLD 03-17 01:35 → H.MEDSURG1 03-17 05:46
PROVIDERS: ADMIT Internal Medicine; ATTEND Internal Medicine
PROC: 0H9NXZZ Drainage of Left Foot Skin, External Approach (ICD-10-PCS; principal; 2017-03-17)
PROC: 0H9MXZZ Drainage of Right Foot Skin, External Approach (ICD-10-PCS; 2017-03-17)
DX: T81.4XXA Infection following a procedure, initial encounter (principal); I10 Essential (primary) hypertension; L03.115 Cellulitis of right lower limb; L97.519 Non-pressure chronic ulcer of other part of right foot with unspecified severity; B95.61 Methicillin susceptible Staphylococcus aureus infection as the cause of diseases classified elsewhere; E11.9 Type 2 diabetes mellitus without complications; L03.116 Cellulitis of left lower limb; L97.529 Non-pressure chronic ulcer of other part of left foot with unspecified severity; B96.89 Other specified bacterial agents as the cause of diseases classified elsewhere; Z89.422 Acquired absence of other left toe(s); E78.00 Pure hypercholesterolemia, unspecified; E78.5 Hyperlipidemia, unspecified; Z88.1 Allergy status to other antibiotic agents

== ENCOUNTER 2017-04-03 15:45 | Emergency (ER) | payer OTHER ==
[2017-04-03 15:45] VITALS: BMI 39.8
[2017-04-03 16:22] VITALS: BP 124/67; PULSE 92; RESP 16; TEMP 98.4; O2SAT 98
--- NOTE | 2017-04-03 17:01 | ED PDOC ---
HPI: Wound Care - HPI Time Seen by Provider: 04/03/17 16:57 Chief Complaint (Nursing): Wound Check Chief Complaint (Provider): wound check History Per: Patient Exam Limitations: no limitations Additional Complaint(s): 41yo M in ED for change of portacath. states nurse will not be in to change until next sunday for a change. no medical complaints. Past Medical History Reviewed: Historical Data, Nursing Documentation, Vital Signs Vital Signs: Last Vital Signs Temp 98.4 F 04/03/17 16:20 Pulse 92 H 04/03/17 16:20 Resp 16 04/03/17 16:20 BP 124/67 04/03/17 16:20 Pulse Ox 98 04/03/17 16:20 - Medical History PMH: Diabetes, Gall Bladder Disease, HTN, Hypercholesterolemia, Hyperlipidemia Denies: Atrial Fibrillation, CAD, Chronic Kidney Disease - Surgical History Surgical History: Cholecystectomy - Family History Family History: States: Unknown Family Hx - Immunization History Hx Tetanus Toxoid Vaccination: Yes (2013) Hx Influenza Vaccination: Yes (2013) Hx Pneumococcal Vaccination: Yes (2013) - Home Medications Home Medications: Ambulatory Orders Medication Instructions Recorded Insulin Detemir [Levemir] 64 unit SC HS 10/14/14 Ammonium Lactate 12% [Lac-Hydrin 1 appl TOP BID 05/16/16 12% Lotion (225 g)] Clotrimazole 1% Cream [Lotrimin 1%] 1 appl TOP BID 05/16/16 Gabapentin [Neurontin] 300 mg PO BID 05/16/16 Insulin Lispro [humALOG] 35 unit SC TID 05/16/16 Losartan [Cozaar] 100 mg PO HS 05/16/16 [id number] Ethyl Esters 1 GM 2 gm PO BID 05/16/16 [Lovaza] DAPTOmycin [Cubicin] 570 mg IV DAILY #42 vial 03/21/17 Piperacill/Tazo 3.375gm in Dex 3.375 gm IVPB Q8 #144 bag 03/21/17 [Zosyn 3.375 Gm IV] - Allergies Allergies/Adverse Reactions: Allergies Allergy/AdvReac Type Severity Reaction Status Date / Time vancomycin Allergy SWELLING Verified 03/16/17 23:28 Review of Systems ROS Statement: Except As Marked, All Systems Reviewed And Found Negative Constitutional: Negative for: Fever Physical Exam - Reviewed Nursing Documentation Reviewed: Yes Vital Signs Reviewed: Yes - Physical Exam Appears: Positive for: Well, Non-toxic, No Acute Distress Skin: Positive for: Normal Color, Warm, DRY Cardiovascular/Chest: Positive for: Regular Rate, Rhythm, Other (left chest- portacath in place. no drainage. ) Respiratory: Positive for: CNT, Normal Breath Sounds Neurologic/Psych: Positive for: Alert, Oriented - ECG O2 Sat by Pulse Oximetry: 98 Medical Decision Making Medical Decision Making: PT portacath flushed well no complications. Pt advsied to wait for nurse on Sunday for change of portacath no urgency to have it changed at time. Disposition - Clinical Impression Clinical Impression: Encounter for wound re-check - Patient ED Disposition Is Patient to be Admitted: No - Disposition Disposition: Routine/Home Disposition Time: 17:45 Condition: STABLE Instructions: Irrigation Solution (Wash or rinse) Forms: [employer] (Estonian)
== END 2017-04-03 17:46 | disposition home or self-care (01) ==
LOC: H.ER 15:45
DX: Z48.00 Encounter for change or removal of nonsurgical wound dressing (principal); E11.9 Type 2 diabetes mellitus without complications; Z79.4 Long term (current) use of insulin

== ENCOUNTER 2018-10-08 18:42 | Inpatient (IN) | payer OTHER ==
[2018-10-08 18:42] VITALS: BMI 40.6
--- NOTE | 2018-10-08 19:32 | ED PDOC ---
Lower Extremity Pain/Injury Time Seen by Provider: 10/08/18 19:20 Chief Complaint (Nursing): Lower Extremity Problem/Injury Chief Complaint (Provider): Lower extremity pain History Per: Patient History/Exam Limitations: no limitations Onset/Duration Of Symptoms: Persistent Current Symptoms Are (Timing): Still Present Additional History Per: Patient Additional Complaint(s): 43yo male, with history of Diabetes, Gall Bladder Disease, HTN, Hypercholesterolemia, Hyperlipidemia, chronic osteomyelitis and cellulitis of lower extremity, comes to ER for evaluation per Dr. Hernandez's recommendation. Patient states he was evalauted by Dr. Hernandez at [facility] wound care facility, and was informed to come to the ER on 10/04 for further evaluation. Patient states he was unable to come on that date and thus presents today for f urther evaluation, debridement of worsening osteomyelitis and a possible skin graft. Patient states he was unable to come here on 10/04. He reports pain to bilateral pain, but denies any fever, chills. No additional complaints. PMD: Dr. Gillespie Past Medical History Reviewed: Historical Data, Nursing Documentation, Vital Signs Vital Signs: Last Vital Signs Temp 98.2 F 10/08/18 18:58 Pulse 110 H 10/08/18 18:58 Resp 16 10/08/18 18:58 BP 151/91 H 10/08/18 18:58 Pulse Ox 98 10/08/18 18:58 - Medical History PMH: Diabetes, Gall Bladder Disease, Hypercholesterolemia, Hyperlipidemia, Peripheral Edema (right foot due to infection) Denies: Atrial Fibrillation, CAD, Chronic Kidney Disease - Surgical History Surgical History: Cholecystectomy - Family History Family History: States: No Known Family Hx - Immunization History Hx Tetanus Toxoid Vaccination: Yes (2013) Hx Influenza Vaccination: Yes (2013) Hx Pneumococcal Vaccination: Yes (2013) - Home Medications Home Medications: Ambulatory Orders Medication Instructions Recorded RX: Gabapentin [Neurontin] 300 mg PO BID 05/16/16 RX: Losartan [Cozaar] 100 mg PO HS 05/16/16 RX: [id number]-[id number] Ethyl Esters 1 GM 2 gm PO BID 05/16/16 [Lovaza] Cholecalciferol (Vitamin D3) 1 2000 PO DAILY 10/09/18 [Vitamin D3] Insulin Detemir [Levemir] 10/09/18 Insulin Lispro [Humalog (Insulin 20 unit SQ 10/09/18 Lispro)] RX: Spironolactone [Aldactone] 25 mg PO DAILY 10/09/18 Simvastatin [Zocor] 40 mg PO HS 10/09/18 - Allergies Allergies/Adverse Reactions: Allergies Allergy/AdvReac Type Severity Reaction Status Date / Time vancomycin Allergy SWELLING Verified 10/08/18 18:58 Review of Systems ROS Statement: Except As Marked, All Systems Reviewed And Found Negative Constitutional: Negative for: Fever, Chills Musculoskeletal: Positive for: Leg Pain Physical Exam - Reviewed Nursing Documentation Reviewed: Yes Vital Signs Reviewed: Yes - Physical Exam Appears: Positive for: Non-toxic Head Exam: Positive for: ATRAUMATIC, NORMAL INSPECTION, NORMOCEPHALIC Skin: Positive for: Normal Color Eye Exam: Positive for: Normal appearance Neck: Positive for: Normal, Supple Cardiovascular/Chest: Positive for: Regular Rate, Rhythm Respiratory: Positive for: Normal Breath Sounds. Negative for: Wheezing Gastrointestinal/Abdominal: Positive for: Normal Exam, Soft Back: Positive for: Normal Inspection Extremity: Positive for: Other (bilateral feet in bandages; bandages appear to be clean, dry and intact) Neurologic/Psych: Positive for: Alert, Oriented. Negative for: Motor/Sensory Deficits - Laboratory Results Result Diagrams: 10/09/18 10:30 10/09/18 05:45 - ECG O2 Sat by Pulse Oximetry: 98 (RA) Pulse Ox Interpretation: Normal Medical Decision Making Medical Decision Making: Impression: 43yo che with worsening osteomyelitis Patient to be evaluated by podiatry resident at bedside Plan: -- Labs -- blood culture -- IV [place] 1933 Patient evaluated by podiatry resident at bedside Case discussed with Dr. Thomas and patient admitted under his service. Scribe Attestation: Documented by Nyla Flores acting as a scribe for Matthew Duarte MD. Provider Attestation: All medical record entries made by the Scribe were at my direction and personally dictated by me. I have reviewed the chart and agree that the record accurately reflects my personal performance of the history, physical exam, medical decision making, and the department course for this patient. I have also personally directed, reviewed, and agree with the discharge instructions and disposition. Disposition - Clinical Impression Clinical Impression: Osteomyelitis, Cellulitis - Disposition Disposition Time: 20:00 Condition: FAIR
[2018-10-08] MEDS ORDERED: Piperacillin/Tazobact 3.375 GM in Sodium Chloride 0.9% 100 ML IV STA (19:37)
[2018-10-08] MEDS ORDERED: Piperacillin/Tazobact 3.375 gm Inj IVPB ONE (19:49)
[2018-10-08] MEDS ORDERED: Morphine 4 MG/ML VIAL ONE (20:17)
[2018-10-08 20:39] LABS: BASO % 0.5 % (0.0-2.0); EOS # 0.1 K/uL (0.0-0.7); EOS % 0.9 % (0.0-4.0); HEMOGLOBIN 8.3 g/dL (12.0-18.0); LYMPH # 1.5 K/uL (1.0-4.3); MEAN CELL VOLUME 81.7 fl (80.0-94.0); MEAN CORPUSCULAR HEMOGLOBIN 27.1 pg (27.0-31.0); MEAN CORPUSCULAR HGB CONC 33.2 g/dL (33.0-37.0); MONO # 0.6 K/uL (0.0-0.8); MONO % 6.5 % (0.0-10.0); NEUT # 6.5 K/uL (1.8-7.0); NEUT % 75.1 % (50.0-75.0); RBC 3.04 Mil/uL (4.40-5.90); RED CELL DISTRIBUTION WIDTH 15.8 % (11.5-14.5); WHITE BLOOD COUNT 8.6 K/uL (4.8-10.8)
[2018-10-08 20:48] LABS: ALB/GLOB RATIO 0.8 (1.0-2.1); ALBUMIN 3.9 g/dL (3.5-5.0); ALT/SGPT 22 U/L (21-72); AST/SGOT 25 U/L (17-59); BLOOD UREA NITROGEN 15 mg/dl (9-20); CALCIUM 8.4 mg/dL (8.4-10.2); GFR NON-AFRICAN AMERICAN > 60
[2018-10-08] MEDS ORDERED: Morphine 4 MG/ML VIAL IVP ONE (21:00)
--- NOTE | 2018-10-08 21:14 | CP.PCM.CON ---
History of Present Illness - History of Present Illness History of Present Illness: Podiatry consult note for attending Dr. Lan: 43 year old male with PMH DM, HTN, HLD seen at bedside in the ED complaining of pain, redness, swelling and ulceration to his right foot. Patient is well known to podiatry service and used to follow up at [place] [facility] [place] with Dr. Lan. Patient has b/l Multiple ulcerations and Charcot foot. Patient states that he has this ulcerations since 8 years. Patient states that he was at the wound care center last Sunday when he was seen by Dr Lan who told hm to go directly to the ED but he didn't as there was no one to take care of his dogs. Patient states That yesterday his right foot started to develop new ulcer on the dorsum. He states that the ulcer is painful. 9/10 on VAS scale. He states that the ulcer is draining pus. Patient states that he has tingling and numbness in his feet all the times.. Patient denies N/V/F/D/C/SOB. No other pedal complaints at this time. PMH: DM, HTN, HLD, hypercholesterolemia PSH: cholecystectomy, Multiple foot surgery Allergies: vancomycin SH: vapes, Denies smoking, EtOH use or illicit drug use. Review of Systems - Review of Systems Review of Systems: As per HPI - Constitutional Constitutional: As Per HPI Past Patient History - Infectious Disease Hx of Infectious Diseases: None - Tetanus Immunizations Tetanus Immunization: Unknown - Past Medical History & Family History Past Medical History?: Yes - Past Social History Smoking Status: Unknown If Ever Smoked - CARDIAC Hx Cardiac Disorders: Yes Hx Atrial Fibrillation: No Hx Hypercholesterolemia: Yes Hx Peripheral Edema: Yes (right foot due to infection) - PULMONARY Hx Respiratory Disorders: No - NEUROLOGICAL Hx Neurological Disorder: No - HEENT Hx HEENT Problems: No - RENAL Hx Chronic Kidney Disease: No - ENDOCRINE/METABOLIC Hx Endocrine Disorders: Yes Hx Diabetes Mellitus Type 2: Yes - HEMATOLOGICAL/ONCOLOGICAL Hx Blood Disorders: No - INTEGUMENTARY Hx Dermatological Problems: Yes (ULCERS BOTH FEET) Hx Cellulitis: Yes (BOTH FEET) - MUSCULOSKELETAL/RHEUMATOLOGICAL Hx Musculoskeletal Disorders: No - GASTROINTESTINAL Hx Gastrointestinal Disorders: Yes Hx Gall Bladder Disease: Yes - GENITOURINARY/GYNECOLOGICAL Hx Genitourinary Disorders: No - PSYCHIATRIC Hx Psychophysiologic Disorder: No Hx Substance Use: No - SURGICAL HISTORY Hx Surgeries: Yes Hx Cholecystectomy: Yes - ANESTHESIA Hx Anesthesia: Yes Hx Anesthesia Reactions: No Hx Malignant Hyperthermia: No Meds Allergies/Adverse Reactions: Allergies Allergy/AdvReac Type Severity Reaction Status Date / Time vancomycin Allergy SWELLING Verified 10/08/18 18:58 - Medications Medications: Current Medications Morphine Sulfate (Morphine) 6 mg IVP ONCE ONE Stop: 10/08/18 20:28 Physical Exam - Constitutional Appears: Well, No Acute Distress - Head Exam Head Exam: ATRAUMATIC, NORMOCEPHALIC - Extremities Exam Additional comments: B/L LE focused exam: Vasc: DP & PT pulses 2/4, Moderate non pitting edema of both feet R > L, Cap refill < 3 sec to all digits, Temp gradient is warm to warmer with increase in warmth noted to dorsum of right foot. Erythema noted to the Right foot. Neuro: Gross sensation intact while protective sensations demnished b/l. Derm: R foot- An ulcer measures 1X1X0.3 cm noted at the dorsum of the R forefoot, Positive pus drainage, Positive malodor. No tracking, undermining or probing to bone noted. Positive clinical signs of active infection. Another ulcer submet 2 with hyperkeratotic border mesures 2X1.2X0.2 cm with no drainage, Positive malodor. No tracking, undermining or probing to bone noted. L foot- An ulcer submet 1 with hyperkeratotic border mesures 3X1.5X0.2 cm with no drainage, Positive malodor. No tracking, undermining or probing to bone noted. MSK: Multiple digital amputations and deformities noted. Pain on palpation noted to dorsum of forefoot in area of erythema on the right side. - Neurological Exam Neurological exam: Alert, Oriented x3 - Psychiatric Exam Psychiatric exam: Normal Affect, Normal Mood Results - Vital Signs Recent Vital Signs: Last Vital Signs Temp 98.2 F 10/08/18 18:58 Pulse 110 H 10/08/18 18:58 Resp 16 10/08/18 18:58 BP 151/91 H 10/08/18 18:58 Pulse Ox 98 10/08/18 20:05 - Labs Result Diagrams: 10/08/18 20:14 10/08/18 20:14 Labs: Laboratory Results - last 24 hr 10/08/18 10/08/18 10/08/18 19:39 20:14 20:14 Sodium 137 Potassium 4.0 Chloride 100 Carbon Dioxide 23 Anion Gap 18 BUN 15 Creatinine 0.8 Est GFR ( Amer) > 60 Est GFR (Non-Af Amer) > 60 POC Glucose (mg/dL) 149 H Random Glucose 155 H Lactic Acid 0.7 Calcium 8.4 Total Bilirubin 0.3 AST 25 ALT 22 Alkaline Phosphatase 102 Total Protein 8.6 H Albumin 3.9 Globulin 4.8 H Albumin/Globulin Ratio 0.8 L Assessment & Plan - Assessment and Plan (Free Text) Assessment: 43 year old male with PMH DM, HTN, HLD seen at bedside in the ED complaining of pain, redness, swelling and ulceration to his right foot. Plan: Patient seen and evaluated at bedside Discussed with attending, Dr. Lan Charts, labs, vitals reviewed = afebrile, WBC leukocytosis @ 8.6 Wound Cx collected and sent to the lab. Ordered b/l foot x-ray Ordered ID consult Patient received IV stat dose of Zosyn Patient to be admitted today by the primary team Podiatry will continue to follow up the patient while in house Thank you for consulting podiatry service. - Date & Time Date: 10/08/18 Time: 21:22
[2018-10-08] MEDS ORDERED: Morphine 4 MG/ML VIAL IVP PRN (22:49)
[2018-10-08] MEDS: Insulin Lispro (humaLOG) 100 Units/ml Inj SC SCH (23:00)
[2018-10-08] MEDS: Omega-3-Acid Ethyl Esters 1 GM Cap PO SCH (23:22)
[2018-10-09 06:39] LABS: HEMOGLOBIN 7.9 g/dL (12.0-18.0); MEAN CORPUSCULAR HEMOGLOBIN 27.1 pg (27.0-31.0); MEAN CORPUSCULAR HGB CONC 33.5 g/dL (33.0-37.0); RBC 2.92 Mil/uL (4.40-5.90); RED CELL DISTRIBUTION WIDTH 15.8 % (11.5-14.5)
[2018-10-09 06:52] LABS: ALB/GLOB RATIO 0.8 (1.0-2.1); ALBUMIN 3.5 g/dL (3.5-5.0); ALT/SGPT 21 U/L (21-72); AST/SGOT 19 U/L (17-59); BLOOD UREA NITROGEN 13 mg/dl (9-20); CALCIUM 8.5 mg/dL (8.4-10.2); GFR NON-AFRICAN AMERICAN > 60; HDL CHOLESTEROL 19 MG/DL (30-70)
[2018-10-09 06:56] LABS: LDL CHOLESTEROL 42 mg/dL (0-129)
[2018-10-09 07:02] LABS: INR 1.2; PROTHROMBIN TIME 13.8 Seconds (9.8-13.1)
[2018-10-09 07:04] LABS: PARTIAL THROMBOPLASTIN TIME 32.5 Seconds (25.6-37.1)
--- NOTE | 2018-10-09 08:21 | RAD ---
Date of service: 10/08/2018 PROCEDURE: Bilateral Feet Radiographs. HISTORY: B/L infected ulcers of the foot. R/O gas gangrene COMPARISON: Bilateral foot exam 06/03/2018 FINDINGS: BONES: Right Foot: Interval fracture and/or interval increase conspicuity of corner fracture 3rd proximal phalanx intra-articular extension intrinsic arthrosis here noted partial resection 1st cwdhcnipvl-klildxc-uujhfibul interval cortical destruction and ossific debris periosteal reaction 2nd distal phalanx-interval changes-marked osteomyelitis here inferred.. To radiolucency over the soft tissue amputation at this level interval progression findings compatible with cellulitis and has a history states gangrene. Left Foot: 2nd and 3rd digits are amputated at the metatarsal-phalangeal joint levels as before. No interval fracture . Smooth periosteal reaction distal 3rd metatarsal-similar. The medial 1st metatarsal head cortical irregularity with thin sclerotic borders similar. No radiographic evidence of acute on chronic osteomyelitis here appreciated. Chronic residual changes here are possible. JOINTS: Right Foot: Arthrosis 3rd metatarsal phalangeal joint with fracture as noted above here also present. Midfoot and tibiotalar arthrosis. Left Foot: Midfoot osteoarthrosis. Talar navicular arthrosis. Sclerotic changes distal tibia cortex no destruction grossly apparent. Tiny inferior calcaneal spur. Hammertoe like orientations 4th and 5th digit. Tapering contour and inferred partial resection of 1st proximal xpjpucc-vdnqxus-wtkyidtlm SOFT TISSUES: Right Foot diffuse soft tissue swelling-additional findings as noted above in the bone section. Left Foot: Diffuse soft tissue swelling. Medial bandaging inferred ulcer here. Gas like lucency compatible with ulcer on frontal view over 2nd metatarsal head inferred plantar forefoot an interval change. OTHER FINDINGS: Decreased plantar arch both feet. IMPRESSION: Interval osteomyelitis right foot distal 2nd metatarsal additional regional soft tissue changes compatible with the clinical history of ulcer and gangrene. Apparent interval increase conspicuity of a fracture nondisplaced but the probably intra-articular 3rd proximal phalanx overseas series [id number], image 6 less apparent on other views. May be an interval increase in conspicuity rather than interval change. Interval soft tissue changes in the left foot bordering the 2nd metatarsal head-as referenced above. No acute osteomyelitis in the left foot appreciated. Chronic findings as above left side. Other findings as above.
[2018-10-09] MEDS: Insulin Lispro (humaLOG) 100 Units/ml Inj SC SCH ×4 (09:32→22:45)
[2018-10-09] MEDS: Omega-3-Acid Ethyl Esters 1 GM Cap PO SCH ×2 (09:32→16:28)
[2018-10-09] MEDS: Silver Sulfadiazine 1% Cream (20 gm) TOP SCH (09:43)
--- NOTE | 2018-10-09 09:49 | CP.PCM.PN ---
Subjective - Date & Time of Evaluation Date of Evaluation: 10/09/18 Time of Evaluation: 09:48 - Subjective Subjective: Podiatry progress note for attending Dr. Lan: 43 year old male with PMH DM, HTN, HLD seen at bedside in the ED complaining of pain, redness, swelling and ulceration to his right foot. Patient is well known to podiatry service and used to follow up at [facility] with Dr. Lan. Patient has b/l Multiple ulcerations and Charcot foot. Denies any acute overnight events. Patient denies N/V/F/D/C/SOB. No other pedal complaints at this time. Objective - Vital Signs/Intake and Output Vital Signs (last 24 hours): Temp Pulse Resp BP Pulse Ox 98.6 F 59 L 20 104/57 L 98 10/09/18 08:34 10/09/18 08:34 10/09/18 08:34 10/09/18 08:34 10/09/18 08:34 - Medications Medications: Current Medications Gabapentin (Neurontin) 300 mg PO BID [facility] Last Admin: 10/09/18 09:32 Dose: 300 mg Insulin Human Lispro (Humalog) 0 units SC ACCU-CHECK CELI; Protocol Last Admin: 10/09/18 09:32 Dose: 3 units Losartan Potassium (Cozaar) 100 mg PO HS [facility] Last Admin: 10/08/18 23:21 Dose: 100 mg Morphine Sulfate (Morphine) 6 mg IVP Q6 PRN PRN Reason: Pain, severe (8-10) [id number] Ethyl Esters (Lovaza) 2 gm PO BID [facility] Last Admin: 10/09/18 09:32 Dose: 2 gm Silver Sulfadiazine (Silvadene 1% 20 Gm) 1 ea TOP DAILY [facility] Last Admin: 10/09/18 09:43 Dose: Not Given - Labs Labs: 10/09/18 05:45 10/09/18 05:45 PT 13.8 Seconds (9.8-13.1) H 10/09/18 05:45 INR 1.2 10/09/18 05:45 APTT 32.5 Seconds (25.6-37.1) 10/09/18 05:45 - Extremities Exam Additional comments: B/L LE focused exam: Vasc: DP & PT pulses 2/4, Moderate non pitting edema of both feet R > L, Cap refill < 3 sec to all digits, Temp gradient is warm to warmer with increase in warmth noted to dorsum of right foot. Erythema noted to the Right foot. Neuro: Gross sensation intact while protective sensations demnished b/l. Derm: R foot- An ulcer measures 1X1X0.3 cm noted at the dorsum of the R forefoot, Positive pus drainage, Positive malodor. No tracking, undermining or probing to bone noted. Positive clinical signs of active infection. Another ulcer submet 2 with hyperkeratotic border measures 2X1.2X0.2 cm with no drainage, Positive malodor. No tracking, undermining or probing to bone noted. L foot- An ulcer submet 1 with hyperkeratotic border mesures 3X1.5X0.2 cm with no drainage, Positive malodor. No tracking, undermining or probing to bone noted. MSK: Multiple digital amputations and deformities noted. Pain on palpation noted to dorsum of forefoot in area of erythema on the right side. Assessment and Plan - Assessment and Plan (Free Text) Assessment: 43 year old male with PMH DM, HTN, HLD seen at bedside for right foot infected ulcer with possible osteomyelitis Plan: Patient seen and evaluated at bedside Discussed with attending, Dr. Lan Charts, labs, vitals reviewed = afebrile, WBC leukocytosis @ 8.6 ESR >120 Wound Cx pending Foot x-ray: Om rght foot distal 2nd met with soft tissue changes. ID on board; appreciate recommendations Patient received IV stat dose of Zosyn Podiatry plan: patient scheduled for wound debridement with met head resection at 1:30 on wednesday 10/11. Please provide medical/cardiac clearance. Bedside incision and drainage; 5 cc of purulent drainage expressed. Podiatry will continue to follow
--- NOTE | 2018-10-09 10:46 | CP.PCM.CON ---
History of Present Illness - History of Present Illness History of Present Illness: Infectious Disease Consultation Note- ASked to see this patietn at the request of and podiatry for celluliits/abscess of right foot and OM of the foot. HPI- Patient is a 43 year old male with PMH of Obesity, DM II, HTN, HLD with chronic b/l foot nonhealing ulcers who has been following with his cheese grader at the wound center at [facility] for a long time. Patient has b/l Multiple ulcerations and Charcot foot. Patient states that he has this ulcerations for the past 8 years. Patient states that he was at the wound care center last Sunday when he was seen by Dr Hernandez and was told to go to the ED but he didn't as there was no one to take care of his dogs. Patient states He stats 2 days ago he noticed a new ulcer on the dorsum of his right foot with swelling and raudel anad started to have pus discharge and hence he came in to be evaluated. He states that a month ago he was on IV antibiotics for his plantar ulcr for one month and he has a port in place for the past 5 years. he states his port is there for blood drawas and in case he needs IV abx. POrt is flushed regularly adn does not bother him. He states he gets hives with vancomycin. as per Podiatry his last IV abx was Sivextro a month ago Pt. has had I and D of his right foot abscess by podiatry on this admission . patient denies any fever or chills. PMH: DM, HTN, HLD, hypercholesterolemia PSH: cholecystectomy, Multiple foot surgery Allergies: vancomycin SH: vapes, Denies smoking, EtOH use or illicit drug use. Review of Systems - Review of Systems Review of Systems: ROS- denies any fever or chills, denies any RODRIGUEZ, denies any cough or sob, denies any chest pain, denies any n/v, denies any abd. pain, denies any dysurea, denies any diarrhea b/l plantar ulcers and now right dorsal foot abscess, redness, swelling and pain Past Patient History - Infectious Disease Hx of Infectious Diseases: None - Tetanus Immunizations Tetanus Immunization: Unknown - Past Medical History & Family History Past Medical History?: Yes - Past Social History Smoking Status: Never Smoked - CARDIAC Hx Cardiac Disorders: Yes Hx Hypercholesterolemia: Yes Hx Peripheral Edema: Yes (right foot due to infection) - PULMONARY Hx Respiratory Disorders: No - NEUROLOGICAL Hx Neurological Disorder: No - HEENT Hx HEENT Problems: No - RENAL Hx Chronic Kidney Disease: No - ENDOCRINE/METABOLIC Hx Endocrine Disorders: Yes Hx Diabetes Mellitus Type 2: Yes - HEMATOLOGICAL/ONCOLOGICAL Hx Blood Disorders: No - INTEGUMENTARY Hx Dermatological Problems: Yes (ULCERS BOTH FEET) Hx Cellulitis: Yes (BOTH FEET) - MUSCULOSKELETAL/RHEUMATOLOGICAL Hx Musculoskeletal Disorders: No Hx Falls: No - GASTROINTESTINAL Hx Gastrointestinal Disorders: Yes Hx Gall Bladder Disease: Yes - GENITOURINARY/GYNECOLOGICAL Hx Genitourinary Disorders: No - PSYCHIATRIC Hx Psychophysiologic Disorder: No Hx Substance Use: No - SURGICAL HISTORY Hx Surgeries: Yes Hx Cholecystectomy: Yes - ANESTHESIA Hx Anesthesia: Yes Hx Anesthesia Reactions: No Hx Malignant Hyperthermia: No Meds Allergies/Adverse Reactions: Allergies Allergy/AdvReac Type Severity Reaction Status Date / Time vancomycin Allergy SWELLING Verified 10/08/18 18:58 - Medications Medications: Current Medications Gabapentin (Neurontin) 300 mg PO BID [facility] Last Admin: 10/09/18 09:32 Dose: 300 mg Insulin Human Lispro (Humalog) 0 units SC ACCU-CHECK CELI; Protocol Last Admin: 10/09/18 09:32 Dose: 3 units Losartan Potassium (Cozaar) 100 mg PO HS [facility] Last Admin: 10/08/18 23:21 Dose: 100 mg Morphine Sulfate (Morphine) 6 mg IVP Q6 PRN PRN Reason: Pain, severe (8-10) Last Admin: 10/09/18 10:02 Dose: 6 mg [id number] Ethyl Esters (Lovaza) 2 gm PO BID [facility] Last Admin: 10/09/18 09:32 Dose: 2 gm Silver Sulfadiazine (Silvadene 1% 20 Gm) 1 ea TOP DAILY [facility] Last Admin: 10/09/18 09:43 Dose: Not Given Physical Exam - Constitutional Appears: No Acute Distress - Head Exam Head Exam: ATRAUMATIC - Eye Exam Eye Exam: EOMI, PERRL - ENT Exam ENT Exam: Normal Oropharynx - Neck Exam Neck exam: Positive for: Full Rom - Respiratory Exam Respiratory Exam: Clear to Auscultation Bilateral, NORMAL BREATHING PATTERN - Cardiovascular Exam Cardiovascular Exam: RRR, +S1, +S2 - GI/Abdominal Exam GI & Abdominal Exam: Normal Bowel Sounds, Soft Additional comments: NT, ND - Extremities Exam Additional comments: 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 b/l plantar feet with round open ulcer left one dry and no discharge but open right plantar ulcer with open wound , some yellow/bloody discharge and right dorsal distal ffot with erythema , edema and smalllopening with purulent discharge - Neurological Exam Neurological exam: Alert, Oriented x3 Results - Vital Signs Recent Vital Signs: Last Vital Signs Temp 98.6 F 10/09/18 08:34 Pulse 59 L 10/09/18 08:34 Resp 20 10/09/18 08:34 BP 104/57 L 10/09/18 08:34 Pulse Ox 98 10/09/18 08:34 - Labs Result Diagrams: 10/09/18 10:30 10/09/18 05:45 Labs: Laboratory Results - last 24 hr 10/08/18 10/08/18 10/08/18 19:39 20:14 20:14 WBC 8.6 RBC 3.04 L Hgb 8.3 L D Hct 24.9 L MCV 81.7 D MCH 27.1 MCHC 33.2 RDW 15.8 H Plt Count 336 MPV 7.0 L Neut % (Auto) 75.1 H Lymph % (Auto) 17.0 L [place] % (Auto) 6.5 Eos % (Auto) 0.9 Baso % (Auto) 0.5 Neut # (Auto) 6.5 Lymph # (Auto) 1.5 [place] # (Auto) 0.6 Eos # (Auto) 0.1 Baso # (Auto) 0.0 ESR Cancelled PT INR APTT Sodium 137 Potassium 4.0 Chloride 100 Carbon Dioxide 23 Anion Gap 18 BUN 15 Creatinine 0.8 Est GFR ( Amer) > 60 Est GFR (Non-Af Amer) > 60 POC Glucose (mg/dL) 149 H Random Glucose 155 H Lactic Acid Calcium 8.4 Total Bilirubin 0.3 AST 25 ALT 22 Alkaline Phosphatase 102 Total Protein 8.6 H Albumin 3.9 Globulin 4.8 H Albumin/Globulin Ratio 0.8 L Triglycerides Cholesterol LDL Cholesterol Direct HDL Cholesterol 10/08/18 10/08/18 10/08/18 20:14 21:57 23:17 WBC RBC Hgb Hct MCV MCH MCHC RDW Plt Count MPV Neut % (Auto) Lymph % (Auto) [place] % (Auto) Eos % (Auto) Baso % (Auto) Neut # (Auto) Lymph # (Auto) [place] # (Auto) Eos # (Auto) Baso # (Auto) ESR > 120 H PT INR APTT Sodium Potassium Chloride Carbon Dioxide Anion Gap BUN Creatinine Est GFR ( Amer) Est GFR (Non-Af Amer) POC Glucose (mg/dL) 124 H Random Glucose Lactic Acid 0.7 Calcium Total Bilirubin AST ALT Alkaline Phosphatase Total Protein Albumin Globulin Albumin/Globulin Ratio Triglycerides Cholesterol LDL Cholesterol Direct HDL Cholesterol 10/09/18 10/09/18 10/09/18 05:45 05:45 05:45 WBC 6.0 RBC 2.92 L Hgb 7.9 L Hct 23.6 L MCV 81.0 MCH 27.1 MCHC 33.5 RDW 15.8 H Plt Count 298 MPV Neut % (Auto) Lymph % (Auto) [place] % (Auto) Eos % (Auto) Baso % (Auto) Neut # (Auto) Lymph # (Auto) [place] # (Auto) Eos # (Auto) Baso # (Auto) ESR PT 13.8 H INR 1.2 APTT 32.5 Sodium 135 Potassium 4.0 Chloride 97 L Carbon Dioxide 24 Anion Gap 18 BUN 13 Creatinine 0.8 Est GFR ( Amer) > 60 Est GFR (Non-Af Amer) > 60 POC Glucose (mg/dL) Random Glucose 311 H Lactic Acid Calcium 8.5 Total Bilirubin 0.4 AST 19 ALT 21 Alkaline Phosphatase 100 Total Protein 7.9 Albumin 3.5 Globulin 4.5 H Albumin/Globulin Ratio 0.8 L Triglycerides 146 Cholesterol 90 LDL Cholesterol Direct 42 HDL Cholesterol 19 L 10/09/18 05:53 WBC RBC Hgb Hct MCV MCH MCHC RDW Plt Count MPV Neut % (Auto) Lymph % (Auto) [place] % (Auto) Eos % (Auto) Baso % (Auto) Neut # (Auto) Lymph # (Auto) [place] # (Auto) Eos # (Auto) Baso # (Auto) ESR PT INR APTT Sodium Potassium Chloride Carbon Dioxide Anion Gap BUN Creatinine Est GFR ( Amer) Est GFR (Non-Af Amer) POC Glucose (mg/dL) 265 H Random Glucose Lactic Acid Calcium Total Bilirubin AST ALT Alkaline Phosphatase Total Protein Albumin Globulin Albumin/Globulin Ratio Triglycerides Cholesterol LDL Cholesterol Direct HDL Cholesterol Microbiology 10/08/18 19:50 Blood Blood Culture - Preliminary Gram Negative Edson 10/08/18 19:50 Blood Gram Stain - Final 10/08/18 18:00 Foot - Right Gram Stain - Final 10/08/18 18:00 Foot - Left Gram Stain - Final Microbiology 08/16/18 08:00 Foot - Right Gram Stain - Final 08/16/18 08:00 Foot - Right Wound Culture - Final Acinetobacter Baumannii Methicillin Resistant S Aureus Enterococcus Faecalis 07/27/17 12:28 Foot - Right Gram Stain - Final 07/27/17 12:28 Foot - Right Wound Culture - Final Proteus Mirabilis Staphylococcus Aureus Beta Hemolytic Strep Group B 05/24/18 15:18 Foot - Left Gram Stain - Final 05/24/18 15:18 Foot - Left Wound Culture - Final Staphylococcus Aureus Enterococcus Faecalis Proteus Mirabilis 10/04/18 16:51 Foot - Right Gram Stain - Final 10/04/18 16:51 Foot - Right Wound Culture - Final Methicillin Resistant S Aureus 09/20/18 16:19 Foot - Right Gram Stain - Final 09/20/18 16:19 Foot - Right Wound Culture - Final Enterobacter Cloacae Ssp Cloac Methicillin Resistant S Aureus Accession No. : [id number] Patient Name / ID : LILA LEVIN / [id number] Exam Date : 10/08/2018 22:34:55 ( Approved ) Study Comment : Sex / Age : M / 43Y Creator : franko borjas Dictator : Fernanda Tovar Mold Tooling Technician : Property Coordinator : Fernanda Tovar Approver2 : Report Date : 10/08/2018 23:41:45 My Comment : Date of service: 10/08/2018 PROCEDURE: Bilateral Feet Radiographs. HISTORY: B/L infected ulcers of the foot. R/O gas gangrene COMPARISON: Bilateral foot exam 06/03/2018 FINDINGS: BONES: Right Foot: Interval fracture and/or interval increase conspicuity of corner fracture 3rd proximal phalanx intra-articular extension intrinsic arthrosis here noted partial resection 1st mkteomeqtq-newikld-cdylcknrz interval cortical destruction and ossific debris periosteal reaction 2nd distal phalanx-interval changes-marked osteomyelitis here inferred.. To radiolucency over the soft tissue amputation at this level interval progression findings compatible with cellulitis and has a history states gangrene. Left Foot: 2nd and 3rd digits are amputated at the metatarsal-phalangeal joint levels as before. No interval fracture . Smooth periosteal reaction distal 3rd metatarsal-similar. The medial 1st metatarsal head cortical irregularity with thin sclerotic borders similar. No radiographic evidence of acute on chronic osteomyelitis here appreciated. Chronic residual changes here are possible. JOINTS: Right Foot: Arthrosis 3rd metatarsal phalangeal joint with fracture as noted above here also present. Midfoot and tibiotalar arthrosis. Left Foot: Midfoot osteoarthrosis. Talar navicular arthrosis. Sclerotic changes distal tibia cortex no destruction grossly apparent. Tiny inferior calcaneal spur. Hammertoe like orientations 4th and 5th digit. Tapering contour and inferred partial resection of 1st proximal sgzxgig-ecyxurf-vskdblzcu SOFT TISSUES: Right Foot diffuse soft tissue swelling-additional findings as noted above in the bone section. Left Foot: Diffuse soft tissue swelling. Medial bandaging inferred ulcer here. Gas like lucency compatible with ulcer on frontal view over 2nd metatarsal head inferred plantar forefoot an interval change. OTHER FINDINGS: Decreased plantar arch both feet. IMPRESSION: Interval osteomyelitis right foot distal 2nd metatarsal additional regional soft tissue changes compatible with the clinical history of ulcer and gangrene. Apparent interval increase conspicuity of a fracture nondisplaced but the probably intra-articular 3rd proximal phalanx overseas series [id number], image 6 less apparent on other views. May be an interval increase in conspicuity rather than interval change. Interval soft tissue changes in the left foot bordering the 2nd metatarsal head- as referenced above. No acute osteomyelitis in the left foot appreciated. Chronic findings as above left side. Other findings as above. Assessment & Plan (1) Abscess Status: Acute (2) Abscess and cellulitis Status: Acute (3) Bacteremia Status: Acute Priority: High (4) DM type 2, uncontrolled, with lower extremity ulcer Status: Acute Priority: Medium (5) Osteomyelitis Status: Acute Priority: High - Assessment and Plan (Free Text) Assessment: A/P- 43 year old male with multiple medical conditions including b/l plantar diabetic Ulcers and now has right foot cellulitis as well as OM of the right foot as well and GNR bacteremia. afebrile xray of the foor _ OM of right foot as per report blood cx- prelim GNR foot cx- pending previous admission cx multiple organisms as stated in report PLan- start patietn on IV meropenem for broad spectrum GNR coverage pending ID and sensitivity of the GNR in blood cx. also advise to start patient on IV daptomycin since he is allergic to vancomycin for garm positive and staph coverage based on his previous foot cx results. check CPK while on dapto. check TTE r/o vegetations . will need drainage of the dorsal right foot abscess and may need further further surgical intervention for removal of the necrotic bone as well. will d/w podiatry. all labs and imaging and chart notes reviewed. Thank you for allowing me to take part in the care of this patient.
[2018-10-09 10:54] LABS: HEMOGLOBIN 7.9 g/dL (12.0-18.0); MEAN CELL VOLUME 80.6 fl (80.0-94.0); MEAN CORPUSCULAR HEMOGLOBIN 27.4 pg (27.0-31.0); RBC 2.89 Mil/uL (4.40-5.90); RED CELL DISTRIBUTION WIDTH 15.8 % (11.5-14.5); WHITE BLOOD COUNT 5.7 K/uL (4.8-10.8)
[2018-10-09 12:12] LABS: IRON 43 ug/dL (49-181)
[2018-10-09 12:21] LABS: % IRON SATURATION 20 % (20-55); TOTAL IRON BINDING CAPACITY 216 ug/dL (250-450)
[2018-10-09] MEDS ORDERED: Insulin Regular 100 units/ml SC SCH (16:30)
--- NOTE | 2018-10-09 16:30 | CP.PCM.HP ---
History of Present Illness - History of Present Illness History of Present Illness: CC: R foot pain/ infection. 43 y/o M, with multiple chronic medical condition including: Osteomyelitis and Cellulites of LE, Peripheral edema, DM, HLD. Pt was c/o of B/L feet pain, R > L 2nd to new onset of infection, pain described as throbbing, constant, of severe intensity 8-10:10, associated to redness, swelling, ulceration, Pt on current Tx by Dean Of Education but with no improvement. Pt was referred on 10/04/18 to [facility] by Dr Wright at [facility] to be evaluated by new onset of R foot infection for possible I&D, skin graft. Worsening symptoms: Open wound R foot with some pus. edema b/l feet, R>L. As per PT, sensation of tingling, numbness on feet all the time, R foot ulceration for 8 yrs. Aggravated factor: Moving, standing/exercise. Pt denied: Fever, chills, n/v/d, abdominal pain, urinary symptoms, CP, Palpitations, SOB, sick contact, recent travel out of [facility]. Foot X-Ray: Osteomyelitis R distal foot 2nd metatarsal ,additional region soft tissue changes compatible with clinical Hx of ulcer and Gangrene. L foot soft tissue changes bordering the 2nd metatarsal head, no OM in the L foot appreciated. L foot 2ndand 3rd digit amputation. Present on Admission - Present on Admission Any Indicators Present on Admission: No Review of Systems - Constitutional Constitutional: Other (negative) - EENT Eyes: Requires Corrective Lenses Ears: Other (negtaive) Nose/Mouth/Throat: Other (negative) - Cardiovascular Cardiovascular: Other (negative) - Respiratory Respiratory: Other (negative) - Gastrointestinal Gastrointestinal: Other (negative) - Genitourinary Genitourinary: Other (negative) - Musculoskeletal Musculoskeletal: Other (Feet pain 2nd to osteomyelitis.) - Integumentary Integumentary: Erythema, Skin Ulcer, Swelling, Wounds - Neurological Neurological: Numbness (feet), Tingling (feet) - Psychiatric Psychiatric: Other (negative) - Endocrine Endocrine: Other (negative) - Hematologic/Lymphatic Hematologic: Other (negative) Past Patient History - Infectious Disease Hx of Infectious Diseases: None - Tetanus Immunizations Tetanus Immunization: Unknown - Past Medical History & Family History Past Medical History?: Yes Pertinent Family History: Unknown - Past Social History Smoking Status: Never Smoked Alcohol: None Drugs: Denies Home Situation {Lives}: With Family - CARDIAC Hx Cardiac Disorders: Yes Hx Atrial Fibrillation: No Hx Hypercholesterolemia: Yes Hx Peripheral Edema: Yes (right foot due to infection) - PULMONARY Hx Respiratory Disorders: No - NEUROLOGICAL Hx Neurological Disorder: No - HEENT Hx HEENT Problems: No - RENAL Hx Chronic Kidney Disease: No - ENDOCRINE/METABOLIC Hx Endocrine Disorders: Yes Hx Diabetes Mellitus Type 2: Yes - HEMATOLOGICAL/ONCOLOGICAL Hx Blood Disorders: No - INTEGUMENTARY Hx Dermatological Problems: Yes (ULCERS BOTH FEET) Hx Cellulitis: Yes (BOTH FEET) - MUSCULOSKELETAL/RHEUMATOLOGICAL Hx Musculoskeletal Disorders: No Hx Falls: No - GASTROINTESTINAL Hx Gastrointestinal Disorders: Yes Hx Gall Bladder Disease: Yes - GENITOURINARY/GYNECOLOGICAL Hx Genitourinary Disorders: No - PSYCHIATRIC Hx Psychophysiologic Disorder: No Hx Substance Use: No - SURGICAL HISTORY Hx Surgeries: Yes Hx Cholecystectomy: Yes - ANESTHESIA Hx Anesthesia: Yes Hx Anesthesia Reactions: No Hx Malignant Hyperthermia: No Meds Allergies/Adverse Reactions: Allergies Allergy/AdvReac Type Severity Reaction Status Date / Time vancomycin Allergy SWELLING Verified 10/08/18 18:58 Physical Exam - Constitutional Appears: Chronically Ill - Head Exam Head Exam: NORMAL INSPECTION - Eye Exam Eye Exam: PERRL - ENT Exam ENT Exam: Normal Exam - Neck Exam Neck exam: Positive for: Normal Inspection - Respiratory Exam Respiratory Exam: NORMAL BREATHING PATTERN - Cardiovascular Exam Cardiovascular Exam: REGULAR RHYTHM - GI/Abdominal Exam GI & Abdominal Exam: Normal Bowel Sounds, Soft - Extremities Exam Extremities exam: Positive for: pedal edema Additional comments: L plantar foot with open ulcer and no discharge. R plantar ulcer with open wound and yellow/bloody discharge, R dorsal foot with erythema, edema and small opening with purulent discharge. - Back Exam Back exam: NORMAL INSPECTION - Neurological Exam Neurological exam: Alert, Oriented x3 - Psychiatric Exam Psychiatric exam: Normal Mood - Skin Skin Exam: Warm Results - Vital Signs Recent Vital Signs: Last Vital Signs Temp 98 F 10/09/18 15:26 Pulse 62 10/09/18 15:26 Resp 20 10/09/18 15:26 BP 152/82 H 10/09/18 15:26 Pulse Ox 98 10/09/18 08:34 reviewed J.P. - Labs Result Diagrams: 10/15/18 12:15 10/15/18 12:15 Labs: Laboratory Results - last 24 hr 10/08/18 10/08/18 10/08/18 19:39 20:14 20:14 WBC 8.6 RBC 3.04 L Hgb 8.3 L D Hct 24.9 L MCV 81.7 D MCH 27.1 MCHC 33.2 RDW 15.8 H Plt Count 336 MPV 7.0 L Neut % (Auto) 75.1 H Lymph % (Auto) 17.0 L [place] % (Auto) 6.5 Eos % (Auto) 0.9 Baso % (Auto) 0.5 Neut # (Auto) 6.5 Lymph # (Auto) 1.5 [place] # (Auto) 0.6 Eos # (Auto) 0.1 Baso # (Auto) 0.0 ESR Cancelled Retic Count PT INR APTT Sodium 137 Potassium 4.0 Chloride 100 Carbon Dioxide 23 Anion Gap 18 BUN 15 Creatinine 0.8 Est GFR ( Amer) > 60 Est GFR (Non-Af Amer) > 60 POC Glucose (mg/dL) 149 H Random Glucose 155 H Hemoglobin A1c Lactic Acid Calcium 8.4 Iron TIBC % Saturation Ferritin Total Bilirubin 0.3 AST 25 ALT 22 Alkaline Phosphatase 102 Total Protein 8.6 H Albumin 3.9 Globulin 4.8 H Albumin/Globulin Ratio 0.8 L Triglycerides Cholesterol LDL Cholesterol Direct HDL Cholesterol Vitamin B12 Blood Type Blood Type Confirm Antibody Screen Crossmatch BBK History Checked 10/08/18 10/08/18 10/08/18 20:14 21:57 23:17 WBC RBC Hgb Hct MCV MCH MCHC RDW Plt Count MPV Neut % (Auto) Lymph % (Auto) [place] % (Auto) Eos % (Auto) Baso % (Auto) Neut # (Auto) Lymph # (Auto) [place] # (Auto) Eos # (Auto) Baso # (Auto) ESR > 120 H Retic Count PT INR APTT Sodium Potassium Chloride Carbon Dioxide Anion Gap BUN Creatinine Est GFR ( Amer) Est GFR (Non-Af Amer) POC Glucose (mg/dL) 124 H Random Glucose Hemoglobin A1c Lactic Acid 0.7 Calcium Iron TIBC % Saturation Ferritin Total Bilirubin AST ALT Alkaline Phosphatase Total Protein Albumin Globulin Albumin/Globulin Ratio Triglycerides Cholesterol LDL Cholesterol Direct HDL Cholesterol Vitamin B12 Blood Type Blood Type Confirm Antibody Screen Crossmatch BBK History Checked 10/09/18 10/09/18 10/09/18 05:45 05:45 05:45 WBC 6.0 RBC 2.92 L Hgb 7.9 L Hct 23.6 L MCV 81.0 MCH 27.1 MCHC 33.5 RDW 15.8 H Plt Count 298 MPV Neut % (Auto) Lymph % (Auto) [place] % (Auto) Eos % (Auto) Baso % (Auto) Neut # (Auto) Lymph # (Auto) [place] # (Auto) Eos # (Auto) Baso # (Auto) ESR Retic Count PT 13.8 H INR 1.2 APTT 32.5 Sodium 135 Potassium 4.0 Chloride 97 L Carbon Dioxide 24 Anion Gap 18 BUN 13 Creatinine 0.8 Est GFR ( Amer) > 60 Est GFR (Non-Af Amer) > 60 POC Glucose (mg/dL) Random Glucose 311 H Hemoglobin A1c Lactic Acid Calcium 8.5 Iron TIBC % Saturation Ferritin Total Bilirubin 0.4 AST 19 ALT 21 Alkaline Phosphatase 100 Total Protein 7.9 Albumin 3.5 Globulin 4.5 H Albumin/Globulin Ratio 0.8 L Triglycerides 146 Cholesterol 90 LDL Cholesterol Direct 42 HDL Cholesterol 19 L Vitamin B12 Blood Type Blood Type Confirm Antibody Screen Crossmatch BBK History Checked 10/09/18 10/09/18 10/09/18 05:45 05:45 05:53 WBC RBC Hgb Hct MCV MCH MCHC RDW Plt Count MPV Neut % (Auto) Lymph % (Auto) [place] % (Auto) Eos % (Auto) Baso % (Auto) Neut # (Auto) Lymph # (Auto) [place] # (Auto) Eos # (Auto) Baso # (Auto) ESR Retic Count PT INR APTT Sodium Potassium Chloride Carbon Dioxide Anion Gap BUN Creatinine Est GFR ( Amer) Est GFR (Non-Af Amer) POC Glucose (mg/dL) 265 H Random Glucose Hemoglobin A1c 8.2 H Lactic Acid Calcium Iron TIBC % Saturation Ferritin Total Bilirubin AST ALT Alkaline Phosphatase Total Protein Albumin Globulin Albumin/Globulin Ratio Triglycerides Cholesterol LDL Cholesterol Direct HDL Cholesterol Vitamin B12 Blood Type Blood Type Confirm O POSITIVE Antibody Screen Crossmatch BBK History Checked 10/09/18 10/09/18 10/09/18 10:30 10:30 10:30 WBC 5.7 RBC 2.89 L Hgb 7.9 L Hct 23.3 L MCV 80.6 MCH 27.4 MCHC 34.0 RDW 15.8 H Plt Count 297 MPV Neut % (Auto) Lymph % (Auto) [place] % (Auto) Eos % (Auto) Baso % (Auto) Neut # (Auto) Lymph # (Auto) [place] # (Auto) Eos # (Auto) Baso # (Auto) ESR Retic Count 2.3 H PT INR APTT Sodium Potassium Chloride Carbon Dioxide Anion Gap BUN Creatinine Est GFR ( Amer) Est GFR (Non-Af Amer) POC Glucose (mg/dL) Random Glucose Hemoglobin A1c Lactic Acid Calcium Iron 43 L TIBC 216 L % Saturation 20 Ferritin 193.0 Total Bilirubin AST ALT Alkaline Phosphatase Total Protein Albumin Globulin Albumin/Globulin Ratio Triglycerides Cholesterol LDL Cholesterol Direct HDL Cholesterol Vitamin B12 374 Blood Type Blood Type Confirm Antibody Screen Crossmatch BBK History Checked 10/09/18 10/09/18 10:30 11:04 WBC RBC Hgb Hct MCV MCH MCHC RDW Plt Count MPV Neut % (Auto) Lymph % (Auto) [place] % (Auto) Eos % (Auto) Baso % (Auto) Neut # (Auto) Lymph # (Auto) [place] # (Auto) Eos # (Auto) Baso # (Auto) ESR Retic Count PT INR APTT Sodium Potassium Chloride Carbon Dioxide Anion Gap BUN Creatinine Est GFR ( Amer) Est GFR (Non-Af Amer) POC Glucose (mg/dL) 321 H Random Glucose Hemoglobin A1c Lactic Acid Calcium Iron TIBC % Saturation Ferritin Total Bilirubin AST ALT Alkaline Phosphatase Total Protein Albumin Globulin Albumin/Globulin Ratio Triglycerides Cholesterol LDL Cholesterol Direct HDL Cholesterol Vitamin B12 Blood Type O POSITIVE Blood Type Confirm Antibody Screen Negative Crossmatch See Detail BBK History Checked No verified bt reviewed J.P. - Imaging and Cardiology Abdominal x-ray Status: Report reviewed by me (JVanesaP.) Assessment & Plan (1) Osteomyelitis of right foot Status: Acute Priority: High (2) Abscess and cellulitis Status: Acute (3) Anemia Status: Acute Priority: High (4) Hyperglycemia Status: Acute Priority: High (5) Diabetes mellitus Status: Chronic Priority: High (6) Diabetic neuropathy Status: Chronic Priority: Medium (7) Hypertension Status: Chronic Priority: Medium (8) Morbid obesity Assessment and Plan: BMI 40.6 Status: Chronic Priority: High (9) Dyslipidemia Status: Acute Priority: Low - Assessment and Plan (Free Text) Plan: F/U EKG, Echo, MRI Foot, continue with Daptomycin, Merren, Morphine, Neurontin, Levemir, Insulin, Cozaar and rest of Tx. ID consult and Dean Of Education consult appreciated, Cardiac and Endocrine consult. - Date & Time Date: 10/09/18 Time: 13:10
[2018-10-09] MEDS: Piperacillin/Tazobact 3.375 GM in Sodium Chloride 0.9% 100 ML IVPB SCH ×2 (17:34→18:47)
--- NOTE | 2018-10-09 17:47 | CARD ---
APPROVED REPORT Date of service: 10/09/2018 EKG Measurement Heart [id number] <Conclusion> Sinus bradycardia Otherwise normal ECG
[2018-10-09] MEDS: Morphine 4 MG/ML VIAL IVP PRN (22:22)
[2018-10-09] MEDS: Insulin Detemir 100 Units/ml Inj SC SCH (23:17)
[2018-10-10] MEDS: Meropenem 1 GM in Sodium Chloride 0.9% 100 ML IVPB SCH ×3 (00:10→18:23)
--- NOTE | 2018-10-10 03:48 | CON ---
DATE: 10/09/2018 ENDOCRINOLOGY CONSULTATION LOCATION: Room 656. HISTORY OF PRESENT ILLNESS: This is a 43-year-old male with known history of type 2 insulin-requiring diabetes, presenting here with right foot cellulitis and underlying osteomyelitis and is now being referred for diabetic evaluation because of persistent hyperglycemic accelerations as noted thereof. PAST MEDICAL HISTORY: History of type 2 insulin-requiring diabetes, on a basal and bolus insulin regimen with variable dosing as per the patient and no recent home glucose monitoring undertaken thereof; history of hypertension and dyslipidemia; history of diabetic polyneuropathy; history of multiple admissions for lower extremity neuropathic ulcerations and cellulitis with previous bouts of osteomyelitis as noted. History of peripheral arterial disease and vasculopathy with previous second and third toe amputations in the left foot and a toe amputation in the second toe of the right foot as noted. FAMILY HISTORY: Positive for diabetes and hypertension. SOCIAL HISTORY: The patient admits to using e-cigarettes or vaping but denies any other illicit drug use. REVIEW OF SYSTEMS: Admits to episodic bouts of dizziness and lightheadedness with occasional bifrontal headaches. His energy level has been suboptimal with increasing bouts of generalized body weakness and suboptimal energy level. No chest pains or palpitations. His oral intake has been variable with nausea, dyspepsia and vague upper abdominal pains. Also admits to lower extremity painful paresthesias. In the last week or so prior to admission, admits to sudden onset of painful swelling and edema in the right foot with an abscess and new ulceration in the dorsum of the right foot as noted. He was seen at the [facility] and advised admission thereof. PHYSICAL EXAMINATION: GENERAL: This is an obese male in no apparent distress. VITAL SIGNS: With a blood pressure of 154/100, pulse of 100 beats per minute and regular, temperature 99, respirations 20. Height is 6 feet 3 inches. Weight is 325 pounds. HEENT: Head is normocephalic. Eyes are anicteric with pink conjunctivae. Funduscopy not possible at this time. Ears, nose and throat otherwise normal. NECK: Supple. Thyroid gland is normal in size. No carotid bruits or cervical adenopathy. CARDIOPULMONARY: Some adynamic precordium. S1 and S2 are rapid and regular. LUNGS: Clear to auscultation. ABDOMEN: Obese, soft with positive bowel sounds. EXTREMITIES: Toe amputations in the left foot with nonhealing ulcerations in the plantar surface of the left foot. The right foot shows an ulceration in the dorsum of the right foot with purulent discharge and also nonhealing plantar ulcerations in the same foot. LABORATORY DATA: His chemistries showed an A1c of 8.2%. His latest chemistries showed a BUN of 13, sodium 135, potassium 4, chloride 97, CO2 of 24, glucose 311, and creatinine of 0.8. ASSESSMENT: This is a 43-year-old male with uncontrolled and decompensated type 2 insulin-requiring diabetes with marked hyperglycemic accelerations related to a subtherapeutic insulin regimen as given and noted. 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 PLAN OF MANAGEMENT: We will modify his current insulin regimen and switch him over to a more physiologic basal and bolus insulin drug combination as given. We will continue the Humalog given as 20 units t.i.d. before meals to start tomorrow morning as ordered. We will continue also the basal insulin with Levemir given as 50 units subcu at bedtime daily to start tonight. We will modify the coverage scale with Humalog insulin to obviate hypoglycemia and detailed orders have been given. Repeat serial chemistries will be obtained and supplement accordingly as needed. We will also initiate diabetic education and dietary instructions at the time of this admission. We will follow and advise accordingly. Stephanie Green MD
[2018-10-10 06:37] LABS: BASO % 0.5 % (0.0-2.0); EOS # 0.1 K/uL (0.0-0.7); EOS % 0.9 % (0.0-4.0); HEMOGLOBIN 9.3 g/dL (12.0-18.0); LYMPH # 1.6 K/uL (1.0-4.3); LYMPH % 18.8 % (20.0-40.0); MEAN CELL VOLUME 81.7 fl (80.0-94.0); MEAN CORPUSCULAR HEMOGLOBIN 27.4 pg (27.0-31.0); MEAN CORPUSCULAR HGB CONC 33.5 g/dL (33.0-37.0); MEAN PLATELET VOLUME 6.7 fl (7.2-11.7); MONO # 1.1 K/uL (0.0-0.8); MONO % 13.4 % (0.0-10.0); NEUT # 5.6 K/uL (1.8-7.0); NEUT % 66.4 % (50.0-75.0); RBC 3.39 Mil/uL (4.40-5.90); RED CELL DISTRIBUTION WIDTH 16.1 % (11.5-14.5); WHITE BLOOD COUNT 8.4 K/uL (4.8-10.8)
[2018-10-10 06:55] LABS: ALB/GLOB RATIO 0.8 (1.0-2.1); ALBUMIN 3.7 g/dL (3.5-5.0); ALT/SGPT 24 U/L (21-72); AST/SGOT 27 U/L (17-59); BLOOD UREA NITROGEN 13 mg/dl (9-20); CALCIUM 9.5 mg/dL (8.4-10.2); GFR NON-AFRICAN AMERICAN > 60
[2018-10-10] MEDS: Silver Sulfadiazine 1% Cream (20 gm) TOP SCH (10:08)
[2018-10-10] MEDS: Insulin Lispro (humaLOG) 100 Units/ml Inj SC SCH ×7 (10:08→22:00)
[2018-10-10] MEDS: Cholecalciferol 1,000 INTLU TAB PO SCH ×2 (10:08→11:52)
[2018-10-10] MEDS: Omega-3-Acid Ethyl Esters 1 GM Cap PO SCH ×3 (10:09→16:31)
--- NOTE | 2018-10-10 10:53 | CARD ---
APPROVED REPORT Date of service: 10/10/2018 EXAM: Two-dimensional and M-mode echocardiogram with Doppler and color Doppler. INDICATION R/O Vegetation 2D DIMENSIONS IVSd0.99 (0.7-1.1cm)LVDd5.05 (3.9-5.9cm) LVOT Diameter2.18 (1.8-2.4cm)PWd1.16 (0.7-1.1cm) IVSs1.97 (0.8-1.2cm)LA Mtjjwc44 (18-58mL) LVDs3.51 (2.5-4.0cm)FS (%) 30.5 % PWs1.61 (0.8-1.2cm) M-Mode DIMENSIONS Left Atrium (MM)4.80 (2.5-4.0cm)Aortic Root3.31 (2.2-3.7cm) Aortic Valve AoV Peak Krxyysia397.0cm/sAoV VTI27.3cmAO Peak GR.7mmHg LVOT Peak Mxderbxm500.8cm/sLVOT VTI22.24cmAO Mean GR.4mmHg THU (VMAX)1.12am1BHW (VTI)1.13cm2 Mitral Valve MV E Aliuvygt55.3cm/sMV E Peak Gr.20mmHgMV DECEL [id number] MV A Rzxgtjiv32.8cm/sMV QEB00nyX/A ratio1.3 MVA (PHT)3.49cm2 TDI Lateral E' Peak V9.13cm/sMedial E' Peak V8.56cm/sE/Lateral E'8.8 E/Medial E'9.4 Pulmonary Valve RVOT VTI19.9cm Tricuspid Valve TR Peak Fujvbeha908ht/sTR Peak Gr.0bfBsADZM96yhFb LEFT VENTRICLE The left ventricle is normal size. There is normal left ventricular wall thickness. The left ventricular function is normal. LVEF is 55-60%. There is normal LV segmental wall motion. Transmitral Doppler flow pattern is Grade II-pseudonormal filling dynamics. RIGHT VENTRICLE The right ventricle is normal size. There is normal right ventricular wall thickness. The right ventricular systolic function is normal. ATRIA The left atrium size is normal. The right atrium size is normal. AORTIC VALVE The aortic valve is normal in structure. No aortic regurgitation is present. There is no aortic valvular stenosis. MITRAL VALVE The mitral valve is normal in structure. There is no evidence of mitral valve prolapse. There is no mitral valve stenosis. Mitral regurgitation is mild. TRICUSPID VALVE The tricuspid valve is normal in structure. There is no tricuspid valve regurgitation noted. PULMONIC VALVE The pulmonary valve is normal in structure. There is no pulmonic valvular regurgitation. GREAT VESSELS The aortic root is normal in size. The IVC is normal in size and collapses >50% with inspiration. PERICARDIAL EFFUSION The pericardium appears normal. <Conclusion> The left ventricle is normal size. There is normal left ventricular wall thickness. There is normal LV segmental wall motion. The left ventricular function is normal. LVEF is 55-60%. Transmitral Doppler flow pattern is Grade II-pseudonormal filling dynamics.
--- NOTE | 2018-10-10 11:00 | CP.PCM.CON ---
History of Present Illness - History of Present Illness History of Present Illness: This 43-year-old man was hospitalized with intractable pain, ulceration and discharge from his right foot. The patient has a long history of recurring ulcers over his feet going back almost 10 years. He is a long-standing hypertensive and diabetic with a history of Charcot's foot. There is no prior history of effort related chest pain, myocardial infarction or congestive cardiac failure. This consultation was requested to evaluate the patient prior to his foot surgery, the patient has osteomyelitis. Physical examination shows an overweight man who appears older than his stated age. He is alert awake and coherent. Afebrile with a pulse rate of 60 bpm regular and a blood pressure of 140/74 mmHg. His jugular venous pressure was not elevated and there was no pallor or cyanosis. There were ulcers over both feet. There were no carotid bruits. The apex was not palpable. The first and second heart sounds were normal. There was no murmur or gallop. There were no rales. He is electrocardiogram showed sinus rhythm with a normal EKG pattern with no evidence of old myocardial infarct. Review of his echocardiogram show preserved left ventricular systolic function with a depressed left ventricular diastolic compliance. No significant valve abnormalities were detected. His lab data was noted. Impression: Nonhealing ulcers both lower extremities. Presence of osteomyelitis involving right foot. Diabetes mellitus, hypertension. The patient is stable from cardiovascular point of view to undergo surgery on his right foot. Past Patient History - Infectious Disease Hx of Infectious Diseases: None - Tetanus Immunizations Tetanus Immunization: Unknown - Past Medical History & Family History Past Medical History?: Yes - Past Social History Smoking Status: Never Smoked Alcohol: None Drugs: Denies Home Situation {Lives}: With Family - CARDIAC Hx Cardiac Disorders: Yes Hx Atrial Fibrillation: No Hx Hypercholesterolemia: Yes Hx Peripheral Edema: Yes (right foot due to infection) - PULMONARY Hx Respiratory Disorders: No - NEUROLOGICAL Hx Neurological Disorder: No - HEENT Hx HEENT Problems: No - RENAL Hx Chronic Kidney Disease: No - ENDOCRINE/METABOLIC Hx Endocrine Disorders: Yes Hx Diabetes Mellitus Type 2: Yes - HEMATOLOGICAL/ONCOLOGICAL Hx Blood Disorders: No - INTEGUMENTARY Hx Dermatological Problems: Yes (ULCERS BOTH FEET) Hx Cellulitis: Yes (BOTH FEET) - MUSCULOSKELETAL/RHEUMATOLOGICAL Hx Musculoskeletal Disorders: No Hx Falls: No - GASTROINTESTINAL Hx Gastrointestinal Disorders: Yes Hx Gall Bladder Disease: Yes - GENITOURINARY/GYNECOLOGICAL Hx Genitourinary Disorders: No - PSYCHIATRIC Hx Psychophysiologic Disorder: No Hx Substance Use: No - SURGICAL HISTORY Hx Surgeries: Yes Hx Cholecystectomy: Yes - ANESTHESIA Hx Anesthesia: Yes Hx Anesthesia Reactions: No Hx Malignant Hyperthermia: No Meds Allergies/Adverse Reactions: Allergies Allergy/AdvReac Type Severity Reaction Status Date / Time vancomycin Allergy SWELLING Verified 10/08/18 18:58 - Medications Medications: Current Medications Atorvastatin Calcium (Lipitor) 20 mg PO HS [facility] Last Admin: 10/09/18 23:13 Dose: 20 mg Cholecalciferol (Vitamin D) 1,000 intlu PO DAILY [facility] Last Admin: 10/10/18 10:08 Dose: Not Given Gabapentin (Neurontin) 300 mg PO BID [facility] Last Admin: 10/10/18 10:09 Dose: Not Given Meropenem 1 gm/ Sodium (Chloride) 100 mls @ 100 mls/hr IVPB Q8 [facility]; Protocol Last Admin: 10/10/18 00:10 Dose: 100 mls/hr Daptomycin 580 mg/ Sodium (Chloride) 100 mls @ 100 mls/hr IV Q24H [facility]; Protocol Stop: 10/14/18 19:01 Last Admin: 10/09/18 21:32 Dose: 100 mls/hr Insulin Detemir (Levemir) 50 units SC HS [facility] Last Admin: 10/09/18 23:17 Dose: 50 u Insulin Human Lispro (Humalog) 20 units SC AC [facility] Last Admin: 10/10/18 10:09 Dose: Not Given Insulin Human Lispro (Humalog) 0 units SC ACHS [facility] Last Admin: 10/10/18 10:08 Dose: Not Given Losartan Potassium (Cozaar) 100 mg PO HS [facility] Last Admin: 10/09/18 23:13 Dose: 100 mg Morphine Sulfate (Morphine) 6 mg IVP Q6 PRN PRN Reason: Pain, severe (8-10) Last Admin: 10/09/18 22:22 Dose: 6 mg [id number] Ethyl Esters (Lovaza) 2 gm PO BID [facility] Last Admin: 10/10/18 10:09 Dose: Not Given Silver Sulfadiazine (Silvadene 1% 20 Gm) 1 ea TOP DAILY [facility] Last Admin: 10/10/18 10:08 Dose: Not Given Tramadol HCl (Ultram) 50 mg PO Q6 PRN PRN Reason: Pain, moderate (4-7) Results - Vital Signs Recent Vital Signs: Last Vital Signs Temp 98 F 10/10/18 08:11 Pulse 67 10/10/18 08:11 Resp 20 10/10/18 08:11 BP 116/72 10/10/18 08:11 Pulse Ox 96 10/10/18 08:11 - Labs Result Diagrams: 10/10/18 06:10 10/10/18 06:10 Labs: Laboratory Results - last 24 hr 10/09/18 10/09/18 10/09/18 05:45 05:45 05:45 WBC RBC Hgb Hct MCV MCH MCHC RDW Plt Count MPV Neut % (Auto) Lymph % (Auto) Mcpherson % (Auto) Eos % (Auto) Baso % (Auto) Neut # (Auto) Lymph # (Auto) Mcpherson # (Auto) Eos # (Auto) Baso # (Auto) Sodium Potassium Chloride Carbon Dioxide Anion Gap BUN Creatinine Est GFR ( Amer) Est GFR (Non-Af Amer) POC Glucose (mg/dL) Random Glucose Hemoglobin A1c 8.2 H Calcium Magnesium Iron TIBC % Saturation Ferritin Total Bilirubin AST ALT Alkaline Phosphatase Total Creatine Kinase C-Reactive Protein 83.00 H Total Protein Albumin Globulin Albumin/Globulin Ratio Vitamin B12 Thyroxine (T4) TSH 3rd Generation Blood Type Blood Type Confirm O POSITIVE Antibody Screen Crossmatch BBK History Checked 10/09/18 10/09/18 10/09/18 10:30 10:30 10:30 WBC RBC Hgb Hct MCV MCH MCHC RDW Plt Count MPV Neut % (Auto) Lymph % (Auto) Mcpherson % (Auto) Eos % (Auto) Baso % (Auto) Neut # (Auto) Lymph # (Auto) Mcpherson # (Auto) Eos # (Auto) Baso # (Auto) Sodium Potassium Chloride Carbon Dioxide Anion Gap BUN Creatinine Est GFR ( Amer) Est GFR (Non-Af Amer) POC Glucose (mg/dL) Random Glucose Hemoglobin A1c Calcium Magnesium Iron 43 L TIBC 216 L % Saturation 20 Ferritin 193.0 Total Bilirubin AST ALT Alkaline Phosphatase Total Creatine Kinase C-Reactive Protein Total Protein Albumin Globulin Albumin/Globulin Ratio Vitamin B12 374 Thyroxine (T4) TSH 3rd Generation Blood Type O POSITIVE Blood Type Confirm Antibody Screen Negative Crossmatch See Detail BBK History Checked No verified bt 10/09/18 10/09/18 10/09/18 11:04 16:30 20:30 WBC RBC Hgb Hct MCV MCH MCHC RDW Plt Count MPV Neut % (Auto) Lymph % (Auto) Mcpherson % (Auto) Eos % (Auto) Baso % (Auto) Neut # (Auto) Lymph # (Auto) Mcpherson # (Auto) Eos # (Auto) Baso # (Auto) Sodium Potassium Chloride Carbon Dioxide Anion Gap BUN Creatinine Est GFR ( Amer) Est GFR (Non-Af Amer) POC Glucose (mg/dL) 321 H 211 H Random Glucose Hemoglobin A1c Calcium Magnesium Iron TIBC % Saturation Ferritin Total Bilirubin AST ALT Alkaline Phosphatase Total Creatine Kinase 52 L C-Reactive Protein Total Protein Albumin Globulin Albumin/Globulin Ratio Vitamin B12 Thyroxine (T4) TSH 3rd Generation Blood Type Blood Type Confirm Antibody Screen Crossmatch BBK History Checked 10/09/18 10/10/18 10/10/18 22:26 05:28 06:10 WBC RBC Hgb Hct MCV MCH MCHC RDW Plt Count MPV Neut % (Auto) Lymph % (Auto) Mcpherson % (Auto) Eos % (Auto) Baso % (Auto) Neut # (Auto) Lymph # (Auto) Mcpherson # (Auto) Eos # (Auto) Baso # (Auto) Sodium 136 Potassium 4.8 Chloride 98 Carbon Dioxide 25 Anion Gap 18 BUN 13 Creatinine 0.9 Est GFR ( Amer) > 60 Est GFR (Non-Af Amer) > 60 POC Glucose (mg/dL) 259 H 164 H Random Glucose 191 H Hemoglobin A1c Calcium 9.5 Magnesium 1.9 Iron TIBC % Saturation Ferritin Total Bilirubin 0.6 AST 27 ALT 24 Alkaline Phosphatase 101 Total Creatine Kinase C-Reactive Protein Total Protein 8.5 H Albumin 3.7 Globulin 4.8 H Albumin/Globulin Ratio 0.8 L Vitamin B12 Thyroxine (T4) 4.61 L TSH 3rd Generation 0.51 Blood Type Blood Type Confirm Antibody Screen Crossmatch BBK History Checked 10/10/18 06:10 WBC 8.4 RBC 3.39 L Hgb 9.3 L Hct 27.7 L MCV 81.7 MCH 27.4 MCHC 33.5 RDW 16.1 H Plt Count 295 MPV 6.7 L Neut % (Auto) 66.4 Lymph % (Auto) 18.8 L Mcpherson % (Auto) 13.4 H Eos % (Auto) 0.9 Baso % (Auto) 0.5 Neut # (Auto) 5.6 Lymph # (Auto) 1.6 Mcpherson # (Auto) 1.1 H Eos # (Auto) 0.1 Baso # (Auto) 0.0 Sodium Potassium Chloride Carbon Dioxide Anion Gap BUN Creatinine Est GFR ( Amer) Est GFR (Non-Af Amer) POC Glucose (mg/dL) Random Glucose Hemoglobin A1c Calcium Magnesium Iron TIBC % Saturation Ferritin Total Bilirubin AST ALT Alkaline Phosphatase Total Creatine Kinase C-Reactive Protein Total Protein Albumin Globulin Albumin/Globulin Ratio Vitamin B12 Thyroxine (T4) TSH 3rd Generation Blood Type Blood Type Confirm Antibody Screen Crossmatch BBK History Checked
--- NOTE | 2018-10-10 11:37 | CP.PCM.PN ---
Subjective - Date & Time of Evaluation Date of Evaluation: 10/10/18 Time of Evaluation: 11:37 - Subjective Subjective: ID note- Patient seen and examined today. he denies any fever or chills. c/o pain in the right foot. Objective - Vital Signs/Intake and Output Vital Signs (last 24 hours): Temp Pulse Resp BP Pulse Ox 98 F 67 20 116/72 96 10/10/18 08:11 10/10/18 08:11 10/10/18 08:11 10/10/18 08:11 10/10/18 08:11 Intake and Output: 10/10/18 10/10/18 06:59 18:59 Intake Total 325 Balance 325 - Medications Medications: Current Medications Atorvastatin Calcium (Lipitor) 20 mg PO HS [facility] Last Admin: 10/09/18 23:13 Dose: 20 mg Cholecalciferol (Vitamin D) 1,000 intlu PO DAILY [facility] Last Admin: 10/10/18 10:08 Dose: Not Given Gabapentin (Neurontin) 300 mg PO BID [facility] Last Admin: 10/10/18 10:09 Dose: Not Given Meropenem 1 gm/ Sodium (Chloride) 100 mls @ 100 mls/hr IVPB Q8 [facility]; Protocol Last Admin: 10/10/18 00:10 Dose: 100 mls/hr Daptomycin 580 mg/ Sodium (Chloride) 100 mls @ 100 mls/hr IV Q24H [facility]; Protocol Stop: 10/14/18 19:01 Last Admin: 10/09/18 21:32 Dose: 100 mls/hr Insulin Detemir (Levemir) 50 units SC HS [facility] Last Admin: 10/09/18 23:17 Dose: 50 u Insulin Human Lispro (Humalog) 20 units SC AC [facility] Last Admin: 10/10/18 10:09 Dose: Not Given Insulin Human Lispro (Humalog) 0 units SC ACHS [facility] Last Admin: 10/10/18 10:08 Dose: Not Given Losartan Potassium (Cozaar) 100 mg PO HS [facility] Last Admin: 10/09/18 23:13 Dose: 100 mg Morphine Sulfate (Morphine) 6 mg IVP Q6 PRN PRN Reason: Pain, severe (8-10) Last Admin: 10/09/18 22:22 Dose: 6 mg Ofcum-0-Ycrn Ethyl Esters (Lovaza) 2 gm PO BID [facility] Last Admin: 10/10/18 10:09 Dose: Not Given Silver Sulfadiazine (Silvadene 1% 20 Gm) 1 ea TOP DAILY [facility] Last Admin: 10/10/18 10:08 Dose: Not Given Tramadol HCl (Ultram) 50 mg PO Q6 PRN PRN Reason: Pain, moderate (4-7) - Labs Labs: - Additional Findings Additional findings: - Constitutional Appears: No Acute Distress - Head Exam Head Exam: ATRAUMATIC - Eye Exam Eye Exam: EOMI, PERRL - ENT Exam ENT Exam: Normal Oropharynx - Neck Exam Neck exam: Positive for: Full Rom - Respiratory Exam Respiratory Exam: Clear to Auscultation Bilateral, NORMAL BREATHING PATTERN - Cardiovascular Exam Cardiovascular Exam: RRR, +S1, +S2 - GI/Abdominal Exam GI & Abdominal Exam: Normal Bowel Sounds, Soft Additional comments: NT, ND - Extremities Exam Additional comments: 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5 Lymph # (Auto) 1.5 [place] # (Auto) 0.6 Eos # (Auto) 0.1 Baso # (Auto) 0.0 ESR Cancelled Retic Count PT INR APTT Sodium 137 Potassium 4.0 Chloride 100 Carbon Dioxide 23 Anion Gap 18 BUN 15 Creatinine 0.8 Est GFR ( Amer) > 60 Est GFR (Non-Af Amer) > 60 POC Glucose (mg/dL) 149 H Random Glucose 155 H Hemoglobin A1c Lactic Acid Calcium 8.4 Magnesium Iron TIBC % Saturation Ferritin Total Bilirubin 0.3 AST 25 ALT 22 Alkaline Phosphatase 102 Total Creatine Kinase C-Reactive Protein Total Protein 8.6 H Albumin 3.9 Globulin 4.8 H Albumin/Globulin Ratio 0.8 L Triglycerides Cholesterol LDL Cholesterol Direct HDL Cholesterol Vitamin B12 Thyroxine (T4) TSH 3rd Generation Blood Type Blood Type Confirm Antibody Screen Crossmatch BBK History Checked 10/08/18 10/08/18 10/08/18 20:14 21:57 23:17 WBC RBC Hgb Hct MCV MCH MCHC RDW Plt Count MPV Neut % (Auto) Lymph % (Auto) [place] % (Auto) Eos % (Auto) Baso % (Auto) Neut # (Auto) Lymph # (Auto) [place] # (Auto) Eos # (Auto) Baso # (Auto) ESR > 120 H Retic Count PT INR APTT Sodium Potassium Chloride Carbon Dioxide Anion Gap BUN Creatinine Est GFR ( Amer) Est GFR (Non-Af Amer) POC Glucose (mg/dL) 124 H Random Glucose Hemoglobin A1c Lactic Acid 0.7 Calcium Magnesium Iron TIBC % Saturation Ferritin Total Bilirubin AST ALT Alkaline Phosphatase Total Creatine Kinase C-Reactive Protein Total Protein Albumin Globulin Albumin/Globulin Ratio Triglycerides Cholesterol LDL Cholesterol Direct HDL Cholesterol Vitamin B12 Thyroxine (T4) TSH 3rd Generation Blood Type Blood Type Confirm Antibody Screen Crossmatch BBK History Checked 10/09/18 10/09/18 10/09/18 05:45 05:45 05:45 WBC 6.0 RBC 2.92 L Hgb 7.9 L Hct 23.6 L MCV 81.0 MCH 27.1 MCHC 33.5 RDW 15.8 H Plt Count 298 MPV Neut % (Auto) Lymph % (Auto) [place] % (Auto) Eos % (Auto) Baso % (Auto) Neut # (Auto) Lymph # (Auto) [place] # (Auto) Eos # (Auto) Baso # (Auto) ESR Retic Count PT 13.8 H INR 1.2 APTT 32.5 Sodium 135 Potassium 4.0 Chloride 97 L Carbon Dioxide 24 Anion Gap 18 BUN 13 Creatinine 0.8 Est GFR ( Amer) > 60 Est GFR (Non-Af Amer) > 60 POC Glucose (mg/dL) Random Glucose 311 H Hemoglobin A1c Lactic Acid Calcium 8.5 Magnesium Iron TIBC % Saturation Ferritin Total Bilirubin 0.4 AST 19 ALT 21 Alkaline Phosphatase 100 Total Creatine Kinase C-Reactive Protein Total Protein 7.9 Albumin 3.5 Globulin 4.5 H Albumin/Globulin Ratio 0.8 L Triglycerides 146 Cholesterol 90 LDL Cholesterol Direct 42 HDL Cholesterol 19 L Vitamin B12 Thyroxine (T4) TSH 3rd Generation Blood Type Blood Type Confirm Antibody Screen Crossmatch BBK History Checked 10/09/18 10/09/18 10/09/18 05:45 05:45 05:45 WBC RBC Hgb Hct MCV MCH MCHC RDW Plt Count MPV Neut % (Auto) Lymph % (Auto) [place] % (Auto) Eos % (Auto) Baso % (Auto) Neut # (Auto) Lymph # (Auto) [place] # (Auto) Eos # (Auto) Baso # (Auto) ESR Retic Count PT INR APTT Sodium Potassium Chloride Carbon Dioxide Anion Gap BUN Creatinine Est GFR ( Amer) Est GFR (Non-Af Amer) POC Glucose (mg/dL) Random Glucose Hemoglobin A1c 8.2 H Lactic Acid Calcium Magnesium Iron TIBC % Saturation Ferritin Total Bilirubin AST ALT Alkaline Phosphatase Total Creatine Kinase C-Reactive Protein 83.00 H Total Protein Albumin Globulin Albumin/Globulin Ratio Triglycerides Cholesterol LDL Cholesterol Direct HDL Cholesterol Vitamin B12 Thyroxine (T4) TSH 3rd Generation Blood Type Blood Type Confirm O POSITIVE Antibody Screen Crossmatch BBK History Checked 10/09/18 10/09/18 10/09/18 05:53 10:30 10:30 WBC 5.7 RBC 2.89 L Hgb 7.9 L Hct 23.3 L MCV 80.6 MCH 27.4 MCHC 34.0 RDW 15.8 H Plt Count 297 MPV Neut % (Auto) Lymph % (Auto) [place] % (Auto) Eos % (Auto) Baso % (Auto) Neut # (Auto) Lymph # (Auto) [place] # (Auto) Eos # (Auto) Baso # (Auto) ESR Retic Count 2.3 H PT INR APTT Sodium Potassium Chloride Carbon Dioxide Anion Gap BUN Creatinine Est GFR ( Amer) Est GFR (Non-Af Amer) POC Glucose (mg/dL) 265 H Random Glucose Hemoglobin A1c Lactic Acid Calcium Magnesium Iron 43 L TIBC 216 L % Saturation 20 Ferritin Total Bilirubin AST ALT Alkaline Phosphatase Total Creatine Kinase C-Reactive Protein Total Protein Albumin Globulin Albumin/Globulin Ratio Triglycerides Cholesterol LDL Cholesterol Direct HDL Cholesterol Vitamin B12 Thyroxine (T4) TSH 3rd Generation Blood Type Blood Type Confirm Antibody Screen Crossmatch BBK History Checked 10/09/18 10/09/18 10/09/18 10:30 10:30 11:04 WBC RBC Hgb Hct MCV MCH MCHC RDW Plt Count MPV Neut % (Auto) Lymph % (Auto) [place] % (Auto) Eos % (Auto) Baso % (Auto) Neut # (Auto) Lymph # (Auto) [place] # (Auto) Eos # (Auto) Baso # (Auto) ESR Retic Count PT INR APTT Sodium Potassium Chloride Carbon Dioxide Anion Gap BUN Creatinine Est GFR ( Amer) Est GFR (Non-Af Amer) POC Glucose (mg/dL) 321 H Random Glucose Hemoglobin A1c Lactic Acid Calcium Magnesium Iron TIBC % Saturation Ferritin 193.0 Total Bilirubin AST ALT Alkaline Phosphatase Total Creatine Kinase C-Reactive Protein Total Protein Albumin Globulin Albumin/Globulin Ratio Triglycerides Cholesterol LDL Cholesterol Direct HDL Cholesterol Vitamin B12 374 Thyroxine (T4) TSH 3rd Generation Blood Type O POSITIVE Blood Type Confirm Antibody Screen Negative Crossmatch See Detail BBK History Checked No verified bt 10/09/18 10/09/18 10/09/18 16:30 20:30 22:26 WBC RBC Hgb Hct MCV MCH MCHC RDW Plt Count MPV Neut % (Auto) Lymph % (Auto) [place] % (Auto) Eos % (Auto) Baso % (Auto) Neut # (Auto) Lymph # (Auto) [place] # (Auto) Eos # (Auto) Baso # (Auto) ESR Retic Count PT INR APTT Sodium Potassium Chloride Carbon Dioxide Anion Gap BUN Creatinine Est GFR ( Amer) Est GFR (Non-Af Amer) POC Glucose (mg/dL) 211 H 259 H Random Glucose Hemoglobin A1c Lactic Acid Calcium Magnesium Iron TIBC % Saturation Ferritin Total Bilirubin AST ALT Alkaline Phosphatase Total Creatine Kinase 52 L C-Reactive Protein Total Protein Albumin Globulin Albumin/Globulin Ratio Triglycerides Cholesterol LDL Cholesterol Direct HDL Cholesterol Vitamin B12 Thyroxine (T4) TSH 3rd Generation Blood Type Blood Type Confirm Antibody Screen Crossmatch BBK History Checked 10/10/18 10/10/18 10/10/18 05:28 06:10 06:10 WBC 8.4 RBC 3.39 L Hgb 9.3 L Hct 27.7 L MCV 81.7 MCH 27.4 MCHC 33.5 RDW 16.1 H Plt Count 295 MPV 6.7 L Neut % (Auto) 66.4 Lymph % (Auto) 18.8 L [place] % (Auto) 13.4 H Eos % (Auto) 0.9 Baso % (Auto) 0.5 Neut # (Auto) 5.6 Lymph # (Auto) 1.6 [place] # (Auto) 1.1 H Eos # (Auto) 0.1 Baso # (Auto) 0.0 ESR Retic Count PT INR APTT Sodium 136 Potassium 4.8 Chloride 98 Carbon Dioxide 25 Anion Gap 18 BUN 13 Creatinine 0.9 Est GFR ( Amer) > 60 Est GFR (Non-Af Amer) > 60 POC Glucose (mg/dL) 164 H Random Glucose 191 H Hemoglobin A1c Lactic Acid Calcium 9.5 Magnesium 1.9 Iron TIBC % Saturation Ferritin Total Bilirubin 0.6 AST 27 ALT 24 Alkaline Phosphatase 101 Total Creatine Kinase C-Reactive Protein Total Protein 8.5 H Albumin 3.7 Globulin 4.8 H Albumin/Globulin Ratio 0.8 L Triglycerides Cholesterol LDL Cholesterol Direct HDL Cholesterol Vitamin B12 Thyroxine (T4) 4.61 L TSH 3rd Generation 0.51 Blood Type Blood Type Confirm Antibody Screen Crossmatch BBK History Checked 10/10/18 11:59 WBC RBC Hgb Hct MCV MCH MCHC RDW Plt Count MPV Neut % (Auto) Lymph % (Auto) [place] % (Auto) Eos % (Auto) Baso % (Auto) Neut # (Auto) Lymph # (Auto) [place] # (Auto) Eos # (Auto) Baso # (Auto) ESR Retic Count PT INR APTT Sodium Potassium Chloride Carbon Dioxide Anion Gap BUN Creatinine Est GFR ( Amer) Est GFR (Non-Af Amer) POC Glucose (mg/dL) 222 H Random Glucose Hemoglobin A1c Lactic Acid Calcium Magnesium Iron TIBC % Saturation Ferritin Total Bilirubin AST ALT Alkaline Phosphatase Total Creatine Kinase C-Reactive Protein Total Protein Albumin Globulin Albumin/Globulin Ratio Triglycerides Cholesterol LDL Cholesterol Direct HDL Cholesterol Vitamin B12 Thyroxine (T4) TSH 3rd Generation Blood Type Blood Type Confirm Antibody Screen Crossmatch BBK History Checked Microbiology 10/08/18 18:00 Foot - Right Gram Stain - Final 10/08/18 18:00 Foot - Right Wound Culture - Preliminary Gram Negative Edson Gram Positive Cocci 10/08/18 18:00 Foot - Left Gram Stain - Final 10/08/18 18:00 Foot - Left Wound Culture - Preliminary Gram Negative Edson Gram Negative Edson#2 10/08/18 19:50 Blood Blood Culture - Preliminary Gram Negative Edson 10/08/18 19:50 Blood Gram Stain - Final 10/08/18 20:06 Blood Blood Culture - Preliminary NO GROWTH AFTER 24 HOURS Assessment and Plan (1) Abscess Status: Acute (2) Abscess and cellulitis Status: Acute (3) Bacteremia Status: Acute (4) DM type 2, uncontrolled, with lower extremity ulcer Status: Acute (5) Osteomyelitis Status: Acute - Assessment and Plan (Free Text) Assessment: A/P- 43 year old male with multiple medical conditions including b/l plantar diabetic Ulcers and now has right foot cellulitis as well as OM of the right foot as well and GNR bacteremia. afebrile blood cx- GNR x 1 xray of the foor _ OM of right foot as per report blood cx- prelim GNR x 3 foot cx- pending previous admission cx multiple organisms as stated in report TTE- no mention of any vegetations on report. PLan- Continue patietn on IV meropenem for broad spectrum GNR coverage pending ID and sensitivity of the GNR in blood cx.day #2 also continue patient on IV daptomycin since he is allergic to vancomycin for gram positive and staph coverage based on his previous foot cx results. check CPK while on dapto. will need drainage of the dorsal right foot abscess and may need further further surgical intervention for removal of the necrotic bone as well. Await foot MRI report as well.
[2018-10-10] MEDS: Morphine 4 MG/ML VIAL IVP PRN ×2 (12:11→21:57)
--- NOTE | 2018-10-10 13:32 | PQF ---
PROVIDER RESPONSE TEXT: Provider was unable to determine a response for this query. REVIEWER QUERY TEXT: Clarification of Clinical Diagnostic Findings Please clarify if you are in agreement with the BMI: 40.6 as listed in the EMR OR: Disagree OR: Other explanation of clinical finding Listed in the EMR: 6ft 3in 325 lb H and P includes: the dx.: Morbid Obesity The patient's Clinical Indicators include: --- Query created by: Alma Hearn 10/10/2018 10:34 AM Electronically signed by: Elvia Key 10/10/2018 1:28 PM
--- NOTE | 2018-10-10 16:08 | MRI ---
MRI right foot History: Wound. Evaluate for osteomyelitis. Comparison. TECHNIQUE: Multi-echo multiplanar sequences were performed through the right foot without the use of intravenous contrast. Findings: Prior resection of the 1st metatarsal bone to the base as well as a portion of the 1st proximal phalanx. Prior resection the 2nd digit to the level head of the 2nd metatarsal bone. Large heterogeneous collection demonstrating increased STIR signal and decreased T1 signal at the level of the resection margin of the 2nd metatarsal bone measuring 3.5 x 1.8 x 3.3 centimeters suggestive for an abscess collection. Prominent signal abnormality within the adjacent 2nd metatarsal bone with decreased T1 signal and increased STIR signal consistent with an acute osteomyelitis. Adjacent signal changes seen within the base of the 3rd proximal phalanx as well as the 3rd metatarsal head with patchy decreased T1 signal and increased STIR signal suggestive for an acute developing osteomyelitis. In addition, there is some adjacent reactive edema seen within the remnant base of the 1st metatarsal bone as well as at the lateral base of the 1st proximal phalanx also demonstrating some increased STIR signal which may represent some developing acute osteomyelitic changes. Nonspecific scattered patchy reactive edema seen within the base of the 3rd metatarsal bone, middle cuneiform, lateral cuneiform, and lateral aspect of the cuboid bone. These changes may represent the sequelae of acute inflammatory and or infectious changes versus sequelae of neuropathic change versus additional etiology. Clinical correlation. Some fraying and increased signal seen at the volar aspect of the Lisfranc ligament which may represent sprain and or partial tearing. Clinical correlation. 1.2 centimeter subchondral cyst formation seen within the lateral talus. Reticulation and edema within the circumferential subcutaneous soft tissues. Impression: 1. Large heterogeneous collection demonstrating increased STIR signal and decreased T1 signal at the level of the resection margin of the 2nd metatarsal bone measuring 3.5 x 1.8 x 3.3 centimeters suggestive for an abscess collection. Prominent signal abnormality within the adjacent 2nd metatarsal bone with decreased T1 signal and increased STIR signal consistent with an acute osteomyelitis. 2. Adjacent signal changes seen within the base of the 3rd proximal phalanx as well as the 3rd metatarsal head with patchy decreased T1 signal and increased STIR signal suggestive for an acute developing osteomyelitis. 3. In addition, there is some adjacent reactive edema seen within the remnant base of the 1st metatarsal bone as well as at the lateral base of the 1st proximal phalanx also demonstrating some increased STIR signal which may represent some developing acute osteomyelitic changes. 4. Nonspecific scattered patchy reactive edema seen within the base of the 3rd metatarsal bone, middle cuneiform, lateral cuneiform, and lateral aspect of the cuboid bone. These changes may represent the sequelae of acute inflammatory and or infectious changes versus sequelae of neuropathic change versus additional etiology. Clinical correlation. 5. Some fraying and increased signal seen at the volar aspect of the Lisfranc ligament which may represent sprain and or partial tearing. Clinical correlation. 6. 1.2 centimeter subchondral cyst formation seen within the lateral talus. 7. Reticulation and edema within the circumferential subcutaneous soft tissues.
--- NOTE | 2018-10-10 17:12 | MRI ---
MRI left foot History: Left foot wound. Comparison: MRI dated 03/20/2017 TECHNIQUE: Multi-echo multiplanar sequences were performed through the left foot without the use of intravenous contrast. Findings: Resection of the 2nd digit to the metatarsal head. Resection of the 3rd digit to the metatarsal head. Resection of the head of the 1st proximal phalanx. Moderate hallux valgus deformity. Plantar calcaneal spurring. Degenerative changes noted at the dorsal aspect of the midfoot. Patchy signal abnormality seen within the 1st distal phalanx and remnant 1st proximal phalanx demonstrating patchy decreased T1 signal and increased STIR signal which may represent underlying developing acute infectious changes such as developing acute osteomyelitis. Clinical correlation. Prominent signal abnormality seen within the head of the 2nd metatarsal bone demonstrating decreased T1 signal and increased STIR signal concerning for an acute osteomyelitis. Prominent soft tissue ulceration at the volar base of the 2nd metatarsal head. Some minimal nonspecific patchy reactive edema at the remnant 3rd metatarsal head. Degenerative changes in the midfoot with productive change and bony spurring. Plantar calcaneal spurring. On the long-axis STIR sequences, there is some nonspecific reactive edema at the 4th distal phalanx. Some fraying and increased signal seen at the volar aspect of the Lisfranc ligament which may represent a sprain and or partial tear. Some nonspecific reactive edema seen within the middle and lateral cuneiform bones as well as the navicular bone which may represent sequelae of acute infectious and or inflammatory changes and or neuropathic change and or additional etiology. Clinical correlation. Subchondral cyst formation and or osteochondral change and or developing stress injury and or additional etiology seen within the volar base of the medial cuneiform bone. Clinical correlation. Signal changes seen within the lateral sesamoid bone which may be the sequelae of osteochondral change. Clinical correlation. Some lobulated fluid seen within the volar soft tissues of the midfoot as demonstrated on series 4, image 5. Small ankle joint effusion. Lobulated fluid seen at the proximal aspect of the sinus tarsi. 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 Impression: 1. Prominent signal abnormality seen within the head of the 2nd metatarsal bone demonstrating decreased T1 signal and increased STIR signal concerning for an acute osteomyelitis. Prominent soft tissue ulceration at the volar base of the 2nd metatarsal head. 2. Patchy signal abnormality seen within the 1st distal phalanx and remnant 1st proximal phalanx demonstrating patchy decreased T1 signal and increased STIR signal which may represent underlying developing acute infectious changes such as developing acute osteomyelitis. Clinical correlation. 3. Resection of the 2nd digit to the metatarsal head. Resection of the 3rd digit to the metatarsal head. Resection of the head of the 1st proximal phalanx. Moderate hallux valgus deformity. Plantar calcaneal spurring. Degenerative changes noted at the dorsal aspect of the midfoot. 4. Some minimal nonspecific patchy reactive edema at the remnant 3rd metatarsal head. 5. On the long-axis STIR sequences, there is some nonspecific reactive edema at the 4th distal phalanx. 6. Some nonspecific reactive edema seen within the middle and lateral cuneiform bones as well as the navicular bone which may represent sequelae of acute infectious and or inflammatory changes and or neuropathic change and or additional etiology. Clinical correlation. 7. Lobulated fluid seen at the proximal aspect of the sinus tarsi. 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 8. Plantar calcaneal spurring. 9. Some fraying and increased signal seen at the volar aspect of the Lisfranc ligament which may represent a sprain and or partial tear. 10. Subchondral cyst formation and or osteochondral change and or developing stress injury and or additional etiology seen within the volar base of the medial cuneiform bone. Clinical correlation. 12. Signal changes seen within the lateral sesamoid bone which may be the sequelae of osteochondral change. Clinical correlation. 13. Some lobulated fluid seen within the volar soft tissues of the midfoot as demonstrated on series 4, image 5. Small ankle joint effusion.
--- NOTE | 2018-10-10 17:35 | CP.PCM.PN ---
Subjective - Date & Time of Evaluation Date of Evaluation: 10/10/18 Time of Evaluation: 12:30 - Subjective Subjective: F/U Osteomyelitis R foot. Pain R foot Objective - Vital Signs/Intake and Output Vital Signs (last 24 hours): Temp Pulse Resp BP Pulse Ox 98 F 70 18 132/77 98 10/10/18 17:13 10/10/18 17:13 10/10/18 17:13 10/10/18 17:13 10/10/18 17:13 Intake and Output: 10/10/18 10/10/18 06:59 18:59 Intake Total 325 Balance 325 - Medications Medications: Current Medications Atorvastatin Calcium (Lipitor) 20 mg PO HS [facility] Last Admin: 10/09/18 23:13 Dose: 20 mg Cholecalciferol (Vitamin D) 1,000 intlu PO DAILY [facility] Last Admin: 10/10/18 11:52 Dose: 1,000 intlu Gabapentin (Neurontin) 300 mg PO BID [facility] Last Admin: 10/10/18 16:32 Dose: 300 mg Meropenem 1 gm/ Sodium (Chloride) 100 mls @ 100 mls/hr IVPB Q8 [facility]; Protocol Last Admin: 10/10/18 11:53 Dose: 100 mls/hr Daptomycin 580 mg/ Sodium (Chloride) 100 mls @ 100 mls/hr IV Q24H [facility]; Protocol Stop: 10/14/18 19:01 Last Admin: 10/09/18 21:32 Dose: 100 mls/hr Insulin Detemir (Levemir) 50 units SC HS [facility] Last Admin: 10/09/18 23:17 Dose: 50 u Insulin Human Lispro (Humalog) 20 units SC AC [facility] Last Admin: 10/10/18 16:38 Dose: 20 units Insulin Human Lispro (Humalog) 0 units SC ACHS [facility] Last Admin: 10/10/18 16:38 Dose: Not Given Losartan Potassium (Cozaar) 100 mg PO HS [facility] Last Admin: 10/09/18 23:13 Dose: 100 mg Metformin HCl (Glucophage) 850 mg PO BIDWM [facility] Last Admin: 10/10/18 16:30 Dose: 850 mg Morphine Sulfate (Morphine) 6 mg IVP Q6 PRN PRN Reason: Pain, severe (8-10) Last Admin: 10/10/18 12:11 Dose: 6 mg [id number] Ethyl Esters (Lovaza) 2 gm PO BID [facility] Last Admin: 10/10/18 16:31 Dose: 2 gm Silver Sulfadiazine (Silvadene 1% 20 Gm) 1 ea TOP DAILY [facility] Last Admin: 10/10/18 10:08 Dose: Not Given Tramadol HCl (Ultram) 50 mg PO Q6 PRN PRN Reason: Pain, moderate (4-7) - Labs Labs: 10/10/18 06:10 10/10/18 06:10 PT 13.8 Seconds (9.8-13.1) H 10/09/18 05:45 INR 1.2 10/09/18 05:45 APTT 32.5 Seconds (25.6-37.1) 10/09/18 05:45 - Constitutional Appears: Chronically Ill - Head Exam Head Exam: NORMAL INSPECTION - Eye Exam Eye Exam: PERRL - ENT Exam ENT Exam: Normal Exam - Neck Exam Neck Exam: Normal Inspection - Respiratory Exam Respiratory Exam: NORMAL BREATHING PATTERN - Cardiovascular Exam Cardiovascular Exam: REGULAR RHYTHM - GI/Abdominal Exam GI & Abdominal Exam: Soft, Normal Bowel Sounds - Extremities Exam Extremities Exam: Pedal Edema Additional comments: L plantar foot with open ulcer and no discharge, R plantar ulcer with open wound and yellow/bloody discharge, R dorsal foot with erythema, edema and small opening with purulent discharge. - Neurological Exam Neurological Exam: Alert, Awake, Oriented x3 - Psychiatric Exam Psychiatric exam: Normal Mood - Skin Skin Exam: Warm Assessment and Plan (1) Osteomyelitis of right foot Status: Acute (2) Abscess and cellulitis Status: Acute (3) Anemia Status: Acute (4) Hyperglycemia Status: Acute (5) Diabetes mellitus Status: Chronic (6) Diabetic neuropathy Status: Chronic (7) Hypertension Status: Chronic (8) Morbid obesity Status: Chronic (9) Dyslipidemia Status: Chronic - Assessment and Plan (Free Text) Plan: Cardiac clearance appreciated, Patient is medically cleared for Surgery in am, continue current Tx, Daptomycin, Merren , and rest of Treatment, ID f/u appreciated, Endocrinology consult appreciated. MRI R L foot OM
--- NOTE | 2018-10-10 19:26 | PN ---
DATE: 10/10/2018 ENDOCRINOLOGY FOLLOWUP NOTE LOCATION: Room 656 SUBJECTIVE: This is a 43-year-old male with recent uncontrolled type 2 insulin-requiring diabetes now being followed closely for metabolic management. He presented here with marked hyperglycemic accelerations and has been started on a basal and bolus insulin regimen as given. He also has ongoing IV antibiotic management and local debridement for a right lower extremity neuropathic ulceration in the right foot with underlying osteomyelitis and also nonhealing ulcerations in both the left and right plantar surfaces of both feet as noted. His glycemic levels are fluctuating, ranging from 164 to 222 and 259 mg/dL. His chemistry showed a BUN of 13, sodium 136, potassium 4.8, chloride 98, CO2 of 25, glucose 191 and creatinine 0.9. ASSESSMENT: This is 43-year-old male with uncontrolled and decompensated type 2 insulin-requiring diabetes presenting here with marked hyperglycemic accelerations related to a subtherapeutic insulin regimen with concomitant diabetic microvascular complications of retinopathy and polyneuropathy with macrovascular complications of peripheral arterial disease and vasculopathy with previous toe amputations and persistent nonhealing neuropathic diabetic ulcerations in both feet especially the recent one in the dorsum of the right foot with underlying osteomyelitis as noted. PLAN OF MANAGEMENT: We will continue to modify basal and bolus insulin regimen to allow for dose equilibration and keep him on the Levemir given as 50 units subcutaneous at bedtime daily as given. We will continue the Humalog given as 20 units subcutaneous t.i.d. before meals as ordered. We will also add metformin given as 850 mg b.i.d. after meals to start today as ordered. We will modify the coverage scale to obviate hypoglycemia and detailed orders have been given. We will obtain serial chemistries and supplement accordingly as needed. We will follow. Stephanie Green MD
[2018-10-10] MEDS: Insulin Detemir 100 Units/ml Inj SC SCH (21:59)
[2018-10-11] MEDS: Meropenem 1 GM in Sodium Chloride 0.9% 100 ML IVPB SCH ×3 (01:06→21:47)
[2018-10-11] MEDS: Morphine 4 MG/ML VIAL IVP PRN ×3 (04:23→22:15)
[2018-10-11] MEDS: Insulin Lispro (humaLOG) 100 Units/ml Inj SC SCH ×7 (08:35→22:03)
--- NOTE | 2018-10-11 08:37 | CP.PCM.PN ---
Subjective - Date & Time of Evaluation Date of Evaluation: 10/11/18 Time of Evaluation: 08:35 - Subjective Subjective: Podiatry progress note for attending Dr. Lna: 43 year old male with PMH DM, HTN, HLD seen at bedside complaining of pain, redness, swelling and ulceration to his right foot. Patient is aware of OR today at 1:30 admits to being NPO. Patient denies N/V/F/D/C/SOB. No other pedal complaints at this time. Objective - Vital Signs/Intake and Output Vital Signs (last 24 hours): Temp Pulse Resp BP Pulse Ox 97.1 F L 57 L 20 132/70 98 10/11/18 08:13 10/11/18 08:13 10/11/18 08:13 10/11/18 08:13 10/11/18 08:13 - Medications Medications: Current Medications Atorvastatin Calcium (Lipitor) 20 mg PO HS [facility] Last Admin: 10/10/18 22:02 Dose: 20 mg Cholecalciferol (Vitamin D) 1,000 intlu PO DAILY [facility] Last Admin: 10/10/18 11:52 Dose: 1,000 intlu Docusate Sodium (Colace) 100 mg PO BID [facility] Ferrous Sulfate (Feosol) 325 mg PO BID [facility] Gabapentin (Neurontin) 300 mg PO BID [facility] Last Admin: 10/10/18 16:32 Dose: 300 mg Meropenem 1 gm/ Sodium (Chloride) 100 mls @ 100 mls/hr IVPB Q8 [facility]; Protocol Last Admin: 10/11/18 01:06 Dose: 100 mls/hr Daptomycin 580 mg/ Sodium (Chloride) 100 mls @ 100 mls/hr IV Q24H [facility]; Protocol Stop: 10/14/18 19:01 Last Admin: 10/10/18 19:10 Dose: 100 mls/hr Sodium Chloride (Sodium Chloride 0.9%) 1,000 mls @ 100 mls/hr IV .Q10H [facility] Stop: 10/12/18 08:21 Insulin Detemir (Levemir) 50 units SC HS [facility] Last Admin: 10/10/18 21:59 Dose: 50 u Insulin Human Lispro (Humalog) 20 units SC AC [facility] Last Admin: 10/10/18 16:38 Dose: 20 units Insulin Human Lispro (Humalog) 0 units SC ACHS [facility] Last Admin: 10/10/18 22:00 Dose: 3 u Losartan Potassium (Cozaar) 100 mg PO HS [facility] Last Admin: 10/10/18 22:02 Dose: 100 mg Metformin HCl (Glucophage) 850 mg PO BIDWM [facility] Last Admin: 10/10/18 16:30 Dose: 850 mg Morphine Sulfate (Morphine) 6 mg IVP Q6 PRN PRN Reason: Pain, severe (8-10) Last Admin: 10/11/18 04:23 Dose: 6 mg [id number] Ethyl Esters (Lovaza) 2 gm PO BID [facility] Last Admin: 10/10/18 16:31 Dose: 2 gm Silver Sulfadiazine (Silvadene 1% 20 Gm) 1 ea TOP DAILY [facility] Last Admin: 10/10/18 10:08 Dose: Not Given Tramadol HCl (Ultram) 50 mg PO Q6 PRN PRN Reason: Pain, moderate (4-7) - Labs Labs: 10/10/18 06:10 10/10/18 06:10 PT 13.8 Seconds (9.8-13.1) H 10/09/18 05:45 INR 1.2 10/09/18 05:45 APTT 32.5 Seconds (25.6-37.1) 10/09/18 05:45 - Constitutional Appears: Well, Non-toxic, No Acute Distress - Head Exam Head Exam: ATRAUMATIC - Extremities Exam Additional comments: Dressing dry, clean and intact. - Neurological Exam Neurological Exam: Alert, Awake, Oriented x3 Assessment and Plan - Assessment and Plan (Free Text) Assessment: 43 year old male with PMH DM, HTN, HLD seen at bedside for right foot infected ulcer with possible osteomyelitis Plan: Patient seen and evaluated at bedside Discussed with attending, Dr. Lan Charts, labs, vitals reviewed = afebrile, WBC leukocytosis @ 8.6 ESR >120 Wound Cx pending Blood cx: strenotrophomonas maltophilia Foot x-ray: Om rght foot distal 2nd met with soft tissue changes. ID on board; appreciate recommendations Continue antibiotic per ID Podiatry plan: patient scheduled for wound debridement with met head resection at 1:30 today. Please provide medical/cardiac clearance. Podiatry will continue to follow
[2018-10-11] MEDS: Sodium Chloride 0.9% 1,000 ML IV SCH (08:48)
[2018-10-11] MEDS: Omega-3-Acid Ethyl Esters 1 GM Cap PO SCH ×2 (09:01→17:07)
[2018-10-11] MEDS: Cholecalciferol 1,000 INTLU TAB PO SCH (10:31)
--- NOTE | 2018-10-11 10:57 | CP.PCM.PN ---
Subjective - Date & Time of Evaluation Date of Evaluation: 10/11/18 Time of Evaluation: 10:57 - Subjective Subjective: ID Note- Patiten seen and examined today. He denies any fever or chills. awaiting to go to OR today for debridement of his foot.. afebrile. Objective - Vital Signs/Intake and Output Vital Signs (last 24 hours): Temp Pulse Resp BP Pulse Ox 97.1 F L 57 L 20 132/70 98 10/11/18 08:13 10/11/18 08:13 10/11/18 08:13 10/11/18 08:13 10/11/18 08:13 - Medications Medications: Current Medications Atorvastatin Calcium (Lipitor) 20 mg PO HS [facility] Last Admin: 10/10/18 22:02 Dose: 20 mg Cholecalciferol (Vitamin D) 1,000 intlu PO DAILY [facility] Last Admin: 10/11/18 10:31 Dose: Not Given Docusate Sodium (Colace) 100 mg PO BID [facility] Last Admin: 10/11/18 08:54 Dose: Not Given Ferrous Sulfate (Feosol) 325 mg PO BID [facility] Last Admin: 10/11/18 08:55 Dose: Not Given Gabapentin (Neurontin) 300 mg PO BID [facility] Last Admin: 10/11/18 10:30 Dose: Not Given Meropenem 1 gm/ Sodium (Chloride) 100 mls @ 100 mls/hr IVPB Q8 [facility]; Protocol Last Admin: 10/11/18 01:06 Dose: 100 mls/hr Daptomycin 580 mg/ Sodium (Chloride) 100 mls @ 100 mls/hr IV Q24H [facility]; Protocol Stop: 10/14/18 19:01 Last Admin: 10/10/18 19:10 Dose: 100 mls/hr Sodium Chloride (Sodium Chloride 0.9%) 1,000 mls @ 100 mls/hr IV .Q10H [facility] Stop: 10/12/18 08:21 Last Admin: 10/11/18 08:48 Dose: 100 mls/hr Insulin Detemir (Levemir) 50 units SC HS [facility] Last Admin: 10/10/18 21:59 Dose: 50 u Insulin Human Lispro (Humalog) 20 units SC AC [facility] Last Admin: 10/11/18 08:35 Dose: Not Given Insulin Human Lispro (Humalog) 0 units SC ACHS [facility] Last Admin: 10/11/18 08:55 Dose: Not Given Losartan Potassium (Cozaar) 100 mg PO HS [facility] Last Admin: 10/10/18 22:02 Dose: 100 mg Metformin HCl (Glucophage) 850 mg PO BIDWM [facility] Last Admin: 10/11/18 08:35 Dose: Not Given Morphine Sulfate (Morphine) 6 mg IVP Q6 PRN PRN Reason: Pain, severe (8-10) Last Admin: 10/11/18 10:28 Dose: 6 mg Xezau-7-Bkle Ethyl Esters (Lovaza) 2 gm PO BID [facility] Last Admin: 10/11/18 09:01 Dose: Not Given Silver Sulfadiazine (Silvadene 1% 20 Gm) 1 ea TOP DAILY [facility] Last Admin: 10/10/18 10:08 Dose: Not Given Tramadol HCl (Ultram) 50 mg PO Q6 PRN PRN Reason: Pain, moderate (4-7) - Labs Labs: - Additional Findings Additional findings: - Constitutional Appears: No Acute Distress - Head Exam Head Exam: ATRAUMATIC - Eye Exam Eye Exam: EOMI, PERRL - ENT Exam ENT Exam: Normal Oropharynx - Neck Exam Neck exam: Positive for: Full Rom - Respiratory Exam Respiratory Exam: Clear to Auscultation Bilateral, NORMAL BREATHING PATTERN - Cardiovascular Exam Cardiovascular Exam: RRR, +S1, +S2 - GI/Abdominal Exam GI & Abdominal Exam: Normal Bowel Sounds, Soft Additional comments: NT, ND - Extremities Exam Additional comments: 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 b/l plantar feet with round open ulcer left one dry and no discharge but open right plantar ulcer with open wound , some yellow/bloody discharge and right dorsal distal foot with erythema , edema and small opening with purulent discharge - Neurological Exam Neurological exam: Alert, Oriented x 3 Laboratory Results - last 72 hr 10/08/18 10/08/18 10/08/18 19:39 20:14 20:14 WBC 8.6 RBC 3.04 L Hgb 8.3 L D Hct 24.9 L MCV 81.7 D MCH 27.1 MCHC 33.2 RDW 15.8 H Plt Count 336 MPV 7.0 L Neut % (Auto) 75.1 H Lymph % (Auto) 17.0 L [place] % (Auto) 6.5 Eos % (Auto) 0.9 Baso % (Auto) 0.5 Neut # (Auto) 6.5 Lymph # (Auto) 1.5 [place] # (Auto) 0.6 Eos # (Auto) 0.1 Baso # (Auto) 0.0 ESR Cancelled Retic Count PT INR APTT Sodium 137 Potassium 4.0 Chloride 100 Carbon Dioxide 23 Anion Gap 18 BUN 15 Creatinine 0.8 Est GFR ( Amer) > 60 Est GFR (Non-Af Amer) > 60 POC Glucose (mg/dL) 149 H Random Glucose 155 H Hemoglobin A1c Lactic Acid Calcium 8.4 Magnesium Iron TIBC % Saturation Ferritin Total Bilirubin 0.3 AST 25 ALT 22 Alkaline Phosphatase 102 Total Creatine Kinase C-Reactive Protein Total Protein 8.6 H Albumin 3.9 Globulin 4.8 H Albumin/Globulin Ratio 0.8 L Triglycerides Cholesterol LDL Cholesterol Direct HDL Cholesterol Vitamin B12 RBC Folate Thyroxine (T4) TSH 3rd Generation Blood Type Blood Type Confirm Antibody Screen Crossmatch BBK History Checked 10/08/18 10/08/18 10/08/18 20:14 21:57 23:17 WBC RBC Hgb Hct MCV MCH MCHC RDW Plt Count MPV Neut % (Auto) Lymph % (Auto) [place] % (Auto) Eos % (Auto) Baso % (Auto) Neut # (Auto) Lymph # (Auto) [place] # (Auto) Eos # (Auto) Baso # (Auto) ESR > 120 H Retic Count PT INR APTT Sodium Potassium Chloride Carbon Dioxide Anion Gap BUN Creatinine Est GFR ( Amer) Est GFR (Non-Af Amer) POC Glucose (mg/dL) 124 H Random Glucose Hemoglobin A1c Lactic Acid 0.7 Calcium Magnesium Iron TIBC % Saturation Ferritin Total Bilirubin AST ALT Alkaline Phosphatase Total Creatine Kinase C-Reactive Protein Total Protein Albumin Globulin Albumin/Globulin Ratio Triglycerides Cholesterol LDL Cholesterol Direct HDL Cholesterol Vitamin B12 RBC Folate Thyroxine (T4) TSH 3rd Generation Blood Type Blood Type Confirm Antibody Screen Crossmatch BBK History Checked 10/09/18 10/09/18 10/09/18 05:45 05:45 05:45 WBC 6.0 RBC 2.92 L Hgb 7.9 L Hct 23.6 L MCV 81.0 MCH 27.1 MCHC 33.5 RDW 15.8 H Plt Count 298 MPV Neut % (Auto) Lymph % (Auto) [place] % (Auto) Eos % (Auto) Baso % (Auto) Neut # (Auto) Lymph # (Auto) [place] # (Auto) Eos # (Auto) Baso # (Auto) ESR Retic Count PT 13.8 H INR 1.2 APTT 32.5 Sodium 135 Potassium 4.0 Chloride 97 L Carbon Dioxide 24 Anion Gap 18 BUN 13 Creatinine 0.8 Est GFR ( Amer) > 60 Est GFR (Non-Af Amer) > 60 POC Glucose (mg/dL) Random Glucose 311 H Hemoglobin A1c Lactic Acid Calcium 8.5 Magnesium Iron TIBC % Saturation Ferritin Total Bilirubin 0.4 AST 19 ALT 21 Alkaline Phosphatase 100 Total Creatine Kinase C-Reactive Protein Total Protein 7.9 Albumin 3.5 Globulin 4.5 H Albumin/Globulin Ratio 0.8 L Triglycerides 146 Cholesterol 90 LDL Cholesterol Direct 42 HDL Cholesterol 19 L Vitamin B12 RBC Folate Thyroxine (T4) TSH 3rd Generation Blood Type Blood Type Confirm Antibody Screen Crossmatch BBK History Checked 10/09/18 10/09/18 10/09/18 05:45 05:45 05:45 WBC RBC Hgb Hct MCV MCH MCHC RDW Plt Count MPV Neut % (Auto) Lymph % (Auto) [place] % (Auto) Eos % (Auto) Baso % (Auto) Neut # (Auto) Lymph # (Auto) [place] # (Auto) Eos # (Auto) Baso # (Auto) ESR Retic Count PT INR APTT Sodium Potassium Chloride Carbon Dioxide Anion Gap BUN Creatinine Est GFR ( Amer) Est GFR (Non-Af Amer) POC Glucose (mg/dL) Random Glucose Hemoglobin A1c 8.2 H Lactic Acid Calcium Magnesium Iron TIBC % Saturation Ferritin Total Bilirubin AST ALT Alkaline Phosphatase Total Creatine Kinase C-Reactive Protein 83.00 H Total Protein Albumin Globulin Albumin/Globulin Ratio Triglycerides Cholesterol LDL Cholesterol Direct HDL Cholesterol Vitamin B12 RBC Folate Thyroxine (T4) TSH 3rd Generation Blood Type Blood Type Confirm O POSITIVE Antibody Screen Crossmatch BBK History Checked 10/09/18 10/09/18 10/09/18 05:53 10:30 10:30 WBC 5.7 RBC 2.89 L Hgb 7.9 L Hct 23.3 L MCV 80.6 MCH 27.4 MCHC 34.0 RDW 15.8 H Plt Count 297 MPV Neut % (Auto) Lymph % (Auto) [place] % (Auto) Eos % (Auto) Baso % (Auto) Neut # (Auto) Lymph # (Auto) [place] # (Auto) Eos # (Auto) Baso # (Auto) ESR Retic Count 2.3 H PT INR APTT Sodium Potassium Chloride Carbon Dioxide Anion Gap BUN Creatinine Est GFR ( Amer) Est GFR (Non-Af Amer) POC Glucose (mg/dL) 265 H Random Glucose Hemoglobin A1c Lactic Acid Calcium Magnesium Iron 43 L TIBC 216 L % Saturation 20 Ferritin Total Bilirubin AST ALT Alkaline Phosphatase Total Creatine Kinase C-Reactive Protein Total Protein Albumin Globulin Albumin/Globulin Ratio Triglycerides Cholesterol LDL Cholesterol Direct HDL Cholesterol Vitamin B12 RBC Folate Thyroxine (T4) TSH 3rd Generation Blood Type Blood Type Confirm Antibody Screen Crossmatch BBK History Checked 10/09/18 10/09/18 10/09/18 10:30 10:30 10:30 WBC RBC Hgb Hct MCV MCH MCHC RDW Plt Count MPV Neut % (Auto) Lymph % (Auto) [place] % (Auto) Eos % (Auto) Baso % (Auto) Neut # (Auto) Lymph # (Auto) [place] # (Auto) Eos # (Auto) Baso # (Auto) ESR Retic Count PT INR APTT Sodium Potassium Chloride Carbon Dioxide Anion Gap BUN Creatinine Est GFR ( Amer) Est GFR (Non-Af Amer) POC Glucose (mg/dL) Random Glucose Hemoglobin A1c Lactic Acid Calcium Magnesium Iron TIBC % Saturation Ferritin 193.0 Total Bilirubin AST ALT Alkaline Phosphatase Total Creatine Kinase C-Reactive Protein Total Protein Albumin Globulin Albumin/Globulin Ratio Triglycerides Cholesterol LDL Cholesterol Direct HDL Cholesterol Vitamin B12 374 RBC Folate 1201 Thyroxine (T4) TSH 3rd Generation Blood Type O POSITIVE Blood Type Confirm Antibody Screen Negative Crossmatch See Detail BBK History Checked No verified bt 10/09/18 10/09/18 10/09/18 11:04 16:30 20:30 WBC RBC Hgb Hct MCV MCH MCHC RDW Plt Count MPV Neut % (Auto) Lymph % (Auto) [place] % (Auto) Eos % (Auto) Baso % (Auto) Neut # (Auto) Lymph # (Auto) [place] # (Auto) Eos # (Auto) Baso # (Auto) ESR Retic Count PT INR APTT Sodium Potassium Chloride Carbon Dioxide Anion Gap BUN Creatinine Est GFR ( Amer) Est GFR (Non-Af Amer) POC Glucose (mg/dL) 321 H 211 H Random Glucose Hemoglobin A1c Lactic Acid Calcium Magnesium Iron TIBC % Saturation Ferritin Total Bilirubin AST ALT Alkaline Phosphatase Total Creatine Kinase 52 L C-Reactive Protein Total Protein Albumin Globulin Albumin/Globulin Ratio Triglycerides Cholesterol LDL Cholesterol Direct HDL Cholesterol Vitamin B12 RBC Folate Thyroxine (T4) TSH 3rd Generation Blood Type Blood Type Confirm Antibody Screen Crossmatch BBK History Checked 10/09/18 10/10/18 10/10/18 22:26 05:28 06:10 WBC RBC Hgb Hct MCV MCH MCHC RDW Plt Count MPV Neut % (Auto) Lymph % (Auto) [place] % (Auto) Eos % (Auto) Baso % (Auto) Neut # (Auto) Lymph # (Auto) [place] # (Auto) Eos # (Auto) Baso # (Auto) ESR Retic Count PT INR APTT Sodium 136 Potassium 4.8 Chloride 98 Carbon Dioxide 25 Anion Gap 18 BUN 13 Creatinine 0.9 Est GFR ( Amer) > 60 Est GFR (Non-Af Amer) > 60 POC Glucose (mg/dL) 259 H 164 H Random Glucose 191 H Hemoglobin A1c Lactic Acid Calcium 9.5 Magnesium 1.9 Iron TIBC % Saturation Ferritin Total Bilirubin 0.6 AST 27 ALT 24 Alkaline Phosphatase 101 Total Creatine Kinase C-Reactive Protein Total Protein 8.5 H Albumin 3.7 Globulin 4.8 H Albumin/Globulin Ratio 0.8 L Triglycerides Cholesterol LDL Cholesterol Direct HDL Cholesterol Vitamin B12 RBC Folate Thyroxine (T4) 4.61 L TSH 3rd Generation 0.51 Blood Type Blood Type Confirm Antibody Screen Crossmatch BBK History Checked 10/10/18 10/10/18 10/10/18 06:10 11:59 16:38 WBC 8.4 RBC 3.39 L Hgb 9.3 L Hct 27.7 L MCV 81.7 MCH 27.4 MCHC 33.5 RDW 16.1 H Plt Count 295 MPV 6.7 L Neut % (Auto) 66.4 Lymph % (Auto) 18.8 L [place] % (Auto) 13.4 H Eos % (Auto) 0.9 Baso % (Auto) 0.5 Neut # (Auto) 5.6 Lymph # (Auto) 1.6 [place] # (Auto) 1.1 H Eos # (Auto) 0.1 Baso # (Auto) 0.0 ESR Retic Count PT INR APTT Sodium Potassium Chloride Carbon Dioxide Anion Gap BUN Creatinine Est GFR ( Amer) Est GFR (Non-Af Amer) POC Glucose (mg/dL) 222 H 219 H Random Glucose Hemoglobin A1c Lactic Acid Calcium Magnesium Iron TIBC % Saturation Ferritin Total Bilirubin AST ALT Alkaline Phosphatase Total Creatine Kinase C-Reactive Protein Total Protein Albumin Globulin Albumin/Globulin Ratio Triglycerides Cholesterol LDL Cholesterol Direct HDL Cholesterol Vitamin B12 RBC Folate Thyroxine (T4) TSH 3rd Generation Blood Type Blood Type Confirm Antibody Screen Crossmatch BBK History Checked 10/10/18 10/11/18 10/11/18 21:13 05:20 11:23 WBC RBC Hgb Hct MCV MCH MCHC RDW Plt Count MPV Neut % (Auto) Lymph % (Auto) [place] % (Auto) Eos % (Auto) Baso % (Auto) Neut # (Auto) Lymph # (Auto) [place] # (Auto) Eos # (Auto) Baso # (Auto) ESR Retic Count PT INR APTT Sodium Potassium Chloride Carbon Dioxide Anion Gap BUN Creatinine Est GFR ( Amer) Est GFR (Non-Af Amer) POC Glucose (mg/dL) 320 H 258 H 227 H Random Glucose Hemoglobin A1c Lactic Acid Calcium Magnesium Iron TIBC % Saturation Ferritin Total Bilirubin AST ALT Alkaline Phosphatase Total Creatine Kinase C-Reactive Protein Total Protein Albumin Globulin Albumin/Globulin Ratio Triglycerides Cholesterol LDL Cholesterol Direct HDL Cholesterol Vitamin B12 RBC Folate Thyroxine (T4) TSH 3rd Generation Blood Type Blood Type Confirm Antibody Screen Crossmatch BBK History Checked Microbiology 10/10/18 13:45 Blood-Venous Blood Culture - Preliminary NO GROWTH AFTER 24 HOURS 10/10/18 13:45 Blood-Thru Central Line Blood Culture - Preliminary NO GROWTH AFTER 24 HOURS 10/08/18 18:00 Foot - Left Gram Stain - Final 10/08/18 18:00 Foot - Left Wound Culture - Final Pseudomonas 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 10/08/18 18:00 Foot - Right Gram Stain - Final 10/08/18 18:00 Foot - Right Wound Culture - Final Escherichia Coli Methicillin Resistant S Aureus 10/08/18 19:50 Blood Blood Culture - Preliminary Stenotrophomonas Maltophilia 10/08/18 19:50 Blood Gram Stain - Final 10/08/18 20:06 Blood Blood Culture - Preliminary Gram Negative Edson 10/08/18 20:06 Blood Gram Stain - Final Accession No. : [id number] Patient Name / ID : LILA LEVIN / [id number] Exam Date : 10/10/2018 10:50:34 ( Approved ) Study Comment : Sex / Age : M / [id number] Creator : Corwin Martinez MD Dictator : Corwin Martinez MD Patrol Officer : Scrap Sorter : Corwin Martinez MD Approver2 : Report Date : 10/10/2018 16:02:48 My Comment : MRI right foot History: Wound. Evaluate for osteomyelitis. Comparison. TECHNIQUE: Multi-echo multiplanar sequences were performed through the right foot without the use of intravenous contrast. Findings: Prior resection of the 1st metatarsal bone to the base as well as a portion of the 1st proximal phalanx. Prior resection the 2nd digit to the level head of the 2nd metatarsal bone. Large heterogeneous collection demonstrating increased STIR signal and decreased T1 signal at the level of the resection margin of the 2nd metatarsal bone measuring 3.5 x 1.8 x 3.3 centimeters suggestive for an abscess collection. Prominent signal abnormality within the adjacent 2nd metatarsal bone with decreased T1 signal and increased STIR signal consistent with an acute osteomyelitis. Adjacent signal changes seen within the base of the 3rd proximal phalanx as well as the 3rd metatarsal head with patchy decreased T1 signal and increased STIR signal suggestive for an acute developing osteomyelitis. In addition, there is some adjacent reactive edema seen within the remnant base of the 1st metatarsal bone as well as at the lateral base of the 1st proximal phalanx also demonstrating some increased STIR signal which may represent some developing acute osteomyelitic changes. Nonspecific scattered patchy reactive edema seen within the base of the 3rd metatarsal bone, middle cuneiform, lateral cuneiform, and lateral aspect of the cuboid bone. These changes may represent the sequelae of acute inflammatory and or infectious changes versus sequelae of neuropathic change versus additional etiology. Clinical correlation. Some fraying and increased signal seen at the volar aspect of the Lisfranc ligament which may represent sprain and or partial tearing. Clinical correlation. 1.2 centimeter subchondral cyst formation seen within the lateral talus. Reticulation and edema within the circumferential subcutaneous soft tissues. Impression: 1. Large heterogeneous collection demonstrating increased STIR signal and decreased T1 signal at the level of the resection margin of the 2nd metatarsal bone measuring 3.5 x 1.8 x 3.3 centimeters suggestive for an abscess collection. Prominent signal abnormality within the adjacent 2nd metatarsal bone with decreased T1 signal and increased STIR signal consistent with an acute oste omyelitis. 2. Adjacent signal changes seen within the base of the 3rd proximal phalanx as well as the 3rd metatarsal head with patchy decreased T1 signal and increased STIR signal suggestive for an acute developing osteomyelitis. 3. In addition, there is some adjacent reactive edema seen within the remnant base of the 1st metatarsal bone as well as at the lateral base of the 1st proximal phalanx also demonstrating some increased STIR signal which may represent some developing acute osteomyelitic changes. 4. Nonspecific scattered patchy reactive edema seen within the base of the 3rd metatarsal bone, middle cuneiform, lateral cuneiform, and lateral aspect of the cuboid bone. These changes may represent the sequelae of acute inflammatory and or infectious changes versus sequelae of neuropathic change versus additional etiology. Clinical correlation. 5. Some fraying and increased signal seen at the volar aspect of the Lisfranc ligament which may represent sprain and or partial tearing. Clinical correlation. 6. 1.2 centimeter subchondral cyst formation seen within the lateral talus. 7. Reticulation and edema within the circumferential subcutaneous soft tissues. Assessment and Plan (1) Abscess Status: Acute (2) Abscess and cellulitis Status: Acute (3) Bacteremia Status: Acute (4) DM type 2, uncontrolled, with lower extremity ulcer Status: Acute (5) Osteomyelitis Status: Acute - Assessment and Plan (Free Text) Assessment: A/P- 43 year old male with multiple medical conditions including b/l plantar diabetic Ulcers and now has right foot cellulitis as well as OM of the right foot as well and GNR bacteremia. afebrile blood cx- stenotrophomonas x 2 xray of the foor _ OM of right foot as per report foot cx- MRSa and e.coli foot cx- MRSA, esbl e.coli, klebsiella TTE- no mention of any vegetations on report. MRI report- as per report acute OM, abscess and rest please see report. blood cx from central line- negative PLan- pt. started on IV bactrim 15 mg/kg daily to be dividede q6 hours to treat stenotrophomonas bacteremia. Contine with IV meropenem for esbl e.coli infection of the foot day #3. also continue patient on IV daptomycin since he is allergic to vancomycin for MRSA foot infection. acute OM as per MRI and xray reports. going to OR today for debridement and drainage of th eabscess by podiatry. advise to debride all the necrotic bone . patient will need at least 3 weeks IV abx for stenotrophomas bacteremia and depending on the level of debridement and if all necrotic bone would be resected length of IV abx for the foot OM. all above d/w patietn and he verbalizes full understadning of all above and agrees with above plan of care.
[2018-10-11] MEDS: Silver Sulfadiazine 1% Cream (20 gm) TOP SCH (11:03)
[2018-10-11] MEDS ORDERED: Bupivacaine 0.5% Inj(30mL) IJ ONE ×2 (13:22→13:58)
[2018-10-11] MEDS ORDERED: Lidocaine 1% Inj (20ml) IJ ONE (13:22)
[2018-10-11] MEDS ORDERED: Sodium Chloride 0.9% 1,000 ML IV SCH (13:30)
[2018-10-11] MEDS ORDERED: Propofol 10 mg/ml Inj (20 ML) ONE (13:42)
[2018-10-11] MEDS ORDERED: Midazolam 2 MG/2 ML VIAL ONE (13:43)
[2018-10-11] MEDS: Lidocaine 2% Inj (20ml) ONE ×2 (13:55→13:58)
--- NOTE | 2018-10-11 14:27 | CP.PCM.PN ---
Subjective - Date & Time of Evaluation Date of Evaluation: 10/11/18 Time of Evaluation: 13:30 - Subjective Subjective: F/U Osteomyelitis R L foot Pain R foot Objective - Vital Signs/Intake and Output Vital Signs (last 24 hours): Temp Pulse Resp BP Pulse Ox 97.1 F L 57 L 20 132/70 98 10/11/18 08:13 10/11/18 08:13 10/11/18 08:13 10/11/18 08:13 10/11/18 08:13 - Medications Medications: Current Medications Atorvastatin Calcium (Lipitor) 20 mg PO [facility] Last Admin: 10/10/18 22:02 Dose: 20 mg Cholecalciferol (Vitamin D) 1,000 intlu PO DAILY [facility] Last Admin: 10/11/18 10:31 Dose: Not Given Docusate Sodium (Colace) 100 mg PO BID [facility] Last Admin: 10/11/18 08:54 Dose: Not Given Ferrous Sulfate (Feosol) 325 mg PO BID [facility] Last Admin: 10/11/18 08:55 Dose: Not Given Gabapentin (Neurontin) 300 mg PO BID [facility] Last Admin: 10/11/18 10:30 Dose: Not Given Meropenem 1 gm/ Sodium (Chloride) 100 mls @ 100 mls/hr IVPB Q8 [facility]; Protocol Last Admin: 10/11/18 11:30 Dose: 100 mls/hr Daptomycin 580 mg/ Sodium (Chloride) 100 mls @ 100 mls/hr IV Q24H [facility]; Protocol Stop: 10/14/18 19:01 Last Admin: 10/10/18 19:10 Dose: 100 mls/hr Sodium Chloride (Sodium Chloride 0.9%) 1,000 mls @ 100 mls/hr IV .Q10H [facility] Stop: 10/12/18 08:21 Last Admin: 10/11/18 08:48 Dose: 100 mls/hr Trimethoprim/Sulfamethoxazole (500 mg/ Dextrose) 500 mls @ 250 mls/hr IVPB Q6 [facility]; Protocol Sodium Chloride (Sodium Chloride 0.9%) 1,000 mls @ 0 mls/hr IV .Q0M [facility] Stop: 10/12/18 13:22 Insulin Detemir (Levemir) 50 units SC [facility] Last Admin: 10/10/18 21:59 Dose: 50 u Insulin Human Lispro (Humalog) 20 units SC AC [facility] Last Admin: 10/11/18 12:38 Dose: Not Given Insulin Human Lispro (Humalog) 0 units SC ACHS [facility] Last Admin: 10/11/18 12:38 Dose: Not Given Losartan Potassium (Cozaar) 100 mg PO HS [facility] Last Admin: 10/10/18 22:02 Dose: 100 mg Metformin HCl (Glucophage) 850 mg PO BIDWM [facility] Last Admin: 10/11/18 08:35 Dose: Not Given Morphine Sulfate (Morphine) 6 mg IVP Q6 PRN PRN Reason: Pain, severe (8-10) Last Admin: 10/11/18 10:28 Dose: 6 mg Hijez-0-Adls Ethyl Esters (Lovaza) 2 gm PO BID [facility] Last Admin: 10/11/18 09:01 Dose: Not Given Silver Sulfadiazine (Silvadene 1% 20 Gm) 1 ea TOP DAILY [facility] Last Admin: 10/11/18 11:03 Dose: Not Given Tramadol HCl (Ultram) 50 mg PO Q6 PRN PRN Reason: Pain, moderate (4-7) - Labs Labs: 10/10/18 06:10 10/10/18 06:10 PT 13.8 Seconds (9.8-13.1) H 10/09/18 05:45 INR 1.2 10/09/18 05:45 APTT 32.5 Seconds (25.6-37.1) 10/09/18 05:45 - Constitutional Appears: Chronically Ill - Head Exam Head Exam: NORMAL INSPECTION - Eye Exam Eye Exam: PERRL - ENT Exam ENT Exam: Normal Exam - Neck Exam Neck Exam: Normal Inspection - Respiratory Exam Respiratory Exam: NORMAL BREATHING PATTERN - Cardiovascular Exam Cardiovascular Exam: REGULAR RHYTHM - GI/Abdominal Exam GI & Abdominal Exam: Soft, Normal Bowel Sounds - Extremities Exam Additional comments: L plantar foot with open ulcer and no drainage. R plantar ulcer with open wound and yellow/bloody discharge, R dorsal foot with erythema, edema and small opening with purulent discharge. - Back Exam Back Exam: NORMAL INSPECTION - Neurological Exam Neurological Exam: Alert, Oriented x3 - Psychiatric Exam Psychiatric exam: Normal Mood - Skin Skin Exam: Warm Assessment and Plan (1) Osteomyelitis of right foot Status: Acute (2) Osteomyelitis of left foot Status: Acute (3) Abscess and cellulitis Assessment & Plan: R foot Status: Acute (4) Anemia Status: Acute (5) Hyperglycemia Status: Acute (6) Diabetes mellitus Status: Chronic (7) Diabetic neuropathy Status: Chronic (8) Hypertension Status: Chronic (9) Morbid obesity Status: Chronic (10) Dyslipidemia Status: Chronic - Assessment and Plan (Free Text) Plan: for OR today, continue current Tx , Merren, Dapto, Bactrim, Morphine and rest of Tx, f/u post-op
[2018-10-11] MEDS ORDERED: ePHEDrine 50 mg/ml Inj ONE (14:28)
[2018-10-11] MEDS ORDERED: Sodium Chloride 0.9% 500 ML IV ONE ×5 (14:31→16:00)
--- NOTE | 2018-10-11 15:20 | PCM.SURG1 ---
Surgeon's Initial Post Op Note - Surgeon's Notes Surgeon: Dr. Geovanni Hernandez.DPM Manager Image: Dr. Robert Call.DPM/PGY1 Type of Anesthesia: General LMA, Local Anesthesia Administered By: Dr. Sanchez Pre-Operative Diagnosis: - Right infected foot ulcertions. - Left Chronic non healing ulcers with underlying osteomyelitis. Operative Findings: See Dictation. Injectables: 20 cc of 1:1 mixture of lido ne 1% and marcaine 0.25% plain to the right foot. 20 cc of 1:1 mixture of lidocaine 1% and marcaine 0.25% plain to the left foot. Materials: 2-0 Prolene sutures. Post-Operative Diagnosis: - Right infected foot ulcertions. - Left Chronic non healing ulcers with underlying osteomyelitis. Operation Performed: 1- Incision and drainage of right foot abscess with debridement of infected ulcer with right 2nd metatarsal bone partial resection. 3- Left foot debridement of infected ulcer with left 2nd metatarsal bone partial resection. Specimen/Specimens Removed: 1- Right partially resected 2nd metatarsal bone. 2- Left partially resected 2nd metatarsal bone Estimated Blood Loss: EBL {In ML}: 50 Blood Products Given: N/A Drains Used: No Drains Post-Op Condition: Good Date of Surgery/Procedure: 10/11/18 Time of Surgery/Procedure: 15:24
[2018-10-11] MEDS: HYDROmorphone 0.5 mg/0.5 ml ISec IVP PRN ×3 (15:25→15:46)
[2018-10-11] MEDS ORDERED: Oxycodone/Acetaminophen 5/325 mg Tab PO PRN ×2 (15:26)
[2018-10-11] MEDS ORDERED: TRIMETHOPRIM IVPB SCH (16:00)
[2018-10-11] MEDS ORDERED: SULFAMETHOXAZOLE IVPB SCH (16:00)
[2018-10-11] MEDS ORDERED: WATER IVPB SCH (16:00)
[2018-10-11] MEDS ORDERED: DEXTROSE 5% IVPB SCH (16:00)
--- NOTE | 2018-10-11 16:36 | PN ---
DATE: 10/11/2018 ENDOCRINOLOGY FOLLOWUP NOTE LOCATION: Room 658. SUBJECTIVE: This is a 43-year-old male with recent uncontrolled type 2 insulin-requiring diabetes, now being followed closely for metabolic management. His glycemic levels are fluctuating but improved and the glucose values have ranged from 227-258 mg/dL. However, it was still 320 at bedtime last night as noted. LABORATORY DATA: His chemistry showed a BUN of 13, sodium 136, potassium 4.8, chloride 98, CO2 of 25, glucose 191 and creatinine 0.9. ASSESSMENT AND PLAN: So at this time we will modify once again his basal and bolus insulin regimen and increase the basal insulin to Levemir given as 60 units subcutaneous at bedtime daily to start tonight. We will continue the low-dose correction scale using Humalog insulin to obviate hypoglycemia and detailed orders have been given. We will also increase his Humalog to 24 units t.i.d. before meals to start at dinnertime today as ordered. We will obtain serial chemistries and supplement accordingly as needed. We will follow. Stephanie Green MD
[2018-10-11] MEDS: Insulin Detemir 100 Units/ml Inj SC SCH (22:05)
[2018-10-12] MEDS: TRIMETHOPRIM IVPB SCH ×4 (00:22→16:58)
[2018-10-12] MEDS: SULFAMETHOXAZOLE IVPB SCH ×4 (00:22→16:58)
[2018-10-12] MEDS: WATER IVPB SCH ×4 (00:22→16:58)
[2018-10-12] MEDS: DEXTROSE 5% IVPB SCH ×4 (00:22→16:58)
[2018-10-12] MEDS: Sodium Chloride 0.9% 1,000 ML IV SCH ×4 (01:00→21:00)
[2018-10-12] MEDS: Morphine 4 MG/ML VIAL IVP PRN ×4 (03:01→20:42)
--- NOTE | 2018-10-12 04:22 | OP ---
PROCEDURE DATE: 10/11/2018 SURGEON: Geovanni Wright DPM [employer] ASSOCIATE: Robert Call DPM, PGY-1 TYPE OF ANESTHESIA: General LMA plus local anesthesia. ANESTHESIA ADMINISTERED BY: Dr. Daniel Scott. PREOPERATIVE DIAGNOSES: 1. Right infected foot ulceration and abscess with underlying osteomyelitis. 2. Left chronic nonhealing ulceration with underlying osteomyelitis. POSTOPERATIVE DIAGNOSES: 1. Right infected foot ulceration and abscess with underlying osteomyelitis. 2. Left chronic nonhealing foot ulceration with underlying osteomyelitis. OPERATION PERFORMED: 1. Incision and drainage of the right foot abscess with debridement of all infected ulcers with right second metatarsal bone partial resection. 2. Left foot debridement of nonhealing ulcer with left second metatarsal bone partial resection. INDICATION: The patient is a 43-year-old male with the above diagnoses. The patient has exhausted all the conservative treatments at this time and now requests surgical intervention. The patient signed the consent after careful explanation of risks, benefits, complications, and alternatives for surgical procedure. No guarantees were given nor implied. PREPARATION: The patient was brought to the operating room and placed on the operating room table in a supine position. A time-out was performed for identification of the correct patient and procedure. The patient received a total of 20 mL of 1:1 mixture of lidocaine 1% plain and Marcaine 0.25% plain in a right ankle block fashion and another 20 mL of 1:1 mixture of lidocaine 1% plain and Marcaine 0.25% plain in a left ankle block fashion. Once local anesthesia was achieved, the bilateral feet was then prepped and draped in a normal sterile manner and the procedure began. PROCEDURE # 1: Incision and drainage of the right foot abscess with debridement of the infected ulcers with right second metatarsal bone, partial resection. Attention was directed to the patient's right foot in which using a #10 blade, an elliptical incision was made around the dorsal foot ulceration, extending proximally to the mid shaft of the second metatarsal bone. The incision was deepened through the subcutaneous tissue all the way down to the bone. About 5 mL of pus was expressed from the wound. Using a #15 blade and Metzenbaum scissors, all soft tissue was dissected from the around the bone. Also periosteum was taken off the bone using Canela elevator. Once adequate bone was exposed, a sagittal saw was used to resect the distal part of the second metatarsal bone. All necrotic, nonviable, and devitalized tissues and bones were then sent to pathology, and bone culture was taken and sent as well. The remaining sharp bone was debrided down to smoothness using rongeur. Also plantar ulcer submetatarsal bone II was sharply debrided using a #15 blade. Next, using a pulsed lavage, copious amount of saline mixed with bacitracin was utilized to flush the wound. Packing was done using iodine pack. Then 2-0 Prolene suture was used to approximate the skin edges in a simple and retention sutures technique. PROCEDURE #2: Left foot debridement of nonhealing ulcer with left second metatarsal bone partial resection. Attention was then directed to the patient's left foot in which using a #10 blade, an elliptical incision was made around the planter submetatarsal bone II foot ulceration, the incision extended proximally to the mid shaft of the second metatarsal bone. The incision was deepened through the subcutaneous tissue all the way down to the bone using a #15 blade and the Metzenbaum scissors. Using the blade and the scissor, all the soft tissue was incised from around the wound. Periosteum also was taken off the bone using Canela elevator. Once adequate bone was exposed, a sagittal saw was used to resect the distal part of the second metatarsal bone. All necrotic, nonviable and devitalized tissues and bone was then sent to pathology and bone culture was taken and sent as well. The remaining sharp bone was then debrided down to smoothness with rongeur. Also, a plantar ulcer on the submetatarsal I and under the first digit were sharply debrided using a #10 blade. Next using pulsed lavage, copious amount of saline mixed with bacitracin utilized to flush the wound. Packing was done using iodine pack. Then 2-0 Prolene suture was used to reapproximate the skin edges in a simple and retention sutures technique. The surgical site was then dressed bilaterally using Xeroform, dry gauze, ABD, Kerlix, and Price bandage. POSTOPERATIVE CONDITION: The patient tolerated the anesthesia and the procedure well and was escorted to the recovery with vital signs stable and neurovascular status intact to bilateral lower extremities. The patient to be weightbearing as tolerated into a surgical shoe to bilateral lower extremities. Podiatry will continue to follow up the patient while in-house, and the patient will follow up with Dr. Geovanni Wright upon discharge. Robert Call DPM, PGY-1 Geovanni Wright DPM MELONIE
[2018-10-12] MEDS: Meropenem 1 GM in Sodium Chloride 0.9% 100 ML IVPB SCH ×3 (05:45→20:46)
[2018-10-12] MEDS: Insulin Lispro (humaLOG) 100 Units/ml Inj SC SCH ×7 (08:46→22:14)
--- NOTE | 2018-10-12 08:46 | RAD ---
Date of service: 10/11/2018 HISTORY: S/P b/l 2nd met. resection COMPARISON: None available. FINDINGS: BONES: Status post bilateral 2nd metatarsal resections as well as 3rd left distal osteotomies and partial resection of the 1st metatarsal on the right. Associated diffuse bilateral subcutaneous soft tissue swelling. Mild bilateral pes planus. Left plantar heel spur. IMPRESSION: As above.
[2018-10-12] MEDS: Omega-3-Acid Ethyl Esters 1 GM Cap PO SCH ×2 (08:58→16:57)
[2018-10-12] MEDS: Silver Sulfadiazine 1% Cream (20 gm) TOP SCH (08:59)
[2018-10-12] MEDS: Cholecalciferol 1,000 INTLU TAB PO SCH (09:02)
--- NOTE | 2018-10-12 09:45 | PN ---
DATE: 10/12/2018 ENDOCRINOLOGY FOLLOWUP NOTE LOCATION: In room 658. SUBJECTIVE: This is a 43-year-old male with recent uncontrolled type 2 insulin-requiring diabetes, presenting here with right foot cellulitis and underlying osteomyelitis, and is now receiving IV antibiotic management and local debridement, and is being followed closely also for metabolic management. His glycemic levels are fluctuating as noted overnight, but they have improved accordingly with glucose values ranging from 189-194 and 242 mg per dL. His latest chemistries showed a BUN of 13, sodium 136, potassium 4.8, chloride 98, CO2 25, glucose 191, and creatinine 0.9. ASSESSMENT: This is a 43-year-old male with uncontrolled and decompensated type 2 insulin-requiring diabetes, presenting here with right foot cellulitis and underlying osteomyelitis with neuropathic foot ulcers as noted. He also has diabetic microvascular complications of retinopathy and polyneuropathy with macrovascular complications of peripheral vasculopathy in both lower extremities. PLAN OF MANAGEMENT: We will continue to modify basal and bolus insulin regimen to allow for dose equilibration and keep him on the Humalog given as 24 units t.i.d. before meals as ordered. We will continue the basal insulin given as Levemir at 60 units subcu at bedtime daily as given. We will obtain serial chemistries and supplement accordingly as needed. We will follow. Stephanie Green MD
--- NOTE | 2018-10-12 11:31 | CP.PCM.PN ---
Subjective - Date & Time of Evaluation Date of Evaluation: 10/12/18 Time of Evaluation: 11:31 - Subjective Subjective: ID Note- Patietn seen and examined today. pt. is pod #1 POD 1 I and D of right foot abscess with debridement of infected ulcer and 2nd met bone partial resection and left foot debridement of infected ulcer with left 2nd met bone partial resection pt. denies any fever or chills. Objective - Vital Signs/Intake and Output Vital Signs (last 24 hours): Temp Pulse Resp BP Pulse Ox 98.0 F 88 20 116/66 93 L 10/12/18 08:12 10/12/18 08:12 10/12/18 08:12 10/12/18 08:12 10/12/18 08:12 - Medications Medications: Current Medications Acetaminophen (Tylenol 325mg Tab) 650 mg PO Q4 PRN PRN Reason: Pain, Mild (1-3) Atorvastatin Calcium (Lipitor) 20 mg PO HS [facility] Last Admin: 10/11/18 21:46 Dose: 20 mg Cholecalciferol (Vitamin D) 1,000 intlu PO DAILY [facility] Last Admin: 10/12/18 09:02 Dose: 1,000 intlu Docusate Sodium (Colace) 100 mg PO BID [facility] Last Admin: 10/12/18 08:55 Dose: 100 mg Ferrous Sulfate (Feosol) 325 mg PO BID [facility] Last Admin: 10/12/18 08:56 Dose: 325 mg Gabapentin (Neurontin) 300 mg PO BID [facility] Last Admin: 10/12/18 08:59 Dose: 300 mg Daptomycin 580 mg/ Sodium (Chloride) 100 mls @ 100 mls/hr IV Q24H [facility]; Protocol Stop: 10/14/18 19:01 Last Admin: 10/11/18 20:11 Dose: 100 mls/hr Sodium Chloride (Sodium Chloride 0.9%) 1,000 mls @ 0 mls/hr IV .Q0M [facility] Stop: 10/12/18 13:22 Sodium Chloride (Sodium Chloride 0.9%) 1,000 mls @ 100 mls/hr IV .Q10H [facility] Last Admin: 10/12/18 01:00 Dose: Not Given Trimethoprim/Sulfamethoxazole (500 mg/ Dextrose) 500 mls @ 250 mls/hr IVPB 0000,0600,1200,1800 [facility]; Protocol Last Admin: 10/12/18 06:45 Dose: 250 mls/hr Meropenem 1 gm/ Sodium (Chloride) 100 mls @ 100 mls/hr IVPB Q8H [facility]; Protocol Last Admin: 10/12/18 05:45 Dose: 100 mls/hr Insulin Detemir (Levemir) 60 units SC HS [facility] Last Admin: 10/11/18 22:05 Dose: 60 units Insulin Human Lispro (Humalog) 0 units SC ACHS [facility] Last Admin: 10/12/18 11:19 Dose: 5 u Insulin Human Lispro (Humalog) 24 units SC AC [facility] Last Admin: 10/12/18 11:19 Dose: 24 units Losartan Potassium (Cozaar) 100 mg PO HS [facility] Last Admin: 10/11/18 21:46 Dose: 100 mg Metformin HCl (Glucophage) 850 mg PO BIDWM [facility] Last Admin: 10/12/18 08:56 Dose: 850 mg Morphine Sulfate (Morphine) 6 mg IVP Q6 PRN PRN Reason: Pain, severe (8-10) Last Admin: 10/11/18 22:15 Dose: 6 mg Morphine Sulfate (Morphine) 4 mg IVP Q4 PRN PRN Reason: Pain, severe (8-10) Last Admin: 10/12/18 08:52 Dose: 4 mg [id number] Ethyl Esters (Lovaza) 2 gm PO BID [facility] Last Admin: 10/12/18 08:58 Dose: 2 gm Oxycodone/Acetaminophen (Percocet 5/325 Mg Tab) 1 tab PO Q4 PRN PRN Reason: Pain, moderate (4-7) Stop: 10/14/18 15:27 Oxycodone/Acetaminophen (Percocet 5/325 Mg Tab) 2 tab PO Q4 PRN PRN Reason: Pain, severe (8-10) Stop: 10/14/18 15:27 Silver Sulfadiazine (Silvadene 1% 20 Gm) 1 ea TOP DAILY [facility] Last Admin: 10/12/18 08:59 Dose: 1 applic Tramadol HCl (Ultram) 50 mg PO Q6 PRN PRN Reason: Pain, moderate (4-7) - Labs Labs: - Additional Findings Additional findings: - Additional Findings Additional findings: - Constitutional Appears: No Acute Distress - Head Exam Head Exam: ATRAUMATIC - Eye Exam Eye Exam: EOMI, PERRL - ENT Exam ENT Exam: Normal Oropharynx - Neck Exam Neck exam: Positive for: Full Rom - Respiratory Exam Respiratory Exam: Clear to Auscultation Bilateral, NORMAL BREATHING PATTERN - Cardiovascular Exam Cardiovascular Exam: RRR, +S1, +S2 - GI/Abdominal Exam GI & Abdominal Exam: Normal Bowel Sounds, Soft Additional comments: NT, ND - Extremities Exam Additional comments: b/l feet swrapped in post-surgical dressing - Neurological Exam Neurological exam: Alert, Oriented x 3 Laboratory Results - last 72 hr 10/09/18 10/09/18 10/09/18 10:30 20:30 22:26 WBC RBC Hgb Hct MCV MCH MCHC RDW Plt Count MPV Neut % (Auto) Lymph % (Auto) Rush % (Auto) Eos % (Auto) Baso % (Auto) Neut # (Auto) Lymph # (Auto) Rush # (Auto) Eos # (Auto) Baso # (Auto) Sodium Potassium Chloride Carbon Dioxide Anion Gap BUN Creatinine Est GFR ( Amer) Est GFR (Non-Af Amer) POC Glucose (mg/dL) 259 H Random Glucose Calcium Magnesium Total Bilirubin AST ALT Alkaline Phosphatase Total Creatine Kinase 52 L Total Protein Albumin Globulin Albumin/Globulin Ratio RBC Folate 1201 Thyroxine (T4) TSH 3rd Generation 10/10/18 10/10/18 10/10/18 05:28 06:10 06:10 WBC 8.4 RBC 3.39 L Hgb 9.3 L Hct 27.7 L MCV 81.7 MCH 27.4 MCHC 33.5 RDW 16.1 H Plt Count 295 MPV 6.7 L Neut % (Auto) 66.4 Lymph % (Auto) 18.8 L Rush % (Auto) 13.4 H Eos % (Auto) 0.9 Baso % (Auto) 0.5 Neut # (Auto) 5.6 Lymph # (Auto) 1.6 Rush # (Auto) 1.1 H Eos # (Auto) 0.1 Baso # (Auto) 0.0 Sodium 136 Potassium 4.8 Chloride 98 Carbon Dioxide 25 Anion Gap 18 BUN 13 Creatinine 0.9 Est GFR ( Amer) > 60 Est GFR (Non-Af Amer) > 60 POC Glucose (mg/dL) 164 H Random Glucose 191 H Calcium 9.5 Magnesium 1.9 Total Bilirubin 0.6 AST 27 ALT 24 Alkaline Phosphatase 101 Total Creatine Kinase Total Protein 8.5 H Albumin 3.7 Globulin 4.8 H Albumin/Globulin Ratio 0.8 L RBC Folate Thyroxine (T4) 4.61 L TSH 3rd Generation 0.51 10/10/18 10/10/18 10/10/18 11:59 16:38 21:13 WBC RBC Hgb Hct MCV MCH MCHC RDW Plt Count MPV Neut % (Auto) Lymph % (Auto) Rush % (Auto) Eos % (Auto) Baso % (Auto) Neut # (Auto) Lymph # (Auto) Rush # (Auto) Eos # (Auto) Baso # (Auto) Sodium Potassium Chloride Carbon Dioxide Anion Gap BUN Creatinine Est GFR ( Amer) Est GFR (Non-Af Amer) POC Glucose (mg/dL) 222 H 219 H 320 H Random Glucose Calcium Magnesium Total Bilirubin AST ALT Alkaline Phosphatase Total Creatine Kinase Total Protein Albumin Globulin Albumin/Globulin Ratio RBC Folate Thyroxine (T4) TSH 3rd Generation 10/11/18 10/11/18 10/11/18 05:20 11:23 15:20 WBC RBC Hgb Hct MCV MCH MCHC RDW Plt Count MPV Neut % (Auto) Lymph % (Auto) Rush % (Auto) Eos % (Auto) Baso % (Auto) Neut # (Auto) Lymph # (Auto) Rush # (Auto) Eos # (Auto) Baso # (Auto) Sodium Potassium Chloride Carbon Dioxide Anion Gap BUN Creatinine Est GFR ( Amer) Est GFR (Non-Af Amer) POC Glucose (mg/dL) 258 H 227 H 215 H Random Glucose Calcium Magnesium Total Bilirubin AST ALT Alkaline Phosphatase Total Creatine Kinase Total Protein Albumin Globulin Albumin/Globulin Ratio RBC Folate Thyroxine (T4) TSH 3rd Generation 10/11/18 10/11/18 10/12/18 17:19 21:56 05:34 WBC RBC Hgb Hct MCV MCH MCHC RDW Plt Count MPV Neut % (Auto) Lymph % (Auto) Rush % (Auto) Eos % (Auto) Baso % (Auto) Neut # (Auto) Lymph # (Auto) Rush # (Auto) Eos # (Auto) Baso # (Auto) Sodium Potassium Chloride Carbon Dioxide Anion Gap BUN Creatinine Est GFR ( Amer) Est GFR (Non-Af Amer) POC Glucose (mg/dL) 194 H 189 H 242 H Random Glucose Calcium Magnesium Total Bilirubin AST ALT Alkaline Phosphatase Total Creatine Kinase Total Protein Albumin Globulin Albumin/Globulin Ratio RBC Folate Thyroxine (T4) TSH 3rd Generation 10/12/18 10/12/18 10/12/18 11:07 16:27 18:30 WBC 7.0 RBC 3.21 L Hgb 8.8 L Hct 26.0 L MCV 81.0 MCH 27.4 MCHC 33.8 RDW 16.2 H Plt Count 300 MPV Neut % (Auto) Lymph % (Auto) Rush % (Auto) Eos % (Auto) Baso % (Auto) Neut # (Auto) Lymph # (Auto) Rush # (Auto) Eos # (Auto) Baso # (Auto) Sodium Potassium Chloride Carbon Dioxide Anion Gap BUN Creatinine Est GFR ( Amer) Est GFR (Non-Af Amer) POC Glucose (mg/dL) 454 H* 160 H Random Glucose Calcium Magnesium Total Bilirubin AST ALT Alkaline Phosphatase Total Creatine Kinase Total Protein Albumin Globulin Albumin/Globulin Ratio RBC Folate Thyroxine (T4) TSH 3rd Generation Microbiology 10/08/18 19:50 Blood Blood Culture - Final Stenotrophomonas Maltophilia 10/08/18 19:50 Blood Gram Stain - Final 10/10/18 13:45 Blood-Thru Central Line Blood Culture - Preliminary Gram Negative Edson 10/10/18 13:45 Blood-Thru Central Line Gram Stain - Preliminary 10/10/18 13:45 Blood-Venous Blood Culture - Preliminary Gram Negative Edson 10/10/18 13:45 Blood-Venous Gram Stain - Preliminary 10/08/18 18:00 Foot - Left Gram Stain - Final 10/08/18 18:00 Foot - Left Wound Culture - Final Pseudomonas 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 10/08/18 18:00 Foot - Right Gram Stain - Final 10/08/18 18:00 Foot - Right Wound Culture - Final Escherichia Coli Methicillin Resistant S Aureus 10/08/18 20:06 Blood Blood Culture - Preliminary Gram Negative Edson 10/08/18 20:06 Blood Gram Stain - Final Assessment and Plan (1) Abscess Status: Acute (2) Abscess and cellulitis Status: Acute (3) Bacteremia Status: Acute (4) DM type 2, uncontrolled, with lower extremity ulcer Status: Acute (5) Osteomyelitis Status: Acute - Assessment and Plan (Free Text) Assessment: A/P- 43 year old male with multiple medical conditions including b/l plantar diabetic Ulcers and now has right foot cellulitis as well as OM of the right foot as well and GNR bacteremia. pt. is pod #1 POD 1 I and D of right foot abscess with debridement of infected ulcer and 2nd met bone partial resection and left foot debridement of infected ulcer with left 2nd met bone partial resection afebrile 2/12-blood cx- stenotrophomonas x 2 2/14- blood cx- GNR x2 one from central line xray of the foor _ OM of right foot as per report foot cx- MRSa and e.coli foot cx- MRSA, esbl e.coli, klebsiella TTE- no mention of any vegetations on report. MRI report- as per report acute OM, abscess and rest please see repor PLan- continue with IV bactrim for stenotrophomonas bacteremia.day #2 Contine with IV meropenem for esbl e.coli infection of the foot day #4 also continue patient on IV daptomycin since he is allergic to vancomycin for MRSA foot infection. advise to remove the port since Blood cx from port is reported as GNR. place peripheral IVL and sterilize the blood before placing another central line. patient will need at least 3 weeks IV abx for stenotrophomas bacteremia and depending on the level of debridement and if all necrotic bone resected then 3-4 weeks of IV antibiotics for the Om of the foot as well. all above d/w patient and he verbalizes full understanding of all above and agrees with above plan of care.
--- NOTE | 2018-10-12 13:46 | CP.PCM.PN ---
Subjective - Date & Time of Evaluation Date of Evaluation: 10/12/18 Time of Evaluation: 10:50 - Subjective Subjective: F/U Osteomyelitis R L foot, s/p surgery. C/O of pain in R L foot, requesting pain medication. Objective - Vital Signs/Intake and Output Vital Signs (last 24 hours): Temp Pulse Resp BP Pulse Ox 98.0 F 88 20 116/66 93 L 10/12/18 08:12 10/12/18 08:12 10/12/18 08:12 10/12/18 08:12 10/12/18 08:12 - Medications Medications: Current Medications Acetaminophen (Tylenol 325mg Tab) 650 mg PO Q4 PRN PRN Reason: Pain, Mild (1-3) Atorvastatin Calcium (Lipitor) 20 mg PO [facility] Last Admin: 10/11/18 21:46 Dose: 20 mg Cholecalciferol (Vitamin D) 1,000 intlu PO DAILY REPLACED BY [facility] Last Admin: 10/12/18 09:02 Dose: 1,000 intlu Docusate Sodium (Colace) 100 mg PO BID REPLACED BY [facility] Last Admin: 10/12/18 08:55 Dose: 100 mg Ferrous Sulfate (Feosol) 325 mg PO BID REPLACED BY [facility] Last Admin: 10/12/18 08:56 Dose: 325 mg Gabapentin (Neurontin) 300 mg PO BID REPLACED BY [facility] Last Admin: 10/12/18 08:59 Dose: 300 mg Daptomycin 580 mg/ Sodium (Chloride) 100 mls @ 100 mls/hr IV Q24H REPLACED BY [facility]; Protocol Stop: 10/14/18 19:01 Last Admin: 10/11/18 20:11 Dose: 100 mls/hr Sodium Chloride (Sodium Chloride 0.9%) 1,000 mls @ 100 mls/hr IV .Q10H REPLACED BY [facility] Last Admin: 10/12/18 11:32 Dose: 100 mls/hr Trimethoprim/Sulfamethoxazole (500 mg/ Dextrose) 500 mls @ 250 mls/hr IVPB 0000,0600,1200,1800 REPLACED BY [facility]; Protocol Last Admin: 10/12/18 12:53 Dose: 250 mls/hr Meropenem 1 gm/ Sodium (Chloride) 100 mls @ 100 mls/hr IVPB Q8H REPLACED BY [facility]; Protocol Last Admin: 10/12/18 11:30 Dose: 100 mls/hr Insulin Detemir (Levemir) 60 units SC [facility] Last Admin: 10/11/18 22:05 Dose: 60 units Insulin Human Lispro (Humalog) 0 units SC ACHS REPLACED BY [facility] Last Admin: 10/12/18 11:19 Dose: 5 u Insulin Human Lispro (Humalog) 24 units SC AC REPLACED BY [facility] Last Admin: 10/12/18 11:19 Dose: 24 units Losartan Potassium (Cozaar) 100 mg PO HS REPLACED BY [facility] Last Admin: 10/11/18 21:46 Dose: 100 mg Metformin HCl (Glucophage) 850 mg PO BIDWM REPLACED BY [facility] Last Admin: 10/12/18 08:56 Dose: 850 mg Morphine Sulfate (Morphine) 6 mg IVP Q6 PRN PRN Reason: Pain, severe (8-10) Last Admin: 10/11/18 22:15 Dose: 6 mg Morphine Sulfate (Morphine) 4 mg IVP Q4 PRN PRN Reason: Pain, severe (8-10) Last Admin: 10/12/18 08:52 Dose: 4 mg Xzhac-8-Vtcy Ethyl Esters (Lovaza) 2 gm PO BID REPLACED BY [facility] Last Admin: 10/12/18 08:58 Dose: 2 gm Oxycodone/Acetaminophen (Percocet 5/325 Mg Tab) 1 tab PO Q4 PRN PRN Reason: Pain, moderate (4-7) Stop: 10/14/18 15:27 Oxycodone/Acetaminophen (Percocet 5/325 Mg Tab) 2 tab PO Q4 PRN PRN Reason: Pain, severe (8-10) Stop: 10/14/18 15:27 Silver Sulfadiazine (Silvadene 1% 20 Gm) 1 ea TOP DAILY REPLACED BY [facility] Last Admin: 10/12/18 08:59 Dose: 1 applic Tramadol HCl (Ultram) 50 mg PO Q6 PRN PRN Reason: Pain, moderate (4-7) - Labs Labs: 10/10/18 06:10 10/10/18 06:10 PT 13.8 Seconds (9.8-13.1) H 10/09/18 05:45 INR 1.2 10/09/18 05:45 APTT 32.5 Seconds (25.6-37.1) 10/09/18 05:45 - Constitutional Appears: Chronically Ill - Head Exam Head Exam: NORMAL INSPECTION - Eye Exam Eye Exam: PERRL - ENT Exam ENT Exam: Normal Exam - Neck Exam Neck Exam: Normal Inspection - Respiratory Exam Respiratory Exam: NORMAL BREATHING PATTERN - Cardiovascular Exam Cardiovascular Exam: REGULAR RHYTHM - GI/Abdominal Exam GI & Abdominal Exam: Soft, Normal Bowel Sounds - Extremities Exam Additional comments: B/L feet wrapped in post surgical wrap. Pod#1 I&D R foot abscess with debridement, 2nd met bone partial resection. Left foot debridement of infected ulcer with 2nd met bone partial resection. - Neurological Exam Neurological Exam: Alert, Awake, Oriented x3 - Psychiatric Exam Psychiatric exam: Normal Mood - Skin Skin Exam: Warm Assessment and Plan (1) Osteomyelitis of right foot Status: Acute (2) Osteomyelitis of left foot Status: Acute (3) MRSA cellulitis of left foot Status: Acute (4) MRSA cellulitis of right foot Status: Acute (5) Status post surgery of both feet Status: Acute (6) Abscess and cellulitis Status: Acute (7) Anemia Status: Acute (8) Hyperglycemia Status: Acute (9) Diabetes mellitus Status: Chronic (10) Diabetic neuropathy Status: Chronic (11) Hypertension Status: Chronic (12) Morbid obesity Status: Chronic (13) Dyslipidemia Status: Acute - Assessment and Plan (Free Text) Plan: POD #1, continue Morphine, Merren, Daptomycin, Dapto, and rest of Tx., contact isolation wound R L foot Staph MRSA
--- NOTE | 2018-10-12 15:48 | CP.PCM.PN ---
Subjective - Date & Time of Evaluation Date of Evaluation: 10/12/18 Time of Evaluation: 15:46 - Subjective Subjective: Podiatry progress note - Dr. Lan 43M seen and evaluated at bedside this AM POD 1 I and D of right foot abscess with debridement of infected ulcer and 2nd met bone partial resection and left foot debridement of infected ulcer with left 2nd met bone partial resection. Resting comfortably, in no acute distress. Reports mild pain to feet. Denies n/v/f/c/sob. Has no other acute complaints. Objective - Vital Signs/Intake and Output Vital Signs (last 24 hours): Temp Pulse Resp BP Pulse Ox 98.0 F 88 20 116/66 93 L 10/12/18 08:12 10/12/18 08:12 10/12/18 08:12 10/12/18 08:12 10/12/18 08:12 - Medications Medications: Current Medications Acetaminophen (Tylenol 325mg Tab) 650 mg PO Q4 PRN PRN Reason: Pain, Mild (1-3) Atorvastatin Calcium (Lipitor) 20 mg PO HS [facility] Last Admin: 10/11/18 21:46 Dose: 20 mg Cholecalciferol (Vitamin D) 1,000 intlu PO DAILY [facility] Last Admin: 10/12/18 09:02 Dose: 1,000 intlu Docusate Sodium (Colace) 100 mg PO BID [facility] Last Admin: 10/12/18 08:55 Dose: 100 mg Ferrous Sulfate (Feosol) 325 mg PO BID [facility] Last Admin: 10/12/18 08:56 Dose: 325 mg Gabapentin (Neurontin) 300 mg PO BID [facility] Last Admin: 10/12/18 08:59 Dose: 300 mg Daptomycin 580 mg/ Sodium (Chloride) 100 mls @ 100 mls/hr IV Q24H [facility]; Protocol Stop: 10/14/18 19:01 Last Admin: 10/11/18 20:11 Dose: 100 mls/hr Sodium Chloride (Sodium Chloride 0.9%) 1,000 mls @ 100 mls/hr IV .Q10H [facility] Last Admin: 10/12/18 11:32 Dose: 100 mls/hr Trimethoprim/Sulfamethoxazole (500 mg/ Dextrose) 500 mls @ 250 mls/hr IVPB 0000,0600,1200,1800 [facility]; Protocol Last Admin: 02/16/19 12:53 Dose: 250 mls/hr Meropenem 1 gm/ Sodium (Chloride) 100 mls @ 100 mls/hr IVPB Q8H [facility]; Protocol Last Admin: 10/12/18 11:30 Dose: 100 mls/hr Insulin Detemir (Levemir) 60 units SC HS [facility] Last Admin: 10/11/18 22:05 Dose: 60 units Insulin Human Lispro (Humalog) 0 units SC ACHS [facility] Last Admin: 10/12/18 11:19 Dose: 5 u Insulin Human Lispro (Humalog) 24 units SC AC [facility] Last Admin: 10/12/18 11:19 Dose: 24 units Losartan Potassium (Cozaar) 100 mg PO HS [facility] Last Admin: 10/11/18 21:46 Dose: 100 mg Metformin HCl (Glucophage) 850 mg PO BIDWM [facility] Last Admin: 10/12/18 08:56 Dose: 850 mg Morphine Sulfate (Morphine) 6 mg IVP Q6 PRN PRN Reason: Pain, severe (8-10) Last Admin: 10/11/18 22:15 Dose: 6 mg Morphine Sulfate (Morphine) 4 mg IVP Q4 PRN PRN Reason: Pain, severe (8-10) Last Admin: 10/12/18 14:56 Dose: 4 mg Ekmgk-2-Fkwb Ethyl Esters (Lovaza) 2 gm PO BID [facility] Last Admin: 10/12/18 08:58 Dose: 2 gm Oxycodone/Acetaminophen (Percocet 5/325 Mg Tab) 1 tab PO Q4 PRN PRN Reason: Pain, moderate (4-7) Stop: 10/14/18 15:27 Oxycodone/Acetaminophen (Percocet 5/325 Mg Tab) 2 tab PO Q4 PRN PRN Reason: Pain, severe (8-10) Stop: 10/14/18 15:27 Silver Sulfadiazine (Silvadene 1% 20 Gm) 1 ea TOP DAILY [facility] Last Admin: 10/12/18 08:59 Dose: 1 applic Tramadol HCl (Ultram) 50 mg PO Q6 PRN PRN Reason: Pain, moderate (4-7) - Labs Labs: 10/10/18 06:10 10/10/18 06:10 PT 13.8 Seconds (9.8-13.1) H 10/09/18 05:45 INR 1.2 10/09/18 05:45 APTT 32.5 Seconds (25.6-37.1) 10/09/18 05:45 - Constitutional Appears: Non-toxic, No Acute Distress - Head Exam Head Exam: ATRAUMATIC, NORMOCEPHALIC - Extremities Exam Additional comments: B/l exam Post op dressings intact Cap refill <3 seconds to remaining digits No pus or purulent drainage at surgical sites b/l Sutures are intact Sites are well coapted Temp gradient warm to warm - Neurological Exam Neurological Exam: Alert, Awake, Oriented x3 - Psychiatric Exam Psychiatric exam: Normal Affect, Normal Mood Assessment and Plan - Assessment and Plan (Free Text) Assessment: 43M POD 1 I and D of right foot abscess with debridement of infected ulcer and 2nd met bone partial resection and left foot debridement of infected ulcer with left 2nd met bone partial resection Plan: Patient seen and evaluated Discussed in detail with Dr. Lan Afebrile, CBC ordered Packing advanced and surgical sites redressed F/u pathology F/u cultures Continue IV abx Blood culture 10/10 prelim gram negative beverly Will continue to follow
[2018-10-12 18:40] LABS: HEMOGLOBIN 8.8 g/dL (12.0-18.0); MEAN CORPUSCULAR HEMOGLOBIN 27.4 pg (27.0-31.0); MEAN CORPUSCULAR HGB CONC 33.8 g/dL (33.0-37.0); RBC 3.21 Mil/uL (4.40-5.90); RED CELL DISTRIBUTION WIDTH 16.2 % (11.5-14.5)
[2018-10-12] MEDS: Insulin Detemir 100 Units/ml Inj SC SCH (22:11)
[2018-10-13] MEDS: Sodium Chloride 0.9% 1,000 ML IV SCH ×4 (00:05→18:12)
[2018-10-13] MEDS: SULFAMETHOXAZOLE IVPB SCH ×4 (00:24→17:07)
[2018-10-13] MEDS: WATER IVPB SCH ×4 (00:24→17:07)
[2018-10-13] MEDS: DEXTROSE 5% IVPB SCH ×4 (00:24→17:07)
[2018-10-13] MEDS: TRIMETHOPRIM IVPB SCH ×4 (00:24→17:07)
[2018-10-13] MEDS: Meropenem 1 GM in Sodium Chloride 0.9% 100 ML IVPB SCH ×3 (05:01→21:28)
[2018-10-13] MEDS: Morphine 4 MG/ML VIAL IVP PRN ×3 (06:45→23:06)
[2018-10-13] MEDS: Omega-3-Acid Ethyl Esters 1 GM Cap PO SCH ×2 (09:04→17:12)
[2018-10-13] MEDS: Cholecalciferol 1,000 INTLU TAB PO SCH (09:05)
[2018-10-13] MEDS: Insulin Lispro (humaLOG) 100 Units/ml Inj SC SCH ×7 (09:05→21:27)
[2018-10-13] MEDS: Silver Sulfadiazine 1% Cream (20 gm) TOP SCH (09:06)
--- NOTE | 2018-10-13 13:51 | CP.PCM.PN ---
Subjective - Date & Time of Evaluation Date of Evaluation: 10/13/18 Time of Evaluation: 13:49 - Subjective Subjective: Podiatry progress note - Dr. Lan 43M seen and evaluated at bedside this AM POD 1 I and D of right foot abscess with debridement of infected ulcer and 2nd met bone partial resection and left foot debridement of infected ulcer with left 2nd met bone partial resection. Resting comfortably, in no acute distress. Reports mild pain to feet. Denies n/v/f/c/sob. Has no other acute complaints. Objective - Vital Signs/Intake and Output Vital Signs (last 24 hours): Temp Pulse Resp BP Pulse Ox 97.9 F 73 20 134/70 96 10/13/18 08:52 10/13/18 08:52 10/13/18 08:52 10/13/18 08:52 10/13/18 08:52 - Medications Medications: Current Medications Acetaminophen (Tylenol 325mg Tab) 650 mg PO Q4 PRN PRN Reason: Pain, Mild (1-3) Atorvastatin Calcium (Lipitor) 20 mg PO HS [facility] Last Admin: 10/12/18 22:14 Dose: 20 mg Cholecalciferol (Vitamin D) 1,000 intlu PO DAILY [facility] Last Admin: 10/13/18 09:05 Dose: 1,000 intlu Docusate Sodium (Colace) 100 mg PO BID [facility] Last Admin: 10/13/18 09:05 Dose: 100 mg Ferrous Sulfate (Feosol) 325 mg PO BID [facility] Last Admin: 10/13/18 09:05 Dose: 325 mg Gabapentin (Neurontin) 300 mg PO BID [facility] Last Admin: 10/13/18 09:05 Dose: 300 mg Daptomycin 580 mg/ Sodium (Chloride) 100 mls @ 100 mls/hr IV Q24H [facility]; Protocol Stop: 10/14/18 19:01 Last Admin: 10/12/18 18:55 Dose: 100 mls/hr Sodium Chloride (Sodium Chloride 0.9%) 1,000 mls @ 100 mls/hr IV .Q10H [facility] Last Admin: 10/13/18 11:22 Dose: Not Given Trimethoprim/Sulfamethoxazole (500 mg/ Dextrose) 500 mls @ 250 mls/hr IVPB 0000,0600,1200,1800 [facility]; Protocol Last Admin: 10/13/18 11:16 Dose: 250 mls/hr Meropenem 1 gm/ Sodium (Chloride) 100 mls @ 100 mls/hr IVPB Q8H [facility]; Protocol Last Admin: 10/13/18 13:26 Dose: 100 mls/hr Insulin Detemir (Levemir) 60 units SC HS [facility] Last Admin: 10/12/18 22:11 Dose: 60 units Insulin Human Lispro (Humalog) 0 units SC ACHS [facility] Last Admin: 10/13/18 12:37 Dose: Not Given Insulin Human Lispro (Humalog) 24 units SC AC [facility] Last Admin: 10/13/18 12:38 Dose: 24 units Losartan Potassium (Cozaar) 100 mg PO HS [facility] Last Admin: 10/12/18 22:10 Dose: 100 mg Metformin HCl (Glucophage) 850 mg PO BIDWM [facility] Last Admin: 10/13/18 09:04 Dose: 850 mg Morphine Sulfate (Morphine) 4 mg IVP Q4 PRN PRN Reason: Pain, severe (8-10) Last Admin: 10/13/18 13:25 Dose: 4 mg Xuukh-3-Iiru Ethyl Esters (Lovaza) 2 gm PO BID [facility] Last Admin: 10/13/18 09:04 Dose: 2 gm Oxycodone/Acetaminophen (Percocet 5/325 Mg Tab) 1 tab PO Q4 PRN PRN Reason: Pain, moderate (4-7) Stop: 10/14/18 15:27 Silver Sulfadiazine (Silvadene 1% 20 Gm) 1 ea TOP DAILY [facility] Last Admin: 10/13/18 09:06 Dose: Not Given - Labs Labs: 10/12/18 18:30 10/10/18 06:10 PT 13.8 Seconds (9.8-13.1) H 10/09/18 05:45 INR 1.2 10/09/18 05:45 APTT 32.5 Seconds (25.6-37.1) 10/09/18 05:45 - Constitutional Appears: Non-toxic - Head Exam Head Exam: NORMOCEPHALIC - Extremities Exam Additional comments: B/l exam Post op dressings intact Cap refill <3 seconds to remaining digits No pus or purulent drainage at surgical sites b/l Sutures are intact Sites are well coapted Temp gradient warm to warm - Neurological Exam Neurological Exam: Alert, Awake, Oriented x3 - Psychiatric Exam Psychiatric exam: Normal Affect, Normal Mood Assessment and Plan - Assessment and Plan (Free Text) Assessment: 43M POD 1 I and D of right foot abscess with debridement of infected ulcer and 2nd met bone partial resection and left foot debridement of infected ulcer with left 2nd met bone partial resection Plan: Patient seen and evaluated Discussed in detail with Dr. Lan Afebrile, absent leukocytosis Packing removed from right foot site, left in left foot, dressed with wet to dry and DSD F/u pathology F/u cultures Continue IV abx Blood culture 10/10 stenotrophomonoas maltophilia Will continue to follow
--- NOTE | 2018-10-13 14:34 | CP.PCM.PN ---
Subjective - Date & Time of Evaluation Date of Evaluation: 10/13/18 Time of Evaluation: 11:20 - Subjective Subjective: Osteomyelitis R foot, s/p R L foot surgery. Pt c/o of pain in R L foot. Objective - Vital Signs/Intake and Output Vital Signs (last 24 hours): Temp Pulse Resp BP Pulse Ox 97.9 F 73 20 134/70 96 10/13/18 08:52 10/13/18 08:52 10/13/18 08:52 10/13/18 08:52 10/13/18 08:52 - Medications Medications: Current Medications Acetaminophen (Tylenol 325mg Tab) 650 mg PO Q4 PRN PRN Reason: Pain, Mild (1-3) Atorvastatin Calcium (Lipitor) 20 mg PO [facility] Last Admin: 10/12/18 22:14 Dose: 20 mg Cholecalciferol (Vitamin D) 1,000 intlu PO DAILY [facility] Last Admin: 10/13/18 09:05 Dose: 1,000 intlu Docusate Sodium (Colace) 100 mg PO BID [facility] Last Admin: 10/13/18 09:05 Dose: 100 mg Ferrous Sulfate (Feosol) 325 mg PO BID [facility] Last Admin: 10/13/18 09:05 Dose: 325 mg Gabapentin (Neurontin) 300 mg PO BID [facility] Last Admin: 10/13/18 09:05 Dose: 300 mg Daptomycin 580 mg/ Sodium (Chloride) 100 mls @ 100 mls/hr IV Q24H [facility]; Protocol Stop: 10/14/18 19:01 Last Admin: 10/12/18 18:55 Dose: 100 mls/hr Sodium Chloride (Sodium Chloride 0.9%) 1,000 mls @ 100 mls/hr IV .Q10H [facility] Last Admin: 10/13/18 11:22 Dose: Not Given Trimethoprim/Sulfamethoxazole (500 mg/ Dextrose) 500 mls @ 250 mls/hr IVPB 0000,0600,1200,1800 [facility]; Protocol Last Admin: 10/13/18 11:16 Dose: 250 mls/hr Meropenem 1 gm/ Sodium (Chloride) 100 mls @ 100 mls/hr IVPB Q8H [facility]; Protocol Last Admin: 10/13/18 13:26 Dose: 100 mls/hr Insulin Detemir (Levemir) 60 units SC [facility] Last Admin: 10/12/18 22:11 Dose: 60 units Insulin Human Lispro (Humalog) 0 units SC ACHS [facility] Last Admin: 10/13/18 12:37 Dose: Not Given Insulin Human Lispro (Humalog) 24 units SC AC [facility] Last Admin: 10/13/18 12:38 Dose: 24 units Losartan Potassium (Cozaar) 100 mg PO HS [facility] Last Admin: 10/12/18 22:10 Dose: 100 mg Metformin HCl (Glucophage) 850 mg PO BIDWM [facility] Last Admin: 10/13/18 09:04 Dose: 850 mg Morphine Sulfate (Morphine) 4 mg IVP Q4 PRN PRN Reason: Pain, severe (8-10) Last Admin: 10/13/18 13:25 Dose: 4 mg Hfmep-2-Peem Ethyl Esters (Lovaza) 2 gm PO BID [facility] Last Admin: 10/13/18 09:04 Dose: 2 gm Oxycodone/Acetaminophen (Percocet 5/325 Mg Tab) 1 tab PO Q4 PRN PRN Reason: Pain, moderate (4-7) Stop: 10/14/18 15:27 Silver Sulfadiazine (Silvadene 1% 20 Gm) 1 ea TOP DAILY [facility] Last Admin: 10/13/18 09:06 Dose: Not Given - Labs Labs: 10/12/18 18:30 10/10/18 06:10 PT 13.8 Seconds (9.8-13.1) H 10/09/18 05:45 INR 1.2 10/09/18 05:45 APTT 32.5 Seconds (25.6-37.1) 10/09/18 05:45 - Constitutional Appears: Chronically Ill - Head Exam Head Exam: NORMAL INSPECTION - Eye Exam Eye Exam: PERRL - ENT Exam ENT Exam: Normal Exam - Neck Exam Neck Exam: Normal Inspection - Respiratory Exam Respiratory Exam: NORMAL BREATHING PATTERN - Cardiovascular Exam Cardiovascular Exam: REGULAR RHYTHM - GI/Abdominal Exam GI & Abdominal Exam: Soft, Normal Bowel Sounds - Extremities Exam Additional comments: B/L feet dressed, no drainage at surgical site, sutures are intact. - Back Exam Back Exam: NORMAL INSPECTION - Neurological Exam Neurological Exam: Alert, Awake, Oriented x3 - Psychiatric Exam Psychiatric exam: Normal Mood - Skin Skin Exam: Warm Assessment and Plan (1) Osteomyelitis of left foot Status: Acute (2) Osteomyelitis of right foot Status: Acute (3) MRSA cellulitis of left foot Status: Acute (4) MRSA cellulitis of right foot Status: Acute (5) Status post surgery of both feet Status: Acute (6) Abscess and cellulitis Status: Acute (7) Anemia Status: Acute (8) Hyperglycemia Status: Acute (9) Diabetes mellitus Status: Chronic (10) Diabetic neuropathy Status: Chronic (11) Hypertension Status: Chronic (12) Morbid obesity Status: Chronic (13) Dyslipidemia Status: Acute - Assessment and Plan (Free Text) Plan: Continue Daptomycin, Merren, Bactrim, Morphine and rest of Tx., contact isolation Staph MRSA wound R L foot
--- NOTE | 2018-10-13 17:33 | PN ---
DATE: 10/13/2018 ENDO FOLLOWUP NOTE LOCATION: Room 658. SUBJECTIVE: This is a 43-year-old male with recent right foot cellulitis and underlying osteomyelitis and is now being followed closely for metabolic management. His glycemic levels are fluctuating, but improved and the latest glucose values overnight have ranged from 131 to 161 and 154 mg/dL. His chemistries showed a BUN of 13, sodium 136, potassium 4.8, chloride 98, CO2 of 25, glucose 191 and creatinine 0.9. So at this time, we will continue once again the same low-dose correction scale using Humalog insulin as given. We will continue also the same basal insulin with Levemir given as 60 units subcu at bedtime daily as ordered. We will also continue the same prandial insulin given as Humalog at 24 units t.i.d. before meals as ordered. We will obtain serial chemistries and supplement accordingly as needed. We will follow. Stephanie Green MD
[2018-10-13] MEDS: Insulin Detemir 100 Units/ml Inj SC SCH (21:35)
[2018-10-14] MEDS: WATER IVPB SCH ×4 (00:02→19:30)
[2018-10-14] MEDS: SULFAMETHOXAZOLE IVPB SCH ×4 (00:02→19:30)
[2018-10-14] MEDS: DEXTROSE 5% IVPB SCH ×4 (00:02→19:30)
[2018-10-14] MEDS: TRIMETHOPRIM IVPB SCH ×4 (00:02→19:30)
[2018-10-14] MEDS: Sodium Chloride 0.9% 1,000 ML IV SCH ×3 (03:30→23:45)
[2018-10-14] MEDS: Meropenem 1 GM in Sodium Chloride 0.9% 100 ML IVPB SCH ×3 (04:23→20:31)
[2018-10-14] MEDS: Morphine 4 MG/ML VIAL IVP PRN ×3 (04:37→23:46)
[2018-10-14] MEDS: Insulin Lispro (humaLOG) 100 Units/ml Inj SC SCH ×7 (07:48→22:55)
[2018-10-14 09:11] LABS: HEMOGLOBIN 8.9 g/dL (12.0-18.0); MEAN CELL VOLUME 80.9 fl (80.0-94.0); MEAN CORPUSCULAR HEMOGLOBIN 27.2 pg (27.0-31.0); MEAN CORPUSCULAR HGB CONC 33.6 g/dL (33.0-37.0); RBC 3.27 Mil/uL (4.40-5.90); RED CELL DISTRIBUTION WIDTH 16.3 % (11.5-14.5); WHITE BLOOD COUNT 7.7 K/uL (4.8-10.8)
[2018-10-14] MEDS: Silver Sulfadiazine 1% Cream (20 gm) TOP SCH (09:12)
[2018-10-14] MEDS: Omega-3-Acid Ethyl Esters 1 GM Cap PO SCH ×2 (09:13→16:26)
[2018-10-14] MEDS: Cholecalciferol 1,000 INTLU TAB PO SCH ×2 (09:13→12:52)
[2018-10-14 09:33] LABS: ALB/GLOB RATIO 0.8 (1.0-2.1); ALBUMIN 3.9 g/dL (3.5-5.0); ALT/SGPT 31 U/L (21-72); AST/SGOT 28 U/L (17-59); BLOOD UREA NITROGEN 18 mg/dl (9-20); CALCIUM 9.3 mg/dL (8.4-10.2); GFR NON-AFRICAN AMERICAN > 60
[2018-10-14] MEDS ORDERED: Midazolam 2 MG/2 ML VIAL ONE (10:14)
[2018-10-14] MEDS ORDERED: Propofol 10 mg/ml Inj (20 ML) ONE (10:14)
[2018-10-14] MEDS ORDERED: Lidocaine Hydrochloride 1% 10 ML ONE (10:28)
--- NOTE | 2018-10-14 10:40 | CP.PCM.PN ---
Subjective - Date & Time of Evaluation Date of Evaluation: 10/14/18 Time of Evaluation: 10:40 - Subjective Subjective: went to see the patietn and was informed by nurse that he is downstairs in IR to remove the infected port. await 2 repeat blood cx reports. avoid any picc or central line until we have negative blood cx. please place peripheral IVl for antibiotics at this time. Objective - Vital Signs/Intake and Output Vital Signs (last 24 hours): Temp Pulse Resp BP Pulse Ox 97.7 F 56 L 20 112/67 96 10/14/18 08:13 10/14/18 08:13 10/14/18 08:13 10/14/18 08:13 10/14/18 08:13 - Medications Medications: Current Medications Acetaminophen (Tylenol 325mg Tab) 650 mg PO Q4 PRN PRN Reason: Pain, Mild (1-3) Atorvastatin Calcium (Lipitor) 20 mg PO HS [facility] Last Admin: 10/13/18 21:34 Dose: 20 mg Cholecalciferol (Vitamin D) 1,000 intlu PO DAILY [facility] Last Admin: 10/14/18 09:13 Dose: Not Given Docusate Sodium (Colace) 100 mg PO BID [facility] Last Admin: 10/14/18 09:11 Dose: Not Given Ferrous Sulfate (Feosol) 325 mg PO BID [facility] Last Admin: 10/14/18 09:14 Dose: Not Given Gabapentin (Neurontin) 300 mg PO BID [facility] Last Admin: 10/14/18 09:13 Dose: Not Given Daptomycin 580 mg/ Sodium (Chloride) 100 mls @ 100 mls/hr IV Q24H [facility]; Protocol Stop: 10/14/18 19:01 Last Admin: 10/13/18 19:48 Dose: 100 mls/hr Sodium Chloride (Sodium Chloride 0.9%) 1,000 mls @ 100 mls/hr IV .Q10H [facility] Last Admin: 10/14/18 03:30 Dose: Not Given Trimethoprim/Sulfamethoxazole (500 mg/ Dextrose) 500 mls @ 250 mls/hr IVPB 0000,0600,1200,1800 [facility]; Protocol Last Admin: 10/14/18 05:58 Dose: 250 mls/hr Meropenem 1 gm/ Sodium (Chloride) 100 mls @ 100 mls/hr IVPB Q8H [facility]; Protocol Last Admin: 10/14/18 04:23 Dose: 100 mls/hr Insulin Detemir (Levemir) 60 units SC HS [facility] Last Admin: 10/13/18 21:35 Dose: 60 units Insulin Human Lispro (Humalog) 0 units SC ACHS [facility] Last Admin: 10/14/18 07:48 Dose: Not Given Insulin Human Lispro (Humalog) 24 units SC AC [facility] Last Admin: 10/14/18 09:13 Dose: Not Given Losartan Potassium (Cozaar) 100 mg PO HS [facility] Last Admin: 10/13/18 21:34 Dose: 100 mg Metformin HCl (Glucophage) 850 mg PO BIDWM [facility] Last Admin: 10/14/18 09:13 Dose: Not Given Morphine Sulfate (Morphine) 4 mg IVP Q4 PRN PRN Reason: Pain, severe (8-10) Last Admin: 10/14/18 04:37 Dose: 4 mg Pxuon-6-Habt Ethyl Esters (Lovaza) 2 gm PO BID [facility] Last Admin: 10/14/18 09:13 Dose: Not Given Oxycodone/Acetaminophen (Percocet 5/325 Mg Tab) 1 tab PO Q4 PRN PRN Reason: Pain, moderate (4-7) Stop: 10/14/18 15:27 Silver Sulfadiazine (Silvadene 1% 20 Gm) 1 ea TOP DAILY [facility] Last Admin: 10/14/18 09:12 Dose: Not Given - Labs Labs: 10/14/18 08:30 10/14/18 08:30 PT 13.8 Seconds (9.8-13.1) H 10/09/18 05:45 INR 1.2 10/09/18 05:45 APTT 32.5 Seconds (25.6-37.1) 10/09/18 05:45 Assessment and Plan (1) Abscess Status: Acute (2) Abscess and cellulitis Status: Acute (3) Bacteremia Status: Acute (4) DM type 2, uncontrolled, with lower extremity ulcer Status: Acute (5) Osteomyelitis Status: Acute
--- NOTE | 2018-10-14 11:10 | PCM.SURG1 ---
Surgeon's Initial Post Op Note - Surgeon's Notes Surgeon: Sterling Chen MD Lapping Machine Operator: NONE Type of Anesthesia: IV Sedation Pre-Operative Diagnosis: Infection, Port Operative Findings: Left subclavian port present. Post-Operative Diagnosis: Port infection Operation Performed: Removal of left subclavian vein port. Specimen/Specimens Removed: Port tip sent for C&S Estimated Blood Loss: EBL {In ML}: 5 Blood Products Given: N/A Drains Used: No Drains Post-Op Condition: Fair Date of Surgery/Procedure: 10/14/18 Time of Surgery/Procedure: 11:05
[2018-10-14] MEDS ORDERED: HYDROmorphone 0.5 mg/0.5 ml ISec IVP PRN (11:16)
--- NOTE | 2018-10-14 13:41 | PQF ---
PROVIDER RESPONSE TEXT: Excisional ulcer debridement for an ulcer measures [id number] cm noted at the dorsum of the right fo refoot with removal all , necrotic infected, non viable tissues including (Skin, Subcutaneous fat , fascia, muscle, tendons and bone) Incisional ulcer ulcer debridement for a right foot ulcer measures 2cmX1.2cmX0.2cm noted submetatarsa l 2 with removal all , necrotic infected, non viable tissues including (Skin, Subcutaneous fat, f ascia, muscle, tendons and bone). Excisional ulcer debridement for a left foot ulcer measures 3 cm X 1.5 cm X 0.2 cm noted submetatarsa l bone 2 with removal all , necrotic infected, non viable tissues including (Skin, Subcutaneous f at, fascia, muscle, tendons and bone). REVIEWER QUERY TEXT: Debridement Type Debridement's are documented in the Medical Record. Please specify the followin. The type: excisional versus non-excisional 2.. The size and the appearance of the ulcers 3. Removal of devitalized tissue description (devitalized tissue, necrotic, nonviable tissue, etc.) 4. The extent of debridement to include the depth of tissue removed: Such as: -- Skin -- Subcutaneous tissue -- Fascia -- Muscle -- Bone -- Other, please specify 10/11 ISigned op note includes: Procedure #1 includes: Also plantar ulcer submetatarsal bone II was s harply debrided using a #15 blade.Next, using a pulsed lavage, copious amount of saline mixed with ba citracin was utilized to flush the wound. Procedure # 2.includes: Also, a plantar ulcer on the submetatarsal I and under the first digit were sharply debrided using a #10 blade.Next using pulsed lavage, copious amount of saline mixe d with bacitracin utilized to flush the wound. The patient's Clinical Indicators include: ---- Query created by: Alma Hearn on 10/14/2018 10:54 AM Electronically signed by: Robert Call 10/14/2018 1:38 PM
--- NOTE | 2018-10-14 15:24 | CP.PCM.PN ---
Subjective - Date & Time of Evaluation Date of Evaluation: 10/14/18 Time of Evaluation: 12:30 - Subjective Subjective: F/U OM R L foot. Pain R L foot Objective - Vital Signs/Intake and Output Vital Signs (last 24 hours): Temp Pulse Resp BP Pulse Ox 97.7 F 62 20 112/69 100 10/14/18 14:00 10/14/18 14:00 10/14/18 14:00 10/14/18 14:00 10/14/18 14:00 - Medications Medications: Current Medications Acetaminophen (Tylenol 325mg Tab) 650 mg PO Q4 PRN PRN Reason: Pain, Mild (1-3) Atorvastatin Calcium (Lipitor) 20 mg PO HS [facility] Last Admin: 10/13/18 21:34 Dose: 20 mg Cholecalciferol (Vitamin D) 1,000 intlu PO DAILY [facility] Last Admin: 10/14/18 12:52 Dose: 1,000 intlu Docusate Sodium (Colace) 100 mg PO BID [facility] Last Admin: 10/14/18 09:11 Dose: Not Given Ferrous Sulfate (Feosol) 325 mg PO BID [facility] Last Admin: 10/14/18 09:14 Dose: Not Given Gabapentin (Neurontin) 300 mg PO BID [facility] Last Admin: 10/14/18 09:13 Dose: Not Given Daptomycin 580 mg/ Sodium (Chloride) 100 mls @ 100 mls/hr IV Q24H [facility]; Protocol Stop: 10/14/18 19:01 Last Admin: 10/13/18 19:48 Dose: 100 mls/hr Sodium Chloride (Sodium Chloride 0.9%) 1,000 mls @ 100 mls/hr IV .Q10H [facility] Last Admin: 10/14/18 03:30 Dose: Not Given Trimethoprim/Sulfamethoxazole (500 mg/ Dextrose) 500 mls @ 250 mls/hr IVPB 0000,0600,1200,1800 [facility]; Protocol Last Admin: 10/14/18 14:10 Dose: 250 mls/hr Meropenem 1 gm/ Sodium (Chloride) 100 mls @ 100 mls/hr IVPB Q8H [facility]; Protocol Last Admin: 10/14/18 04:23 Dose: 100 mls/hr Insulin Detemir (Levemir) 60 units SC [facility] Last Admin: 10/13/18 21:35 Dose: 60 units Insulin Human Lispro (Humalog) 0 units SC ACHS [facility] Last Admin: 10/14/18 13:04 Dose: Not Given Insulin Human Lispro (Humalog) 24 units SC AC [facility] Last Admin: 10/14/18 13:05 Dose: 24 units Losartan Potassium (Cozaar) 100 mg PO HS [facility] Last Admin: 10/13/18 21:34 Dose: 100 mg Metformin HCl (Glucophage) 850 mg PO BIDWM [facility] Last Admin: 10/14/18 09:13 Dose: Not Given Morphine Sulfate (Morphine) 4 mg IVP Q4 PRN PRN Reason: Pain, severe (8-10) Last Admin: 10/14/18 12:56 Dose: 4 mg Hplni-1-Wqys Ethyl Esters (Lovaza) 2 gm PO BID [facility] Last Admin: 10/14/18 09:13 Dose: Not Given Oxycodone/Acetaminophen (Percocet 5/325 Mg Tab) 1 tab PO Q4 PRN PRN Reason: Pain, moderate (4-7) Stop: 10/14/18 15:27 Silver Sulfadiazine (Silvadene 1% 20 Gm) 1 ea TOP DAILY [facility] Last Admin: 10/14/18 09:12 Dose: Not Given - Labs Labs: 10/14/18 08:30 10/14/18 08:30 PT 13.8 Seconds (9.8-13.1) H 10/09/18 05:45 INR 1.2 10/09/18 05:45 APTT 32.5 Seconds (25.6-37.1) 10/09/18 05:45 - Constitutional Appears: Chronically Ill - Head Exam Head Exam: NORMAL INSPECTION - Eye Exam Eye Exam: PERRL - ENT Exam ENT Exam: Normal Exam - Neck Exam Neck Exam: Normal Inspection - Respiratory Exam Respiratory Exam: NORMAL BREATHING PATTERN - Cardiovascular Exam Cardiovascular Exam: REGULAR RHYTHM - GI/Abdominal Exam GI & Abdominal Exam: Soft, Normal Bowel Sounds - Extremities Exam Extremities Exam: Pedal Edema Additional comments: B/L feet dressing, no drainage surgical site. - Neurological Exam Neurological Exam: Alert, Awake, Oriented x3 - Psychiatric Exam Psychiatric exam: Normal Mood - Skin Skin Exam: Warm Assessment and Plan (1) Status post surgery of both feet Status: Acute (2) Cellulitis of foot due to methicillin resistant Staphylococcus aureus (MRSA) Status: Acute (3) Osteomyelitis of right foot Status: Acute (4) Osteomyelitis of left foot Status: Acute (5) Abscess and cellulitis Status: Acute (6) Anemia Status: Acute (7) Hyperglycemia Status: Acute (8) Diabetes mellitus Status: Chronic (9) Diabetic neuropathy Status: Chronic (10) Hypertension Status: Chronic (11) Morbid obesity Status: Chronic (12) Dyslipidemia Status: Acute - Assessment and Plan (Free Text) Plan: PO Day 3, continue Morphine, Merren, Bactrim, Life port removed, on contact isolation, blood C-S S Maltophilia, R L foot wound C-S Staph MRSA, Psudomona, E Coli
--- NOTE | 2018-10-14 16:07 | CP.PCM.PN ---
Subjective - Date & Time of Evaluation Date of Evaluation: 10/14/18 Time of Evaluation: 17:01 - Subjective Subjective: Podiatry progress note - Dr. Lan 43M seen and evaluated at bedside this POD3 I and D of right foot abscess with debridement of infected ulcer and 2nd met bone partial resection and left foot debridement of infected ulcer with left 2nd met bone partial resection. Resting comfortably, in no acute distress. Reports mild pain to feet. Denies n/v/f/c/sob. Has no other acute complaints. Objective - Vital Signs/Intake and Output Vital Signs (last 24 hours): Temp Pulse Resp BP Pulse Ox 97.7 F 62 20 112/69 100 10/14/18 14:00 10/14/18 14:00 10/14/18 14:00 10/14/18 14:00 10/14/18 14:00 - Medications Medications: Current Medications Acetaminophen (Tylenol 325mg Tab) 650 mg PO Q4 PRN PRN Reason: Pain, Mild (1-3) Atorvastatin Calcium (Lipitor) 20 mg PO HS [facility] Last Admin: 10/13/18 21:34 Dose: 20 mg Cholecalciferol (Vitamin D) 1,000 intlu PO DAILY [facility] Last Admin: 10/14/18 12:52 Dose: 1,000 intlu Docusate Sodium (Colace) 100 mg PO BID [facility] Last Admin: 10/14/18 09:11 Dose: Not Given Ferrous Sulfate (Feosol) 325 mg PO BID [facility] Last Admin: 10/14/18 09:14 Dose: Not Given Gabapentin (Neurontin) 300 mg PO BID [facility] Last Admin: 10/14/18 09:13 Dose: Not Given Daptomycin 580 mg/ Sodium (Chloride) 100 mls @ 100 mls/hr IV Q24H [facility]; Protocol Stop: 10/14/18 19:01 Last Admin: 10/13/18 19:48 Dose: 100 mls/hr Sodium Chloride (Sodium Chloride 0.9%) 1,000 mls @ 100 mls/hr IV .Q10H [facility] Last Admin: 10/14/18 03:30 Dose: Not Given Trimethoprim/Sulfamethoxazole (500 mg/ Dextrose) 500 mls @ 250 mls/hr IVPB 0000,0600,1200,1800 [facility]; Protocol Last Admin: 10/14/18 14:10 Dose: 250 mls/hr Meropenem 1 gm/ Sodium (Chloride) 100 mls @ 100 mls/hr IVPB Q8H [facility]; Protocol Last Admin: 10/14/18 04:23 Dose: 100 mls/hr Insulin Detemir (Levemir) 60 units SC HS [facility] Last Admin: 10/13/18 21:35 Dose: 60 units Insulin Human Lispro (Humalog) 0 units SC ACHS [facility] Last Admin: 10/14/18 13:04 Dose: Not Given Insulin Human Lispro (Humalog) 24 units SC AC [facility] Last Admin: 10/14/18 13:05 Dose: 24 units Losartan Potassium (Cozaar) 100 mg PO HS [facility] Last Admin: 10/13/18 21:34 Dose: 100 mg Metformin HCl (Glucophage) 850 mg PO BIDWM [facility] Last Admin: 10/14/18 09:13 Dose: Not Given Morphine Sulfate (Morphine) 4 mg IVP Q4 PRN PRN Reason: Pain, severe (8-10) Last Admin: 10/14/18 12:56 Dose: 4 mg Fonzz-8-Huxw Ethyl Esters (Lovaza) 2 gm PO BID [facility] Last Admin: 10/14/18 09:13 Dose: Not Given Silver Sulfadiazine (Silvadene 1% 20 Gm) 1 ea TOP DAILY [facility] Last Admin: 10/14/18 09:12 Dose: Not Given - Labs Labs: 10/14/18 08:30 10/14/18 08:30 PT 13.8 Seconds (9.8-13.1) H 10/09/18 05:45 INR 1.2 10/09/18 05:45 APTT 32.5 Seconds (25.6-37.1) 10/09/18 05:45 - Constitutional Appears: Well, Non-toxic, No Acute Distress - Head Exam Head Exam: ATRAUMATIC, NORMOCEPHALIC - Extremities Exam Additional comments: B/l exam Post op dressings intact Cap refill <3 seconds to remaining digits No pus or purulent drainage at surgical sites b/l Sutures are intact Sites are well coapted Temp gradient warm to warm - Neurological Exam Neurological Exam: Alert, Awake, Oriented x3 - Psychiatric Exam Psychiatric exam: Normal Affect, Normal Mood Assessment and Plan - Assessment and Plan (Free Text) Assessment: 43M POD3 I and D of right foot abscess with debridement of infected ulcer and 2nd met bone partial resection and left foot debridement of infected ulcer with left 2nd met bone partial resection Plan: Patient seen and evaluated Discussed in detail with Dr. Lan Afebrile, absent leukocytosis Packing removed and surgical sites redressed with xeroform, DSD F/u pathology F/u cultures Continue IV abx Blood culture 10/10: Stenotrophomonas M. Will continue to follow
[2018-10-14] MEDS: Insulin Detemir 100 Units/ml Inj SC SCH (22:33)
[2018-10-15] MEDS: SULFAMETHOXAZOLE IVPB SCH ×4 (01:09→19:24)
[2018-10-15] MEDS: TRIMETHOPRIM IVPB SCH ×4 (01:09→19:24)
[2018-10-15] MEDS: DEXTROSE 5% IVPB SCH ×4 (01:09→19:24)
[2018-10-15] MEDS: WATER IVPB SCH ×4 (01:09→19:24)
[2018-10-15] MEDS: Meropenem 1 GM in Sodium Chloride 0.9% 100 ML IVPB SCH ×3 (04:01→21:49)
--- NOTE | 2018-10-15 08:07 | PN ---
DATE: 10/14/2018 ENDO FOLLOWUP NOTE LOCATION: Room 658 SUBJECTIVE: This is a 43-year-old male with recent uncontrolled type 2 insulin-requiring diabetes, now being followed closely for metabolic management. His glycemic levels have improved overnight as noted with glucose values ranging from 111-168 mg/dL. His chemistry showed a BUN of 18, sodium 135, potassium 5, chloride 98, CO2 22, glucose 130, and creatinine 1.3. So at this time, we will continue the modified basal and bolus insulin regimen as given with Humalog given as 24 units t.i.d. before meals to start today as ordered. We will continue the Levemir given as basal insulin at 60 units subcu at bedtime daily as given. We will titrate incrementally as indicated to optimize metabolic control. We will follow and advise accordingly. Stephanie Green MD
[2018-10-15] MEDS: Insulin Lispro (humaLOG) 100 Units/ml Inj SC SCH ×7 (09:41→22:21)
[2018-10-15] MEDS: Omega-3-Acid Ethyl Esters 1 GM Cap PO SCH ×2 (09:42→16:42)
[2018-10-15] MEDS: Silver Sulfadiazine 1% Cream (20 gm) TOP SCH (09:43)
[2018-10-15] MEDS: Cholecalciferol 1,000 INTLU TAB PO SCH (09:43)
--- NOTE | 2018-10-15 09:54 | CP.PCM.PN ---
Subjective - Date & Time of Evaluation Date of Evaluation: 10/15/18 Time of Evaluation: 09:51 - Subjective Subjective: Podiatry progress note - Dr. Lan 43 y/o male patient seen and evaluated at bedside this POD4 I and D of right foot abscess with debridement of infected ulcer and 2nd met bone partial resection and left foot debridement of infected ulcer with left 2nd met bone partial resection. Resting comfortably, in no acute distress. Reports soreness to feet bilaterally. Denies n/v/f/c/sob. Has no other acute complaints. Objective - Vital Signs/Intake and Output Vital Signs (last 24 hours): Temp Pulse Resp BP Pulse Ox 97.6 F 60 20 116/69 96 10/15/18 08:26 10/15/18 08:26 10/15/18 08:26 10/15/18 08:26 10/15/18 08:26 - Medications Medications: Current Medications Acetaminophen (Tylenol 325mg Tab) 650 mg PO Q4 PRN PRN Reason: Pain, Mild (1-3) Atorvastatin Calcium (Lipitor) 20 mg PO HS [facility] Last Admin: 10/14/18 22:55 Dose: 20 mg Cholecalciferol (Vitamin D) 1,000 intlu PO DAILY [facility] Last Admin: 10/15/18 09:43 Dose: 1,000 intlu Docusate Sodium (Colace) 100 mg PO BID [facility] Last Admin: 10/15/18 09:40 Dose: 100 mg Ferrous Sulfate (Feosol) 325 mg PO BID [facility] Last Admin: 10/15/18 09:40 Dose: 325 mg Gabapentin (Neurontin) 300 mg PO BID [facility] Last Admin: 10/15/18 09:43 Dose: 300 mg Sodium Chloride (Sodium Chloride 0.9%) 1,000 mls @ 100 mls/hr IV .Q10H [facility] Last Admin: 10/14/18 23:45 Dose: Not Given Trimethoprim/Sulfamethoxazole (500 mg/ Dextrose) 500 mls @ 250 mls/hr IVPB 0000,0600,1200,1800 [facility]; Protocol Last Admin: 10/15/18 06:03 Dose: 250 mls/hr Meropenem 1 gm/ Sodium (Chloride) 100 mls @ 100 mls/hr IVPB Q8H [facility]; Protocol Last Admin: 10/15/18 04:01 Dose: 100 mls/hr Insulin Detemir (Levemir) 60 units SC HS [facility] Last Admin: 10/14/18 22:33 Dose: 60 units Insulin Human Lispro (Humalog) 0 units SC ACHS [facility] Last Admin: 10/15/18 09:41 Dose: Not Given Insulin Human Lispro (Humalog) 24 units SC AC [facility] Last Admin: 10/14/18 17:12 Dose: 24 units Losartan Potassium (Cozaar) 100 mg PO HS [facility] Last Admin: 10/14/18 22:56 Dose: 100 mg Metformin HCl (Glucophage) 850 mg PO BIDWM [facility] Last Admin: 10/15/18 09:40 Dose: 850 mg Morphine Sulfate (Morphine) 4 mg IVP Q4 PRN PRN Reason: Pain, severe (8-10) Last Admin: 10/14/18 23:46 Dose: 4 mg [id number] Ethyl Esters (Lovaza) 2 gm PO BID [facility] Last Admin: 10/15/18 09:42 Dose: 2 gm Silver Sulfadiazine (Silvadene 1% 20 Gm) 1 ea TOP DAILY [facility] Last Admin: 10/15/18 09:43 Dose: 1 applic - Labs Labs: 10/14/18 08:30 10/14/18 08:30 PT 13.8 Seconds (9.8-13.1) H 10/09/18 05:45 INR 1.2 10/09/18 05:45 APTT 32.5 Seconds (25.6-37.1) 10/09/18 05:45 - Constitutional Appears: Well, Non-toxic, No Acute Distress - Head Exam Head Exam: ATRAUMATIC, NORMOCEPHALIC - Extremities Exam Additional comments: B/l exam Post op dressings intact with minimal sero-sanguinous drainage Cap refill <3 seconds to remaining digits with pulses palpable No pus or purulent drainage at surgical sites b/l Sutures are intact Sites are well coapted Temp gradient warm to warm - Neurological Exam Neurological Exam: Alert, Awake, Oriented x3 - Psychiatric Exam Psychiatric exam: Normal Affect, Normal Mood Assessment and Plan - Assessment and Plan (Free Text) Assessment: 43 y/o male patient POD4 I and D of right foot abscess with debridement of infected ulcer and 2nd met bone partial resection and left foot debridement of infected ulcer with left 2nd met bone partial resection Plan: Patient seen and evaluated Discussed in detail with Dr. Lan Afebrile, absent leukocytosis Packing removed and surgical sites re-dressed with xeroform, DSD F/u pathology F/u cultures Continue IV abx Blood culture 10/10: Stenotrophomonas M. Will continue to follow
--- NOTE | 2018-10-15 11:06 | PN ---
DATE: 10/15/2018 SUBJECTIVE: This is a 43-year-old male with recent uncontrolled type 2 insulin-requiring diabetes, now being followed closely for metabolic management. He presented here with marked hyperglycemic accelerations and a concomitant right foot cellulitis with underlying osteomyelitis, currently receiving IV antibiotic management and local debridement as given. His glycemic levels are fluctuating, but improved and the glucose levels have ranged from 154 to 167 and 177 mg/dL. His chemistry showed a BUN of 18, sodium 135, potassium 5, chloride 98, CO2 of 22, glucose 130 and creatinine 1.3. ASSESSMENT AND PLAN: So at this time, we will continue the same basal and bolus insulin regimen to allow for dose equilibration and keep him on the Humalog given at 24 units t.i.d. before meals as ordered. We will continue the Levemir given as 60 units subcutaneously at bedtime daily as given. We will titrate incrementally as indicated to optimize metabolic control. We will follow and advise accordingly. Stephanie Green MD
[2018-10-15 12:19] LABS: BASO % 0.4 % (0.0-2.0); EOS # 0.2 K/uL (0.0-0.7); EOS % 2.8 % (0.0-4.0); HEMOGLOBIN 9.1 g/dL (12.0-18.0); LYMPH # 1.6 K/uL (1.0-4.3); LYMPH % 24.9 % (20.0-40.0); MEAN CELL VOLUME 81.1 fl (80.0-94.0); MEAN CORPUSCULAR HEMOGLOBIN 26.9 pg (27.0-31.0); MEAN CORPUSCULAR HGB CONC 33.2 g/dL (33.0-37.0); MEAN PLATELET VOLUME 6.5 fl (7.2-11.7); MONO # 0.6 K/uL (0.0-0.8); MONO % 9.5 % (0.0-10.0); NEUT # 4.1 K/uL (1.8-7.0); NEUT % 62.4 % (50.0-75.0); NRBC % 0.1 % (0.0-0.0); RBC 3.37 Mil/uL (4.40-5.90); RED CELL DISTRIBUTION WIDTH 16.2 % (11.5-14.5); WHITE BLOOD COUNT 6.5 K/uL (4.8-10.8)
[2018-10-15 12:55] LABS: ALB/GLOB RATIO 0.8 (1.0-2.1); ALBUMIN 4.1 g/dL (3.5-5.0); ALT/SGPT 33 U/L (21-72); AST/SGOT 46 U/L (17-59); BLOOD UREA NITROGEN 19 mg/dl (9-20); CALCIUM 9.8 mg/dL (8.4-10.2); GFR NON-AFRICAN AMERICAN > 60
[2018-10-15 13:04] LABS: HDL CHOLESTEROL 19 MG/DL (30-70)
[2018-10-15 13:15] LABS: LDL CHOLESTEROL 40 mg/dL (0-129)
[2018-10-15] MEDS: Morphine 4 MG/ML VIAL IVP PRN ×2 (13:46→22:45)
--- NOTE | 2018-10-15 15:03 | CP.PCM.PN ---
Subjective - Date & Time of Evaluation Date of Evaluation: 10/15/18 Time of Evaluation: 12:40 - Subjective Subjective: F/U OM R-L foot. C/O of moderate pain in R foot, minimal in L foot. Objective - Vital Signs/Intake and Output Vital Signs (last 24 hours): Temp Pulse Resp BP Pulse Ox 97.6 F 60 20 116/69 96 10/15/18 08:26 10/15/18 08:26 10/15/18 08:26 10/15/18 08:26 10/15/18 08:26 - Medications Medications: Current Medications Acetaminophen (Tylenol 325mg Tab) 650 mg PO Q4 PRN PRN Reason: Pain, Mild (1-3) Atorvastatin Calcium (Lipitor) 20 mg PO [facility] Last Admin: 10/14/18 22:55 Dose: 20 mg Cholecalciferol (Vitamin D) 1,000 intlu PO DAILY [facility] Last Admin: 10/15/18 09:43 Dose: 1,000 intlu Docusate Sodium (Colace) 100 mg PO BID [facility] Last Admin: 10/15/18 09:40 Dose: 100 mg Ferrous Sulfate (Feosol) 325 mg PO BID [facility] Last Admin: 10/15/18 09:40 Dose: 325 mg Gabapentin (Neurontin) 300 mg PO BID [facility] Last Admin: 10/15/18 09:43 Dose: 300 mg Sodium Chloride (Sodium Chloride 0.9%) 1,000 mls @ 100 mls/hr IV .Q10H [facility] Last Admin: 10/14/18 23:45 Dose: Not Given Trimethoprim/Sulfamethoxazole (500 mg/ Dextrose) 500 mls @ 250 mls/hr IVPB 0000,0600,1200,1800 [facility]; Protocol Last Admin: 10/15/18 06:03 Dose: 250 mls/hr Meropenem 1 gm/ Sodium (Chloride) 100 mls @ 100 mls/hr IVPB Q8H [facility]; Protocol Last Admin: 10/15/18 13:22 Dose: 100 mls/hr Daptomycin 580 mg/ Sodium (Chloride) 100 mls @ 100 mls/hr IV Q24H [facility]; Protocol Stop: 10/20/18 12:01 Last Admin: 10/15/18 14:50 Dose: 100 mls/hr Insulin Detemir (Levemir) 60 units SC [facility] Last Admin: 10/14/18 22:33 Dose: 60 units Insulin Human Lispro (Humalog) 0 units SC ACHS [facility] Last Admin: 10/15/18 12:13 Dose: Not Given Insulin Human Lispro (Humalog) 24 units SC AC [facility] Last Admin: 10/15/18 12:14 Dose: 24 units Losartan Potassium (Cozaar) 100 mg PO HS [facility] Last Admin: 10/14/18 22:56 Dose: 100 mg Metformin HCl (Glucophage) 850 mg PO BIDWM [facility] Last Admin: 10/15/18 09:40 Dose: 850 mg Morphine Sulfate (Morphine) 4 mg IVP Q4 PRN PRN Reason: Pain, severe (8-10) Last Admin: 10/15/18 13:46 Dose: 4 mg [id number]-[id number] Ethyl Esters (Lovaza) 2 gm PO BID [facility] Last Admin: 10/15/18 09:42 Dose: 2 gm Silver Sulfadiazine (Silvadene 1% 20 Gm) 1 ea TOP DAILY [facility] Last Admin: 10/15/18 09:43 Dose: 1 applic - Labs Labs: 10/15/18 12:15 10/15/18 12:15 PT 13.8 Seconds (9.8-13.1) H 10/09/18 05:45 INR 1.2 10/09/18 05:45 APTT 32.5 Seconds (25.6-37.1) 10/09/18 05:45 - Constitutional Appears: Chronically Ill - Head Exam Head Exam: NORMAL INSPECTION - Eye Exam Eye Exam: PERRL - ENT Exam ENT Exam: Normal Exam - Neck Exam Neck Exam: Normal Inspection - Respiratory Exam Respiratory Exam: NORMAL BREATHING PATTERN - Cardiovascular Exam Cardiovascular Exam: REGULAR RHYTHM - GI/Abdominal Exam GI & Abdominal Exam: Soft, Normal Bowel Sounds - Extremities Exam Extremities Exam: Pedal Edema Additional comments: B/L feet dressing, no drainage on surgical site. - Neurological Exam Neurological Exam: Alert, Awake, Oriented x3 - Psychiatric Exam Psychiatric exam: Normal Mood - Skin Skin Exam: Warm Assessment and Plan (1) Osteomyelitis of right foot Status: Acute (2) Abscess and cellulitis Status: Acute (3) Anemia Status: Acute (4) Hyperglycemia Status: Acute (5) Diabetes mellitus Status: Chronic (6) Diabetic neuropathy Status: Chronic (7) Hypertension Status: Chronic (8) Morbid obesity Status: Chronic (9) Dyslipidemia Status: Acute - Assessment and Plan (Free Text) Plan: Continue Daptomycin, Merren, Sulfamethoxazole, Morphine and rest of Tx.
[2018-10-15] MEDS: Sodium Chloride 0.9% 1,000 ML IV SCH ×2 (19:25→20:00)
[2018-10-15] MEDS: Insulin Detemir 100 Units/ml Inj SC SCH (21:51)
[2018-10-16] MEDS: TRIMETHOPRIM IVPB SCH ×4 (00:22→18:37)
[2018-10-16] MEDS: WATER IVPB SCH ×4 (00:22→18:37)
[2018-10-16] MEDS: SULFAMETHOXAZOLE IVPB SCH ×4 (00:22→18:37)
[2018-10-16] MEDS: DEXTROSE 5% IVPB SCH ×4 (00:22→18:37)
[2018-10-16] MEDS: Meropenem 1 GM in Sodium Chloride 0.9% 100 ML IVPB SCH ×4 (04:10→22:00)
[2018-10-16] MEDS: Omega-3-Acid Ethyl Esters 1 GM Cap PO SCH ×2 (09:13→17:03)
[2018-10-16] MEDS: Silver Sulfadiazine 1% Cream (20 gm) TOP SCH (09:15)
[2018-10-16] MEDS: Insulin Lispro (humaLOG) 100 Units/ml Inj SC SCH ×7 (09:15→21:57)
[2018-10-16] MEDS: Cholecalciferol 1,000 INTLU TAB PO SCH (09:15)
--- NOTE | 2018-10-16 11:13 | CP.PCM.PN ---
Subjective - Date & Time of Evaluation Date of Evaluation: 10/16/18 Time of Evaluation: 11:13 - Subjective Subjective: ID note- Patient seen and examined today. pt. denies any fever or chills. is in good spirits. pt. is pod #4 s/p I and D of right foot abscess with debridement of infected ulcer and 2nd met bone partial resection and left foot debridement of infected ulcer with left 2nd met bone partial resection also pt. is s/p infected port removal 2 days ago. Objective - Vital Signs/Intake and Output Vital Signs (last 24 hours): Temp Pulse Resp BP Pulse Ox 97.5 F L 61 20 128/62 96 10/16/18 08:32 10/16/18 08:32 10/16/18 08:32 10/16/18 08:32 10/16/18 08:32 - Medications Medications: Current Medications Acetaminophen (Tylenol 325mg Tab) 650 mg PO Q4 PRN PRN Reason: Pain, Mild (1-3) Atorvastatin Calcium (Lipitor) 20 mg PO HS [facility] Last Admin: 10/15/18 21:51 Dose: 20 mg Cholecalciferol (Vitamin D) 1,000 intlu PO DAILY [facility] Last Admin: 10/16/18 09:15 Dose: 1,000 intlu Docusate Sodium (Colace) 100 mg PO BID [facility] Last Admin: 10/16/18 09:14 Dose: 100 mg Ferrous Sulfate (Feosol) 325 mg PO BID [facility] Last Admin: 10/16/18 09:14 Dose: 325 mg Gabapentin (Neurontin) 300 mg PO BID [facility] Last Admin: 10/16/18 09:14 Dose: 300 mg Sodium Chloride (Sodium Chloride 0.9%) 1,000 mls @ 100 mls/hr IV .Q10H [facility] Last Admin: 10/15/18 20:00 Dose: Not Given Trimethoprim/Sulfamethoxazole (500 mg/ Dextrose) 500 mls @ 250 mls/hr IVPB 0000,0600,1200,1800 [facility]; Protocol Last Admin: 10/16/18 06:37 Dose: 250 mls/hr Meropenem 1 gm/ Sodium (Chloride) 100 mls @ 100 mls/hr IVPB Q8H [facility]; Protocol Last Admin: 10/16/18 04:10 Dose: 100 mls/hr Daptomycin 580 mg/ Sodium (Chloride) 100 mls @ 100 mls/hr IV Q24H [facility]; Protocol Stop: 10/20/18 12:01 Last Admin: 10/15/18 14:50 Dose: 100 mls/hr Insulin Detemir (Levemir) 60 units SC HS [facility] Last Admin: 10/15/18 21:51 Dose: 60 units Insulin Human Lispro (Humalog) 0 units SC ACHS [facility] Last Admin: 10/16/18 09:15 Dose: Not Given Insulin Human Lispro (Humalog) 24 units SC AC [facility] Last Admin: 10/16/18 09:16 Dose: 24 units Losartan Potassium (Cozaar) 100 mg PO HS [facility] Last Admin: 10/15/18 21:50 Dose: 100 mg Metformin HCl (Glucophage) 850 mg PO BIDWM [facility] Last Admin: 10/16/18 09:13 Dose: 850 mg Morphine Sulfate (Morphine) 4 mg IVP Q4 PRN PRN Reason: Pain, severe (8-10) Last Admin: 10/15/18 22:45 Dose: 4 mg [id number] Ethyl Esters (Lovaza) 2 gm PO BID [facility] Last Admin: 10/16/18 09:13 Dose: 2 gm Silver Sulfadiazine (Silvadene 1% 20 Gm) 1 ea TOP DAILY [facility] Last Admin: 10/16/18 09:15 Dose: Not Given - Labs Labs: - Additional Findings Additional findings: - Constitutional Appears: No Acute Distress - Head Exam Head Exam: ATRAUMATIC - Eye Exam Eye Exam: EOMI, PERRL - ENT Exam ENT Exam: Normal Oropharynx - Neck Exam Neck exam: Positive for: Full Rom - Respiratory Exam Respiratory Exam: Clear to Auscultation Bilateral, NORMAL BREATHING PATTERN - Cardiovascular Exam Cardiovascular Exam: RRR, +S1, +S2 - GI/Abdominal Exam GI & Abdominal Exam: Normal Bowel Sounds, Soft Additional comments: NT, ND - Extremities Exam Additional comments: left foot s/p I and D of the abscess ad has sutures in the plantar superior region, no discharge, no erythema, edema much less Right foot s/p I and D of the4 abscess and removal of the necrotic bone region and has sutures in the dorsal distant foot region no discharge no malodor - Neurological Exam Neurological exam: Alert, Oriented x 3 Laboratory Results - last 72 hr 10/13/18 10/13/18 10/14/18 16:02 21:25 05:37 WBC RBC Hgb Hct MCV MCH MCHC RDW Plt Count MPV Neut % (Auto) Lymph % (Auto) Pine % (Auto) Eos % (Auto) Baso % (Auto) Neut # (Auto) Lymph # (Auto) Pine # (Auto) Eos # (Auto) Baso # (Auto) Sodium Potassium Chloride Carbon Dioxide Anion Gap BUN Creatinine Est GFR ( Amer) Est GFR (Non-Af Amer) POC Glucose (mg/dL) 138 H 168 H 111 H Random Glucose Hemoglobin A1c Calcium Phosphorus Magnesium Total Bilirubin AST ALT Alkaline Phosphatase Total Protein Albumin Globulin Albumin/Globulin Ratio Triglycerides Cholesterol LDL Cholesterol Direct HDL Cholesterol Thyroxine (T4) TSH 3rd Generation 10/14/18 10/14/18 10/14/18 08:30 08:30 11:18 WBC 7.7 RBC 3.27 L Hgb 8.9 L Hct 26.4 L MCV 80.9 MCH 27.2 MCHC 33.6 RDW 16.3 H Plt Count 333 MPV Neut % (Auto) Lymph % (Auto) Pine % (Auto) Eos % (Auto) Baso % (Auto) Neut # (Auto) Lymph # (Auto) Pine # (Auto) Eos # (Auto) Baso # (Auto) Sodium 135 Potassium 5.0 Chloride 98 Carbon Dioxide 22 Anion Gap 20 BUN 18 Creatinine 1.3 Est GFR ( Amer) > 60 Est GFR (Non-Af Amer) > 60 POC Glucose (mg/dL) 111 H Random Glucose 130 H Hemoglobin A1c Calcium 9.3 Phosphorus Magnesium Total Bilirubin 0.5 AST 28 ALT 31 Alkaline Phosphatase 105 Total Protein 9.2 H Albumin 3.9 Globulin 5.2 H Albumin/Globulin Ratio 0.8 L Triglycerides Cholesterol LDL Cholesterol Direct HDL Cholesterol Thyroxine (T4) TSH 3rd Generation 10/14/18 10/14/18 10/15/18 15:53 21:53 05:56 WBC RBC Hgb Hct MCV MCH MCHC RDW Plt Count MPV Neut % (Auto) Lymph % (Auto) Pine % (Auto) Eos % (Auto) Baso % (Auto) Neut # (Auto) Lymph # (Auto) Pine # (Auto) Eos # (Auto) Baso # (Auto) Sodium Potassium Chloride Carbon Dioxide Anion Gap BUN Creatinine Est GFR ( Amer) Est GFR (Non-Af Amer) POC Glucose (mg/dL) 177 H 167 H 154 H Random Glucose Hemoglobin A1c Calcium Phosphorus Magnesium Total Bilirubin AST ALT Alkaline Phosphatase Total Protein Albumin Globulin Albumin/Globulin Ratio Triglycerides Cholesterol LDL Cholesterol Direct HDL Cholesterol Thyroxine (T4) TSH 3rd Generation 10/15/18 10/15/18 10/15/18 11:10 12:15 12:15 WBC 6.5 RBC 3.37 L Hgb 9.1 L Hct 27.3 L MCV 81.1 MCH 26.9 L MCHC 33.2 RDW 16.2 H Plt Count 330 MPV 6.5 L Neut % (Auto) 62.4 Lymph % (Auto) 24.9 Pine % (Auto) 9.5 Eos % (Auto) 2.8 Baso % (Auto) 0.4 Neut # (Auto) 4.1 Lymph # (Auto) 1.6 Pine # (Auto) 0.6 Eos # (Auto) 0.2 Baso # (Auto) 0.0 Sodium 135 Potassium 5.1 H Chloride 98 Carbon Dioxide 24 Anion Gap 18 BUN 19 Creatinine 1.3 Est GFR ( Amer) > 60 Est GFR (Non-Af Amer) > 60 POC Glucose (mg/dL) 125 H Random Glucose 103 Hemoglobin A1c Calcium 9.8 Phosphorus 5.6 H Magnesium 2.1 Total Bilirubin 0.5 AST 46 ALT 33 Alkaline Phosphatase 109 Total Protein 9.6 H Albumin 4.1 Globulin 5.5 H Albumin/Globulin Ratio 0.8 L Triglycerides Cholesterol LDL Cholesterol Direct HDL Cholesterol Thyroxine (T4) 4.72 L TSH 3rd Generation 1.06 10/15/18 10/15/18 10/15/18 12:15 12:15 16:06 WBC RBC Hgb Hct MCV MCH MCHC RDW Plt Count MPV Neut % (Auto) Lymph % (Auto) Pine % (Auto) Eos % (Auto) Baso % (Auto) Neut # (Auto) Lymph # (Auto) Pine # (Auto) Eos # (Auto) Baso # (Auto) Sodium Potassium Chloride Carbon Dioxide Anion Gap BUN Creatinine Est GFR ( Amer) Est GFR (Non-Af Amer) POC Glucose (mg/dL) 285 H Random Glucose Hemoglobin A1c 7.9 H Calcium Phosphorus Magnesium Total Bilirubin AST ALT Alkaline Phosphatase Total Protein Albumin Globulin Albumin/Globulin Ratio Triglycerides 161 H Cholesterol 94 LDL Cholesterol Direct 40 HDL Cholesterol 19 L Thyroxine (T4) TSH 3rd Generation 10/15/18 10/16/1819 22:02 05:35 11:08 WBC RBC Hgb Hct MCV MCH MCHC RDW Plt Count MPV Neut % (Auto) Lymph % (Auto) Pine % (Auto) Eos % (Auto) Baso % (Auto) Neut # (Auto) Lymph # (Auto) Pine # (Auto) Eos # (Auto) Baso # (Auto) Sodium Potassium Chloride Carbon Dioxide Anion Gap BUN Creatinine Est GFR ( Amer) Est GFR (Non-Af Amer) POC Glucose (mg/dL) 257 H 255 H 189 H Random Glucose Hemoglobin A1c Calcium Phosphorus Magnesium Total Bilirubin AST ALT Alkaline Phosphatase Total Protein Albumin Globulin Albumin/Globulin Ratio Triglycerides Cholesterol LDL Cholesterol Direct HDL Cholesterol Thyroxine (T4) TSH 3rd Generation Microbiology 10/14/18 14:00 Catheter Tip Catheter Tip Culture - Preliminary 10/15/18 12:15 Blood-Venous Blood Culture - Preliminary NO GROWTH AFTER 24 HOURS 10/13/18 16:00 Blood Blood Culture - Preliminary NO GROWTH AFTER 48 HOURS 10/13/18 16:40 Blood-Venous Blood Culture - Preliminary NO GROWTH AFTER 48 HOURS 10/08/18 20:06 Blood Blood Culture - Final Stenotrophomonas Maltophilia 10/08/18 20:06 Blood Gram Stain - Final 10/10/18 13:45 Blood-Thru Central Line Blood Culture - Final Stenotrophomonas Maltophilia 10/10/18 13:45 Blood-Thru Central Line Gram Stain - Final 10/10/18 13:45 Blood-Venous Blood Culture - Final Stenotrophomonas Maltophilia 10/10/18 13:45 Blood-Venous Gram Stain - Preliminary 10/08/18 19:50 Blood Blood Culture - Final Stenotrophomonas Maltophilia 10/08/18 19:50 Blood Gram Stain - Final 10/08/18 18:00 Foot - Left Gram Stain - Final 10/08/18 18:00 Foot - Left Wound Culture - Final Pseudomonas 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 10/08/18 18:00 Foot - Right Gram Stain - Final 10/08/18 18:00 Foot - Right Wound Culture - Final Escherichia Coli Methicillin Resistant S Aureus Assessment and Plan (1) Abscess Status: Acute (2) Abscess and cellulitis Status: Acute (3) Bacteremia Status: Acute (4) DM type 2, uncontrolled, with lower extremity ulcer Status: Acute (5) Osteomyelitis Status: Acute - Assessment and Plan (Free Text) Assessment: A/P- 43 year old male with multiple medical conditions including b/l plantar diabetic Ulcers and now has right foot cellulitis as well as OM of the right foot as well and GNR bacteremia. pt. is pod #4 POD s/p I and D of right foot abscess with debridement of infected ulcer and 2nd met bone partial resection and left foot debridement of infected ulcer with left 2nd met bone partial resection afebrile 2/12-blood cx- stenotrophomonas x 2 2/14- blood cx- stenoreophomonas x2 one from central line xray of the foor _ OM of right foot as per report foot cx- MRSa and e.coli foot cx- MRSA, esbl e.coli, klebsiella TTE- no mention of any vegetations on report. MRI report- as per report acute OM, abscess and rest please see repor PLan- continue with IV bactrim for stenotrophomonas bacteremia.day #5 Continue with IV meropenem for esbl e.coli infection of the foot day #8 also continue patient on IV daptomycin since he is allergic to vancomycin for MRSA foot infection.day #8 patient will need at least 3 weeks IV abx for stenotrophomas bacteremia and depending on the level of debridement and if all necrotic bone resected then 3-4 weeks of IV antibiotics for the Om of the foot as well. all above d/w patient and he verbalizes full understanding of all above and agrees with above plan of care.
[2018-10-16] MEDS: Pantoprazole 40 mg EC Tab PO SCH (11:39)
--- NOTE | 2018-10-16 13:42 | CP.PCM.PN ---
Subjective - Date & Time of Evaluation Date of Evaluation: 10/16/18 Time of Evaluation: 13:41 - Subjective Subjective: Podiatry progress note - Dr. Lan 43 y/o male patient seen and evaluated at bedside this POD5 I and D of right foot abscess with debridement of infected ulcer and 2nd met bone partial resection and left foot debridement of infected ulcer with left 2nd met bone partial resection. Resting comfortably, in no acute distress. Reports soreness to feet bilaterally. Denies n/v/f/c/sob. Has no other acute complaints. Objective - Vital Signs/Intake and Output Vital Signs (last 24 hours): Temp Pulse Resp BP Pulse Ox 97.5 F L 61 20 128/62 96 10/16/18 08:32 10/16/18 08:32 10/16/18 08:32 10/16/18 08:32 10/16/18 08:32 - Medications Medications: Current Medications Acetaminophen (Tylenol 325mg Tab) 650 mg PO Q4 PRN PRN Reason: Pain, Mild (1-3) Atorvastatin Calcium (Lipitor) 20 mg PO HS [facility] Last Admin: 10/15/18 21:51 Dose: 20 mg Cholecalciferol (Vitamin D) 1,000 intlu PO DAILY [facility] Last Admin: 10/16/18 09:15 Dose: 1,000 intlu Docusate Sodium (Colace) 100 mg PO BID [facility] Last Admin: 10/16/18 09:14 Dose: 100 mg Ferrous Sulfate (Feosol) 325 mg PO BID [facility] Last Admin: 10/16/18 09:14 Dose: 325 mg Gabapentin (Neurontin) 300 mg PO BID [facility] Last Admin: 10/16/18 09:14 Dose: 300 mg Sodium Chloride (Sodium Chloride 0.9%) 1,000 mls @ 100 mls/hr IV .Q10H [facility] Last Admin: 10/15/18 20:00 Dose: Not Given Trimethoprim/Sulfamethoxazole (500 mg/ Dextrose) 500 mls @ 250 mls/hr IVPB 0000,0600,1200,1800 [facility]; Protocol Last Admin: 10/16/18 13:14 Dose: 250 mls/hr Meropenem 1 gm/ Sodium (Chloride) 100 mls @ 100 mls/hr IVPB Q8H [facility]; Protocol Last Admin: 10/16/18 04:10 Dose: 100 mls/hr Daptomycin 580 mg/ Sodium (Chloride) 100 mls @ 100 mls/hr IV Q24H [facility]; Protocol Stop: 10/20/18 12:01 Last Admin: 10/15/18 14:50 Dose: 100 mls/hr Insulin Detemir (Levemir) 60 units SC HS [facility] Last Admin: 10/15/18 21:51 Dose: 60 units Insulin Human Lispro (Humalog) 0 units SC ACHS [facility] Last Admin: 10/16/18 13:15 Dose: Not Given Insulin Human Lispro (Humalog) 24 units SC AC [facility] Last Admin: 10/16/18 13:15 Dose: 24 units Losartan Potassium (Cozaar) 100 mg PO HS [facility] Last Admin: 10/15/18 21:50 Dose: 100 mg Metformin HCl (Glucophage) 850 mg PO BIDWM [facility] Last Admin: 10/16/18 09:13 Dose: 850 mg Morphine Sulfate (Morphine) 4 mg IVP Q4 PRN PRN Reason: Pain, severe (8-10) Last Admin: 10/15/18 22:45 Dose: 4 mg [id number] Ethyl Esters (Lovaza) 2 gm PO BID [facility] Last Admin: 10/16/18 09:13 Dose: 2 gm Ondansetron HCl (Zofran Inj) 4 mg IVP Q6 PRN PRN Reason: Nausea/Vomiting Last Admin: 10/16/18 11:39 Dose: 4 mg Pantoprazole Sodium (Protonix Ec Tab) 40 mg PO DAILY [facility] Last Admin: 10/16/18 11:39 Dose: 40 mg Silver Sulfadiazine (Silvadene 1% 20 Gm) 1 ea TOP DAILY [facility] Last Admin: 10/16/18 09:15 Dose: Not Given - Labs Labs: 10/15/18 12:15 10/15/18 12:15 PT 13.8 Seconds (9.8-13.1) H 10/09/18 05:45 INR 1.2 10/09/18 05:45 APTT 32.5 Seconds (25.6-37.1) 10/09/18 05:45 - Constitutional Appears: Well, Non-toxic, No Acute Distress - Head Exam Head Exam: ATRAUMATIC, NORMOCEPHALIC - Extremities Exam Additional comments: B/l exam Post op dressings intact with minimal sero-sanguinous drainage Cap refill <3 seconds to remaining digits with pulses palpable No pus or purulent drainage at surgical sites b/l Sutures are intact Sites are well coapted Temp gradient warm to warm - Neurological Exam Neurological Exam: Alert, Awake, Oriented x3 - Psychiatric Exam Psychiatric exam: Normal Affect, Normal Mood Assessment and Plan - Assessment and Plan (Free Text) Assessment: 43 y/o male patient POD5 I and D of right foot abscess with debridement of infected ulcer and 2nd met bone partial resection and left foot debridement of infected ulcer with left 2nd met bone partial resection Plan: Patient seen and evaluated Discussed in detail with Dr. Lan Afebrile, absent leukocytosis Packing removed and surgical sites re-dressed with xeroform, DSD F/u pathology F/u cultures Continue IV abx Blood culture 10/10: Stenotrophomonas M. Will continue to follow
--- NOTE | 2018-10-16 14:50 | CP.PCM.PN ---
Subjective - Date & Time of Evaluation Date of Evaluation: 10/16/18 Time of Evaluation: 12:50 - Subjective Subjective: F/U OM R-L foot C/o of pain on feet, R>L, also c/o of nausea. Objective - Vital Signs/Intake and Output Vital Signs (last 24 hours): Temp Pulse Resp BP Pulse Ox 97.5 F L 61 20 128/62 96 10/16/18 08:32 10/16/18 08:32 10/16/18 08:32 10/16/18 08:32 10/16/18 08:32 - Medications Medications: Current Medications Acetaminophen (Tylenol 325mg Tab) 650 mg PO Q4 PRN PRN Reason: Pain, Mild (1-3) Atorvastatin Calcium (Lipitor) 20 mg PO [facility] Last Admin: 10/15/18 21:51 Dose: 20 mg Cholecalciferol (Vitamin D) 1,000 intlu PO DAILY [facility] Last Admin: 10/16/18 09:15 Dose: 1,000 intlu Docusate Sodium (Colace) 100 mg PO BID [facility] Last Admin: 10/16/18 09:14 Dose: 100 mg Ferrous Sulfate (Feosol) 325 mg PO BID [facility] Last Admin: 10/16/18 09:14 Dose: 325 mg Gabapentin (Neurontin) 300 mg PO BID [facility] Last Admin: 10/16/18 09:14 Dose: 300 mg Sodium Chloride (Sodium Chloride 0.9%) 1,000 mls @ 100 mls/hr IV .Q10H [facility] Last Admin: 10/15/18 20:00 Dose: Not Given Trimethoprim/Sulfamethoxazole (500 mg/ Dextrose) 500 mls @ 250 mls/hr IVPB 0000,0600,1200,1800 [facility]; Protocol Last Admin: 10/16/18 13:14 Dose: 250 mls/hr Meropenem 1 gm/ Sodium (Chloride) 100 mls @ 100 mls/hr IVPB Q8H [facility]; Protocol Last Admin: 10/16/18 04:10 Dose: 100 mls/hr Daptomycin 580 mg/ Sodium (Chloride) 100 mls @ 100 mls/hr IV Q24H [facility]; Protocol Stop: 10/20/18 12:01 Last Admin: 10/15/18 14:50 Dose: 100 mls/hr Insulin Detemir (Levemir) 60 units SC [facility] Last Admin: 10/15/18 21:51 Dose: 60 units Insulin Human Lispro (Humalog) 0 units SC ACHS [facility] Last Admin: 10/16/18 13:15 Dose: Not Given Insulin Human Lispro (Humalog) 24 units SC AC [facility] Last Admin: 10/16/18 13:15 Dose: 24 units Losartan Potassium (Cozaar) 100 mg PO HS [facility] Last Admin: 10/15/18 21:50 Dose: 100 mg Metformin HCl (Glucophage) 850 mg PO BIDWM [facility] Last Admin: 10/16/18 09:13 Dose: 850 mg Morphine Sulfate (Morphine) 4 mg IVP Q4 PRN PRN Reason: Pain, severe (8-10) Last Admin: 10/15/18 22:45 Dose: 4 mg [id number]-[id number] Ethyl Esters (Lovaza) 2 gm PO BID [facility] Last Admin: 10/16/18 09:13 Dose: 2 gm Ondansetron HCl (Zofran Inj) 4 mg IVP Q6 PRN PRN Reason: Nausea/Vomiting Last Admin: 10/16/18 11:39 Dose: 4 mg Pantoprazole Sodium (Protonix Ec Tab) 40 mg PO DAILY [facility] Last Admin: 10/16/18 11:39 Dose: 40 mg Silver Sulfadiazine (Silvadene 1% 20 Gm) 1 ea TOP DAILY [facility] Last Admin: 10/16/18 09:15 Dose: Not Given - Labs Labs: 10/15/18 12:15 10/15/18 12:15 PT 13.8 Seconds (9.8-13.1) H 10/09/18 05:45 INR 1.2 10/09/18 05:45 APTT 32.5 Seconds (25.6-37.1) 10/09/18 05:45 - Constitutional Appears: Chronically Ill - Head Exam Head Exam: NORMAL INSPECTION - Eye Exam Eye Exam: PERRL - ENT Exam ENT Exam: Normal Exam - Neck Exam Neck Exam: Normal Inspection - Respiratory Exam Respiratory Exam: NORMAL BREATHING PATTERN - Cardiovascular Exam Cardiovascular Exam: REGULAR RHYTHM - GI/Abdominal Exam GI & Abdominal Exam: Soft, Normal Bowel Sounds - Extremities Exam Extremities Exam: Pedal Edema Additional comments: Dressing R-L foot, no drainage. - Back Exam Back Exam: NORMAL INSPECTION - Neurological Exam Neurological Exam: Alert, Awake, Oriented x3 - Psychiatric Exam Psychiatric exam: Normal Mood - Skin Skin Exam: Warm Assessment and Plan (1) Osteomyelitis of right foot Status: Acute (2) Abscess and cellulitis Status: Acute (3) Anemia Status: Acute (4) Hyperglycemia Status: Acute (5) Diabetes mellitus Status: Chronic (6) Diabetic neuropathy Status: Chronic (7) Hypertension Status: Chronic (8) Morbid obesity Status: Chronic (9) Dyslipidemia Status: Acute - Assessment and Plan (Free Text) Plan: POD #6, ID recommended 3 weeks of IV Abt, continue Daptomycin, Sufamethoxazole, Merren, Zofran and rest of Tx.
[2018-10-16] MEDS: Sodium Chloride 0.9% 1,000 ML IV SCH (16:05)
[2018-10-16] MEDS: Insulin Detemir 100 Units/ml Inj SC SCH (21:56)
--- NOTE | 2018-10-16 23:22 | PN ---
DATE: 10/16/2018 ENDO FOLLOWUP NOTE LOCATION: Room 658. SUBJECTIVE: This is a 43-year-old male with recent uncontrolled type 2 insulin-requiring diabetes, now being followed closely for metabolic management. He also has ongoing IV antibiotic management with local debridement procedures for an underlying right foot cellulitis and osteomyelitis as noted thereof. LABORATORY DATA: His A1c is 7.9%. His latest chemistry showed a BUN of 19, sodium 135, potassium 5.1, chloride 98, CO2 of 24, glucose 103 and creatinine 1.3. PLAN: So, at this time, we will continue the same basal and bolus insulin regimen as given with Humalog given as 24 units subcu t.i.d. before meals as ordered. We will continue the basal insulin given as Levemir at 60 units subcu at bedtime daily as given. We will titrate incremental as indicated to optimize metabolic control. We will follow. Stephanie Green MD
[2018-10-17] MEDS: DEXTROSE 5% IVPB SCH ×4 (01:00→18:06)
[2018-10-17] MEDS: TRIMETHOPRIM IVPB SCH ×4 (01:00→18:06)
[2018-10-17] MEDS: WATER IVPB SCH ×4 (01:00→18:06)
[2018-10-17] MEDS: SULFAMETHOXAZOLE IVPB SCH ×4 (01:00→18:06)
[2018-10-17] MEDS: Morphine 5 MG/ML SYRINGE IVP PRN ×3 (01:08→23:23)
[2018-10-17] MEDS: Sodium Chloride 0.9% 1,000 ML IV SCH ×2 (02:00→21:30)
[2018-10-17] MEDS: Meropenem 1 GM in Sodium Chloride 0.9% 100 ML IVPB SCH ×3 (06:00→21:05)
--- NOTE | 2018-10-17 08:50 | CP.PCM.PN ---
Subjective - Date & Time of Evaluation Date of Evaluation: 10/17/18 Time of Evaluation: 08:47 - Subjective Subjective: Podiatry progress note for Dr. Lan 43 y/o male patient seen and evaluated at bedside this POD6 I and D of right foot abscess with debridement of infected ulcer and 2nd met bone partial resection and left foot debridement of infected ulcer with left 2nd met bone partial resection. Resting comfortably, in no acute distress. Reports soreness to feet bilaterally. Denies n/v/f/c/sob. Has no other acute complaints. Objective - Vital Signs/Intake and Output Vital Signs (last 24 hours): Temp Pulse Resp BP Pulse Ox 97.2 F L 74 20 136/87 99 10/17/18 08:09 10/17/18 08:09 10/17/18 08:09 10/17/18 08:09 10/17/18 08:09 - Medications Medications: Current Medications Acetaminophen (Tylenol 325mg Tab) 650 mg PO Q4 PRN PRN Reason: Pain, Mild (1-3) Atorvastatin Calcium (Lipitor) 20 mg PO HS [facility] Last Admin: 10/16/18 21:55 Dose: 20 mg Cholecalciferol (Vitamin D) 1,000 intlu PO DAILY [facility] Last Admin: 10/16/18 09:15 Dose: 1,000 intlu Docusate Sodium (Colace) 100 mg PO BID [facility] Last Admin: 10/16/18 17:02 Dose: 100 mg Ferrous Sulfate (Feosol) 325 mg PO BID [facility] Last Admin: 10/16/18 17:02 Dose: 325 mg Gabapentin (Neurontin) 300 mg PO BID [facility] Last Admin: 10/16/18 17:03 Dose: 300 mg Sodium Chloride (Sodium Chloride 0.9%) 1,000 mls @ 100 mls/hr IV .Q10H [facility] Last Admin: 10/17/18 02:00 Dose: Not Given Trimethoprim/Sulfamethoxazole (500 mg/ Dextrose) 500 mls @ 250 mls/hr IVPB 0000,0600,1200,1800 [facility]; Protocol Last Admin: 10/17/18 06:07 Dose: Not Given Meropenem 1 gm/ Sodium (Chloride) 100 mls @ 100 mls/hr IVPB Q8H [facility]; Protocol Last Admin: 10/17/18 06:00 Dose: Not Given Daptomycin 580 mg/ Sodium (Chloride) 100 mls @ 100 mls/hr IV Q24H [facility]; Protocol Stop: 10/20/18 12:01 Last Admin: 10/16/18 16:05 Dose: 100 mls/hr Insulin Detemir (Levemir) 60 units SC HS [facility] Last Admin: 10/16/18 21:56 Dose: 60 units Insulin Human Lispro (Humalog) 0 units SC ACHS [facility] Last Admin: 10/16/18 21:57 Dose: 3 u Insulin Human Lispro (Humalog) 24 units SC AC [facility] Last Admin: 10/16/18 17:04 Dose: 24 units Losartan Potassium (Cozaar) 100 mg PO HS [facility] Last Admin: 10/16/18 21:55 Dose: 100 mg Metformin HCl (Glucophage) 850 mg PO BIDWM [facility] Last Admin: 10/16/18 17:02 Dose: 850 mg Morphine Sulfate (Morphine) 4 mg IVP Q4 PRN PRN Reason: Pain, severe (8-10) Last Admin: 10/17/18 01:08 Dose: 4 mg [id number]-[id number] Ethyl Esters (Lovaza) 2 gm PO BID [facility] Last Admin: 10/16/18 17:03 Dose: 2 gm Ondansetron HCl (Zofran Inj) 4 mg IVP Q6 PRN PRN Reason: Nausea/Vomiting Last Admin: 10/16/18 21:53 Dose: 4 mg Pantoprazole Sodium (Protonix Ec Tab) 40 mg PO DAILY [facility] Last Admin: 10/16/18 11:39 Dose: 40 mg Silver Sulfadiazine (Silvadene 1% 20 Gm) 1 ea TOP DAILY [facility] Last Admin: 10/16/18 09:15 Dose: Not Given - Labs Labs: 10/15/18 12:15 10/15/18 12:15 PT 13.8 Seconds (9.8-13.1) H 10/09/18 05:45 INR 1.2 10/09/18 05:45 APTT 32.5 Seconds (25.6-37.1) 10/09/18 05:45 - Constitutional Appears: Well, Non-toxic, No Acute Distress - Head Exam Head Exam: ATRAUMATIC, NORMOCEPHALIC - Extremities Exam Additional comments: B/l exam Post op dressings intact with minimal sero-sanguinous drainage Cap refill <3 seconds to remaining digits with pulses palpable No pus or purulent drainage at surgical sites b/l Sutures are intact Sites are well coapted Temp gradient warm to warm - Neurological Exam Neurological Exam: Alert, Awake, Oriented x3 - Psychiatric Exam Psychiatric exam: Normal Affect, Normal Mood Assessment and Plan - Assessment and Plan (Free Text) Assessment: 43 y/o male patient POD6 I and D of right foot abscess with debridement of infected ulcer and 2nd met bone partial resection and left foot debridement of infected ulcer with left 2nd met bone partial resection Plan: Patient seen and evaluated Discussed in detail with Dr. Lan Afebrile, absent leukocytosis Packing removed and surgical sites re-dressed with xeroform, DSD Continue IV abx as per Infectious Disease recommendation- recommending 3 weeks of IV Abx Repeat blood cultures were negative Podiatry will change the left dressing to a fiberglass cast to prevent patient from walking and to allow wounds to heal
[2018-10-17] MEDS: Insulin Lispro (humaLOG) 100 Units/ml Inj SC SCH ×7 (09:00→22:45)
[2018-10-17] MEDS: Omega-3-Acid Ethyl Esters 1 GM Cap PO SCH ×2 (09:02→17:08)
[2018-10-17] MEDS: Silver Sulfadiazine 1% Cream (20 gm) TOP SCH (09:03)
[2018-10-17] MEDS: Cholecalciferol 1,000 INTLU TAB PO SCH (09:03)
[2018-10-17] MEDS: Pantoprazole 40 mg EC Tab PO SCH (09:03)
[2018-10-17 13:52] LABS: HEMOGLOBIN 8.8 g/dL (12.0-18.0); MEAN CELL VOLUME 80.5 fl (80.0-94.0); MEAN CORPUSCULAR HEMOGLOBIN 26.9 pg (27.0-31.0); MEAN CORPUSCULAR HGB CONC 33.5 g/dL (33.0-37.0); RBC 3.26 Mil/uL (4.40-5.90); RED CELL DISTRIBUTION WIDTH 16.3 % (11.5-14.5); WHITE BLOOD COUNT 4.7 K/uL (4.8-10.8)
[2018-10-17 14:04] LABS: BLOOD UREA NITROGEN 17 mg/dl (9-20); CALCIUM 9.1 mg/dL (8.4-10.2); GFR NON-AFRICAN AMERICAN 55
[2018-10-17] MEDS ORDERED: Sod Polystyrene Sulf 15 gm/60 ml Susp PO ONE (14:48)
--- NOTE | 2018-10-17 18:10 | PN ---
DATE: 10/17/2018 ENDOCRINOLOGY FOLLOWUP NOTE LOCATION: Room 658. SUBJECTIVE: This is a 43-year-old male with recent uncontrolled type 2 insulin-requiring diabetes with ongoing IV antibiotic management for right lower extremity cellulitis and underlying osteomyelitis. His glycemic levels are fluctuating but much improved as noted overnight and have ranged from 184 to 197 mg/dL. It was 116-318 at bedtime last night. His chemistry showed a BUN of 17, sodium 133, potassium 5.3, chloride 99, CO2 of 20, glucose 197 and creatinine of 1.4. So at this time, we will continue the modified basal and bolus insulin regimen to allow for dose equilibration and keep him on the Levemir given as 60 units subcutaneous at bedtime daily as given. We will continue the bolus insulin before meals with Humalog given as 14 units t.i.d. before meals as ordered. We will obtain serial chemistries and supplement accordingly as needed. We will follow. Stephanie Green MD
--- NOTE | 2018-10-17 18:25 | CP.PCM.PN ---
Subjective - Date & Time of Evaluation Date of Evaluation: 10/17/18 Time of Evaluation: 15:00 - Subjective Subjective: F/U OM R-L foot Pain R foot, no pain L foot Objective - Vital Signs/Intake and Output Vital Signs (last 24 hours): Temp Pulse Resp BP Pulse Ox 97.8 F 74 20 125/66 95 10/17/18 16:37 10/17/18 16:37 10/17/18 16:37 10/17/18 16:37 10/17/18 16:37 - Medications Medications: Current Medications Acetaminophen (Tylenol 325mg Tab) 650 mg PO Q4 PRN PRN Reason: Pain, Mild (1-3) Atorvastatin Calcium (Lipitor) 20 mg PO HS [facility] Last Admin: 10/16/18 21:55 Dose: 20 mg Cholecalciferol (Vitamin D) 1,000 intlu PO DAILY [facility] Last Admin: 10/17/18 09:03 Dose: 1,000 intlu Docusate Sodium (Colace) 100 mg PO BID [facility] Last Admin: 10/17/18 17:06 Dose: 100 mg Ferrous Sulfate (Feosol) 325 mg PO BID [facility] Last Admin: 10/17/18 17:06 Dose: 325 mg Gabapentin (Neurontin) 300 mg PO BID [facility] Last Admin: 10/17/18 17:09 Dose: 300 mg Sodium Chloride (Sodium Chloride 0.9%) 1,000 mls @ 100 mls/hr IV .Q10H [facility] Last Admin: 10/17/18 02:00 Dose: Not Given Trimethoprim/Sulfamethoxazole (500 mg/ Dextrose) 500 mls @ 250 mls/hr IVPB 0000,0600,1200,1800 [facility]; Protocol Last Admin: 10/17/18 18:06 Dose: 250 mls/hr Meropenem 1 gm/ Sodium (Chloride) 100 mls @ 100 mls/hr IVPB Q8H [facility]; Protocol Last Admin: 10/17/18 12:04 Dose: 100 mls/hr Daptomycin 580 mg/ Sodium (Chloride) 100 mls @ 100 mls/hr IV Q24H [facility]; Protocol Stop: 10/20/18 12:01 Last Admin: 10/17/18 13:05 Dose: 100 mls/hr Insulin Detemir (Levemir) 60 units SC [facility] Last Admin: 10/16/18 21:56 Dose: 60 units Insulin Human Lispro (Humalog) 0 units SC ACHS [facility] Last Admin: 10/17/18 17:07 Dose: Not Given Insulin Human Lispro (Humalog) 24 units SC AC [facility] Last Admin: 10/17/18 17:08 Dose: 24 units Losartan Potassium (Cozaar) 100 mg PO HS [facility] Last Admin: 10/16/18 21:55 Dose: 100 mg Metformin HCl (Glucophage) 850 mg PO BIDWM [facility] Last Admin: 10/17/18 17:07 Dose: 850 mg Morphine Sulfate (Morphine) 4 mg IVP Q4 PRN PRN Reason: Pain, severe (8-10) Last Admin: 10/17/18 12:57 Dose: 4 mg Wxyjs-9-[id number] Ethyl Esters (Lovaza) 2 gm PO BID [facility] Last Admin: 10/17/18 17:08 Dose: 2 gm Ondansetron HCl (Zofran Inj) 4 mg IVP Q6 PRN PRN Reason: Nausea/Vomiting Last Admin: 10/16/18 21:53 Dose: 4 mg Pantoprazole Sodium (Protonix Ec Tab) 40 mg PO DAILY [facility] Last Admin: 10/17/18 09:03 Dose: 40 mg Silver Sulfadiazine (Silvadene 1% 20 Gm) 1 ea TOP DAILY [facility] Last Admin: 10/17/18 09:03 Dose: 1 applic - Labs Labs: 10/17/18 13:49 10/17/18 13:49 PT 13.8 Seconds (9.8-13.1) H 10/09/18 05:45 INR 1.2 10/09/18 05:45 APTT 32.5 Seconds (25.6-37.1) 10/09/18 05:45 - Constitutional Appears: Chronically Ill - Head Exam Head Exam: NORMAL INSPECTION - Eye Exam Eye Exam: PERRL - ENT Exam ENT Exam: Normal Exam - Neck Exam Neck Exam: Normal Inspection - Respiratory Exam Respiratory Exam: NORMAL BREATHING PATTERN - Cardiovascular Exam Cardiovascular Exam: REGULAR RHYTHM - GI/Abdominal Exam GI & Abdominal Exam: Soft, Normal Bowel Sounds - Extremities Exam Additional comments: B/L feet dressing, no drainage on surgical site - Neurological Exam Neurological Exam: Alert, Awake, Oriented x3 - Psychiatric Exam Psychiatric exam: Normal Mood - Skin Skin Exam: Warm Assessment and Plan (1) Osteomyelitis of right foot Status: Acute (2) Abscess and cellulitis Status: Acute (3) Anemia Status: Acute (4) Hyperglycemia Status: Acute (5) Diabetes mellitus Status: Chronic (6) Diabetic neuropathy Status: Chronic (7) Hypertension Status: Chronic (8) Morbid obesity Status: Chronic (9) Dyslipidemia Status: Acute - Assessment and Plan (Free Text) Plan: continue Vanco , Ertapenem, Bactrim, Morphine and rest of Tx, Social Service working for DD Patient to have completion of IV Abt treatment at home for 4 more weeks
[2018-10-17] MEDS: Insulin Detemir 100 Units/ml Inj SC SCH (22:56)
[2018-10-18] MEDS: WATER IVPB SCH ×3 (00:20→12:14)
[2018-10-18] MEDS: TRIMETHOPRIM IVPB SCH ×3 (00:20→12:14)
[2018-10-18] MEDS: DEXTROSE 5% IVPB SCH ×3 (00:20→12:14)
[2018-10-18] MEDS: SULFAMETHOXAZOLE IVPB SCH ×3 (00:20→12:14)
[2018-10-18] MEDS: Meropenem 1 GM in Sodium Chloride 0.9% 100 ML IVPB SCH (04:44)
[2018-10-18 08:26] VITALS: RESP 20
[2018-10-18] MEDS: Morphine 5 MG/ML SYRINGE IVP PRN (08:31)
[2018-10-18] MEDS: Insulin Lispro (humaLOG) 100 Units/ml Inj SC SCH ×6 (10:14→18:12)
[2018-10-18] MEDS: Omega-3-Acid Ethyl Esters 1 GM Cap PO SCH ×2 (10:16→18:13)
--- NOTE | 2018-10-18 10:16 | CP.PCM.PN ---
Subjective - Date & Time of Evaluation Date of Evaluation: 10/18/18 Time of Evaluation: 10:16 - Subjective Subjective: ID Note- Patietn seen and examined today. He denies any fever or chills. He has new picc line now on right arm. Patient states he does not wish to go to [facility] because he has 2 dogs at home and there is no one that can help take care of his dogs and he wants to do home IV antibiotics. He states he has done home IV antibiotic infusion in the past and he knows how to do it. he promises to f/u with his automotive lube technician at the wound clinic and he was advised to also f/u with me as outpatient. Objective - Vital Signs/Intake and Output Vital Signs (last 24 hours): Temp Pulse Resp BP Pulse Ox 98.1 F 79 20 117/71 98 10/18/18 08:26 10/18/18 08:26 10/18/18 08:26 10/18/18 08:26 10/18/18 08:26 - Medications Medications: Current Medications Acetaminophen (Tylenol 325mg Tab) 650 mg PO Q4 PRN PRN Reason: Pain, Mild (1-3) Atorvastatin Calcium (Lipitor) 20 mg PO HS [facility] Last Admin: 10/17/18 22:47 Dose: 20 mg Cholecalciferol (Vitamin D) 1,000 intlu PO DAILY [facility] Last Admin: 10/17/18 09:03 Dose: 1,000 intlu Docusate Sodium (Colace) 100 mg PO BID [facility] Last Admin: 10/17/18 17:06 Dose: 100 mg Ferrous Sulfate (Feosol) 325 mg PO BID [facility] Last Admin: 10/17/18 17:06 Dose: 325 mg Gabapentin (Neurontin) 300 mg PO BID [facility] Last Admin: 10/17/18 17:09 Dose: 300 mg Sodium Chloride (Sodium Chloride 0.9%) 1,000 mls @ 100 mls/hr IV .Q10H [facility] Last Admin: 10/17/18 21:30 Dose: Not Given Trimethoprim/Sulfamethoxazole (500 mg/ Dextrose) 500 mls @ 250 mls/hr IVPB 0000,0600,1200,1800 [facility]; Protocol Last Admin: 10/18/18 05:55 Dose: 250 mls/hr Meropenem 1 gm/ Sodium (Chloride) 100 mls @ 100 mls/hr IVPB Q8H [facility]; Protocol Last Admin: 10/18/18 04:44 Dose: 100 mls/hr Daptomycin 580 mg/ Sodium (Chloride) 100 mls @ 100 mls/hr IV Q24H [facility]; Protocol Stop: 10/20/18 12:01 Last Admin: 10/17/18 13:05 Dose: 100 mls/hr Insulin Detemir (Levemir) 60 units SC HS [facility] Last Admin: 10/17/18 22:56 Dose: 60 units Insulin Human Lispro (Humalog) 0 units SC ACHS [facility] Last Admin: 10/17/18 22:45 Dose: Not Given Insulin Human Lispro (Humalog) 24 units SC AC [facility] Last Admin: 10/17/18 17:08 Dose: 24 units Losartan Potassium (Cozaar) 100 mg PO HS [facility] Last Admin: 10/17/18 22:47 Dose: 100 mg Metformin HCl (Glucophage) 850 mg PO BIDWM [facility] Last Admin: 10/17/18 17:07 Dose: 850 mg Morphine Sulfate (Morphine) 4 mg IVP Q4 PRN PRN Reason: Pain, severe (8-10) Last Admin: 10/18/18 08:31 Dose: 4 mg Asxfb-0-Gydt Ethyl Esters (Lovaza) 2 gm PO BID [facility] Last Admin: 10/17/18 17:08 Dose: 2 gm Ondansetron HCl (Zofran Inj) 4 mg IVP Q6 PRN PRN Reason: Nausea/Vomiting Last Admin: 10/16/18 21:53 Dose: 4 mg Pantoprazole Sodium (Protonix Ec Tab) 40 mg PO DAILY [facility] Last Admin: 10/17/18 09:03 Dose: 40 mg Silver Sulfadiazine (Silvadene 1% 20 Gm) 1 ea TOP DAILY [facility] Last Admin: 10/17/18 09:03 Dose: 1 applic - Labs Labs: - Additional Findings Additional findings: - Constitutional Appears: No Acute Distress - Head Exam Head Exam: ATRAUMATIC - Eye Exam Eye Exam: EOMI, PERRL - ENT Exam ENT Exam: Normal Oropharynx - Neck Exam Neck exam: Positive for: Full Rom - Respiratory Exam Respiratory Exam: Clear to Auscultation Bilateral, NORMAL BREATHING PATTERN - Cardiovascular Exam Cardiovascular Exam: RRR, +S1, +S2 - GI/Abdominal Exam GI & Abdominal Exam: Normal Bowel Sounds, Soft Additional comments: NT, ND - Extremities Exam Additional comments: left foot s/p I and D of the abscess ad has sutures in the plantar superior region, no discharge, no erythema, edema much less Right foot s/p I and D of the4 abscess and removal of the necrotic bone region and has sutures in the dorsal distant foot region no discharge no malodor - Neurological Exam Neurological exam: Alert, Oriented x 3 Laboratory Results - last 72 hr 10/15/18 10/15/18 10/15/18 12:15 16:06 22:02 WBC RBC Hgb Hct MCV MCH MCHC RDW Plt Count ESR Sodium Potassium Chloride Carbon Dioxide Anion Gap BUN Creatinine Est GFR ( Amer) Est GFR (Non-Af Amer) POC Glucose (mg/dL) 285 H 257 H Random Glucose Hemoglobin A1c 7.9 H Calcium Total Bilirubin AST ALT Alkaline Phosphatase Total Creatine Kinase Total Protein Albumin Globulin Albumin/Globulin Ratio 10/16/18 10/16/18 10/16/18 05:35 11:08 15:54 WBC RBC Hgb Hct MCV MCH MCHC RDW Plt Count ESR Sodium Potassium Chloride Carbon Dioxide Anion Gap BUN Creatinine Est GFR ( Amer) Est GFR (Non-Af Amer) POC Glucose (mg/dL) 255 H 189 H 162 H Random Glucose Hemoglobin A1c Calcium Total Bilirubin AST ALT Alkaline Phosphatase Total Creatine Kinase Total Protein Albumin Globulin Albumin/Globulin Ratio 10/16/18 10/17/18 10/17/18 21:53 02:37 05:56 WBC RBC Hgb Hct MCV MCH MCHC RDW Plt Count ESR Sodium Potassium Chloride Carbon Dioxide Anion Gap BUN Creatinine Est GFR ( Amer) Est GFR (Non-Af Amer) POC Glucose (mg/dL) 318 H 160 H 184 H Random Glucose Hemoglobin A1c Calcium Total Bilirubin AST ALT Alkaline Phosphatase Total Creatine Kinase Total Protein Albumin Globulin Albumin/Globulin Ratio 10/17/18 10/17/18 10/17/18 06:15 06:15 11:01 WBC RBC Hgb Hct MCV MCH MCHC RDW Plt Count ESR > 120 H Sodium Potassium Chloride Carbon Dioxide Anion Gap BUN Creatinine Est GFR ( Amer) Est GFR (Non-Af Amer) POC Glucose (mg/dL) 195 H Random Glucose Hemoglobin A1c Calcium Total Bilirubin AST ALT Alkaline Phosphatase Total Creatine Kinase 59 Total Protein Albumin Globulin Albumin/Globulin Ratio 10/17/18 10/17/18 10/17/18 13:49 13:49 15:52 WBC 4.7 L RBC 3.26 L Hgb 8.8 L Hct 26.2 L MCV 80.5 MCH 26.9 L MCHC 33.5 RDW 16.3 H Plt Count 315 ESR Sodium 133 Potassium 5.3 H Chloride 99 Carbon Dioxide 20 L Anion Gap 19 BUN 17 Creatinine 1.4 Est GFR ( Amer) > 60 Est GFR (Non-Af Amer) 55 POC Glucose (mg/dL) 252 H Random Glucose 197 H Hemoglobin A1c Calcium 9.1 Total Bilirubin AST ALT Alkaline Phosphatase Total Creatine Kinase Total Protein Albumin Globulin Albumin/Globulin Ratio 10/17/18 10/18/18 10/18/18 22:27 05:25 10:35 WBC 5.0 RBC 3.31 L Hgb 8.8 L Hct 26.9 L MCV 81.2 MCH 26.7 L MCHC 32.9 L RDW 16.3 H Plt Count 303 ESR Sodium Potassium Chloride Carbon Dioxide Anion Gap BUN Creatinine Est GFR ( Amer) Est GFR (Non-Af Amer) POC Glucose (mg/dL) 219 H 150 H Random Glucose Hemoglobin A1c Calcium Total Bilirubin AST ALT Alkaline Phosphatase Total Creatine Kinase Total Protein Albumin Globulin Albumin/Globulin Ratio 10/18/18 10/18/18 10:35 11:37 WBC RBC Hgb Hct MCV MCH MCHC RDW Plt Count ESR Sodium 133 Potassium 5.3 H Chloride 99 Carbon Dioxide 23 Anion Gap 16 BUN 14 Creatinine 1.1 Est GFR ( Amer) > 60 Est GFR (Non-Af Amer) > 60 POC Glucose (mg/dL) 195 H Random Glucose 136 H Hemoglobin A1c Calcium 9.2 Total Bilirubin 0.2 AST 44 ALT 27 Alkaline Phosphatase 125 Total Creatine Kinase Total Protein 8.9 H Albumin 3.9 Globulin 5.0 H Albumin/Globulin Ratio 0.8 L Microbiology 10/15/18 12:15 Blood-Venous Blood Culture - Preliminary NO GROWTH AFTER 3 DAYS 10/14/18 14:00 Catheter Tip Catheter Tip Culture - Final Stenotrophomonas Maltophilia 10/13/18 16:40 Blood-Venous Blood Culture - Preliminary NO GROWTH AFTER 4 DAYS 10/13/18 16:00 Blood Blood Culture - Preliminary NO GROWTH AFTER 4 DAYS 10/08/18 20:06 Blood Blood Culture - Final Stenotrophomonas Maltophilia 10/08/18 20:06 Blood Gram Stain - Final 10/10/18 13:45 Blood-Thru Central Line Blood Culture - Final Stenotrophomonas Maltophilia 10/10/18 13:45 Blood-Thru Central Line Gram Stain - Final 10/10/18 13:45 Blood-Venous Blood Culture - Final Stenotrophomonas Maltophilia 10/10/18 13:45 Blood-Venous Gram Stain - Preliminary 10/08/18 19:50 Blood Blood Culture - Final Stenotrophomonas Maltophilia 10/08/18 19:50 Blood Gram Stain - Final 10/08/18 18:00 Foot - Left Gram Stain - Final 10/08/18 18:00 Foot - Left Wound Culture - Final Pseudomonas 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 10/08/18 18:00 Foot - Right Gram Stain - Final 10/08/18 18:00 Foot - Right Wound Culture - Final Escherichia Coli Methicillin Resistant S Aureus Assessment and Plan (1) Abscess Status: Acute (2) Abscess and cellulitis Status: Acute (3) Bacteremia Status: Acute (4) DM type 2, uncontrolled, with lower extremity ulcer Status: Acute (5) Osteomyelitis Status: Acute - Assessment and Plan (Free Text) Assessment: A/P- 43 year old male with multiple medical conditions including b/l plantar diabetic Ulcers and now has right foot cellulitis as well as OM of the right foot as well and GNR bacteremia. pt. is pod #5 POD s/p I and D of right foot abscess with debridement of infected ulcer and 2nd met bone partial resection and left foot debridement of infected ulcer with left 2nd met bone partial resection afebrile 2/12-blood cx- stenotrophomonas x 2 2/14- blood cx- stenoreophomonas x2 one from central line port tip cx- stenotrophomonas repeat blood cx- neg x 3 xray of the foor _ OM of right foot as per report foot cx- MRSa and e.coli foot cx- MRSA, esbl e.coli, klebsiella TTE- no mention of any vegetations on report. PLan- continue with IV bactrim for stenotrophomonas bacteremia.day #6. patient will need total 21 days of IV bactrim 500 mg every 6 hours.( 15 more days) has completed 9 days of IV meropnem for ESBL e.coli foot infection/OM. advise to switch it to ertapenem since it's once daily and easier to administer at home . hence ertapenem 1 gram IV daily for another 30 days to complete total of 40 days of Iv abx for e.coli OM. also continue patient on IV daptomycin since he is allergic to vancomycin for MRSA foot infection.day #9. needs 30 more days of IV daptomycin 580 mg once a day. advise to check weekly cpk while on daptomycin. advise to also check once a week cbc, cmp and ESR. Dariana was advised to f/u with his automotive lube technician and with me as outpatient. Patient was advised if he develops any rash or itching or fever or sob to immediately notify his PMD or come to ER. all above d/w patient and he verbalizes full understanding of all above and agrees with above plan of care. All above was also d/w PLANNING ANALYST taking care of the patient today Porfirio Traylor in detail.
[2018-10-18] MEDS: Pantoprazole 40 mg EC Tab PO SCH (10:17)
[2018-10-18] MEDS: Cholecalciferol 1,000 INTLU TAB PO SCH (10:17)
[2018-10-18 10:39] LABS: HEMOGLOBIN 8.8 g/dL (12.0-18.0); MEAN CELL VOLUME 81.2 fl (80.0-94.0); MEAN CORPUSCULAR HEMOGLOBIN 26.7 pg (27.0-31.0); MEAN CORPUSCULAR HGB CONC 32.9 g/dL (33.0-37.0); RBC 3.31 Mil/uL (4.40-5.90); RED CELL DISTRIBUTION WIDTH 16.3 % (11.5-14.5)
[2018-10-18 11:18] LABS: ALB/GLOB RATIO 0.8 (1.0-2.1); ALBUMIN 3.9 g/dL (3.5-5.0); ALT/SGPT 27 U/L (21-72); AST/SGOT 44 U/L (17-59); BLOOD UREA NITROGEN 14 mg/dl (9-20); CALCIUM 9.2 mg/dL (8.4-10.2); GFR NON-AFRICAN AMERICAN > 60
--- NOTE | 2018-10-18 11:44 | RAD ---
Date of service: 10/18/2018 HISTORY: picc verify COMPARISON: No prior. FINDINGS: LUNGS: No active pulmonary disease. PLEURA: No significant pleural effusion identified, no pneumothorax apparent. CARDIOVASCULAR: No aortic atherosclerotic calcification present. Normal cardiac size. No congestive change. Right PICC catheter terminates in the region of the superior vena cava above the level of the cavoatrial junction. OSSEOUS STRUCTURES: No significant abnormalities. VISUALIZED UPPER ABDOMEN: Normal. OTHER FINDINGS: None. IMPRESSION: New right PICC catheter terminates in the superior vena cava.
--- NOTE | 2018-10-18 11:58 | PN ---
DATE: 10/18/2018 LOCATION: Room 658. SUBJECTIVE: This is a 43-year-old male with recent uncontrolled type 2 insulin-requiring diabetes, now being followed closely for metabolic management. His glycemic levels are fluctuating but improved and the glucose levels overnight have ranged from 150 to 219 mg/dL. His chemistry showed a BUN of 17, sodium 133, potassium 5.3, chloride 99, CO2 of 20, glucose 197 and creatinine 1.4. So, at this time, we will continue the same basal and bolus insulin regimen as given with Humalog given as 24 units subcu t.i.d. before meals as ordered. We will also continue the same basal insulin given as Levemir at 60 units subcu at bedtime daily as given. We will titrate incrementally as indicated to optimize metabolic control. We will follow and advise accordingly. Stephanie Green MD
[2018-10-18] MEDS ORDERED: Sod Polystyrene Sulf 15 gm/60 ml Susp PO ONE (12:03)
--- NOTE | 2018-10-18 12:38 | CP.PCM.PN ---
Subjective - Date & Time of Evaluation Date of Evaluation: 10/18/18 Time of Evaluation: 12:35 - Subjective Subjective: Podiatry progress note for Dr. Lan 43 y/o male patient seen and evaluated at bedside this POD7 I and D of right foot abscess with debridement of infected ulcer and 2nd met bone partial resection and left foot debridement of infected ulcer with left 2nd met bone partial resection. Resting comfortably, in no acute distress. Reports soreness to feet bilaterally. Denies n/v/f/c/sob. Has no other acute complaints. Objective - Vital Signs/Intake and Output Vital Signs (last 24 hours): Temp Pulse Resp BP Pulse Ox 98.1 F 79 20 117/71 98 10/18/18 08:26 10/18/18 08:26 10/18/18 08:26 10/18/18 08:26 10/18/18 08:26 - Medications Medications: Current Medications Acetaminophen (Tylenol 325mg Tab) 650 mg PO Q4 PRN PRN Reason: Pain, Mild (1-3) Atorvastatin Calcium (Lipitor) 20 mg PO HS [facility] Last Admin: 10/17/18 22:47 Dose: 20 mg Cholecalciferol (Vitamin D) 1,000 intlu PO DAILY [facility] Last Admin: 10/18/18 10:17 Dose: 1,000 intlu Docusate Sodium (Colace) 100 mg PO BID [facility] Last Admin: 10/18/18 10:13 Dose: 100 mg Ferrous Sulfate (Feosol) 325 mg PO BID [facility] Last Admin: 10/18/18 10:14 Dose: 325 mg Gabapentin (Neurontin) 300 mg PO BID [facility] Last Admin: 10/18/18 10:16 Dose: 300 mg Sodium Chloride (Sodium Chloride 0.9%) 1,000 mls @ 100 mls/hr IV .Q10H [facility] Last Admin: 10/17/18 21:30 Dose: Not Given Trimethoprim/Sulfamethoxazole (500 mg/ Dextrose) 500 mls @ 250 mls/hr IVPB 0000,0600,1200,1800 [facility]; Protocol Last Admin: 10/18/18 12:14 Dose: 250 mls/hr Meropenem 1 gm/ Sodium (Chloride) 100 mls @ 100 mls/hr IVPB Q8H [facility]; Protocol Last Admin: 10/18/18 04:44 Dose: 100 mls/hr Daptomycin 580 mg/ Sodium (Chloride) 100 mls @ 100 mls/hr IV Q24H [facility]; Protocol Stop: 10/20/18 12:01 Last Admin: 10/17/18 13:05 Dose: 100 mls/hr Insulin Detemir (Levemir) 60 units SC HS [facility] Last Admin: 10/17/18 22:56 Dose: 60 units Insulin Human Lispro (Humalog) 0 units SC ACHS [facility] Last Admin: 10/18/18 12:15 Dose: Not Given Insulin Human Lispro (Humalog) 24 units SC AC [facility] Last Admin: 10/18/18 12:16 Dose: 24 units Losartan Potassium (Cozaar) 100 mg PO HS [facility] Last Admin: 10/17/18 22:47 Dose: 100 mg Metformin HCl (Glucophage) 850 mg PO BIDWM [facility] Last Admin: 10/18/18 10:14 Dose: 850 mg Morphine Sulfate (Morphine) 4 mg IVP Q4 PRN PRN Reason: Pain, severe (8-10) Last Admin: 10/18/18 08:31 Dose: 4 mg Nypuz-1-Mjgn Ethyl Esters (Lovaza) 2 gm PO BID [facility] Last Admin: 10/18/18 10:16 Dose: 2 gm Ondansetron HCl (Zofran Inj) 4 mg IVP Q6 PRN PRN Reason: Nausea/Vomiting Last Admin: 10/16/18 21:53 Dose: 4 mg Pantoprazole Sodium (Protonix Ec Tab) 40 mg PO DAILY [facility] Last Admin: 10/18/18 10:17 Dose: 40 mg Silver Sulfadiazine (Silvadene 1% 20 Gm) 1 ea TOP DAILY [facility] Last Admin: 10/17/18 09:03 Dose: 1 applic - Labs Labs: 10/18/18 10:35 10/18/18 10:35 PT 13.8 Seconds (9.8-13.1) H 10/09/18 05:45 INR 1.2 10/09/18 05:45 APTT 32.5 Seconds (25.6-37.1) 10/09/18 05:45 - Constitutional Appears: Well, Non-toxic, No Acute Distress - Head Exam Head Exam: ATRAUMATIC, NORMOCEPHALIC - Extremities Exam Additional comments: B/l exam Post op dressings intact with minimal sero-sanguinous drainage Cap refill <3 seconds to remaining digits with pulses palpable No pus or purulent drainage at surgical sites b/l Sutures are intact Sites are well coapted Temp gradient warm to warm - Neurological Exam Neurological Exam: Alert, Awake, Oriented x3 - Psychiatric Exam Psychiatric exam: Normal Affect, Normal Mood Assessment and Plan - Assessment and Plan (Free Text) Assessment: 43 y/o male patient POD7 I and D of right foot abscess with debridement of infected ulcer and 2nd met bone partial resection and left foot debridement of infected ulcer with left 2nd met bone partial resection Plan: Patient seen and evaluated Discussed in detail with Dr. Lan Afebrile, absent leukocytosis Packing removed and surgical sites re-dressed with xeroform, DSD Fiberglass cast removed at this time Continue IV abx as per Infectious Disease recommendation- PICC line placed for IV Abx Repeat blood cultures were negative Patient to follow up at the Podiatry wound care center in [place] on 10/22. Patient is aware Patient to reinforce dressing if strike-through noted Patient aware he has to remain NWB, partial weight bearing to and from bathroom
--- NOTE | 2018-10-18 13:56 | CP.PCM.PCO ---
Assessment & Plan - Assessment and Plan (Free Text) Assessment: pt. seen and examined, feels well this morning s/p picc line insertion labs/ cx results reviewed pt. wishes to have home infusion iv abx pt. to cont. on Bactrim 500mg iv q6 hrs for 15 more days Invanz 1gm ivpb daily for 4 more weeks Daptomycin 580 mg daily for 4 more weeks monitor cbc, cpk, bmp every week Rx for all meds/ labs provided pt. will f/u with Dr. Robert/Mary outpatient
--- NOTE | 2018-10-18 14:24 | PQF ---
PROVIDER RESPONSE TEXT: Port line sepsis present on admission. REVIEWER QUERY TEXT: Present On Admission It is unclear whether a diagnosis was present on admission. Your help is needed. Please clarify the POA status of the Port Infection -- Present on admission -- Not present on admission --Unable to determine 10/08 blood culture x2:Strentrohomonas Maltophillia 10/10:blood -thru central line: Strentrohomonas Maltophillia 10/14 Catheter tip: culture prelim: Strentrohomonas Maltophillia 10/12 ID: advised to remove port since since blood culture from port GNR 10/14 Op note: Infection, Port Op Findings: -Left subclavian port present. Post-Op Diagnosis: -Port infection Op Performed: -Removal of left subclavian vein port. The patient's Clinical Indicators include: -- Query created by: Alma Hearn on 10/17/2018 1:47 PM Electronically signed by: Souleymane Thomas MD 10/18/2018 2:21 PM
--- NOTE | 2018-10-18 14:53 | CP.PCM.DIS ---
Provider - Provider Date of Admission: 10/08/18 19:34 Attending physician: Souleymane Thomas MD Consults: 10/08/18 19:35 Podiatry Consult Stat Comment: Consulting Provider: Geovanni Lan Consulting Physician: Geovanni Lan Reason for Consult: right foot osteomyelitis 10/08/18 21:20 Infectious Disease Consult Routine Comment: Consulting Provider: Tristan Snow Consulting Physician: Tristan Snow Reason for Consult: R foot infected ulcer 10/09/18 18:07 Endocrinology Consult Routine Comment: Consulting Provider: Stephanie Green Consulting Physician: Stephanie Green Reason for Consult: DM 10/09/18 18:08 Cardiology Consult Routine Comment: Consulting Provider: Jarod Hess Consulting Physician: Jarod Hess Reason for Consult: pre-op cardiac clearance Time Spent in preparation of Discharge (in minutes): 35 Diagnosis - Discharge Diagnosis (1) Osteomyelitis of right foot Status: Acute Priority: High (2) Abscess and cellulitis Status: Acute (3) Anemia Status: Acute Priority: High (4) Hyperglycemia Status: Acute Priority: High (5) Diabetes mellitus Status: Chronic Priority: High (6) Diabetic neuropathy Status: Chronic Priority: Medium (7) Hypertension Status: Chronic Priority: Medium (8) Morbid obesity Status: Chronic Priority: High (9) Dyslipidemia Status: Acute Priority: Low Hospital Course - Lab Results Lab Results: Micro Results 10/15/18 12:15 Blood-Venous Blood Culture - Preliminary NO GROWTH AFTER 3 DAYS 10/14/18 14:00 Catheter Tip Catheter Tip Culture - Final Stenotrophomonas Maltophilia 10/13/18 16:40 Blood-Venous Blood Culture - Preliminary NO GROWTH AFTER 4 DAYS 10/13/18 16:00 Blood Blood Culture - Preliminary NO GROWTH AFTER 4 DAYS 10/08/18 20:06 Blood Blood Culture - Final Stenotrophomonas Maltophilia 10/08/18 20:06 Blood Gram Stain - Final 10/10/18 13:45 Blood-Thru Central Line Blood Culture - Final Stenotrophomonas Maltophilia 10/10/18 13:45 Blood-Thru Central Line Gram Stain - Final 10/10/18 13:45 Blood-Venous Blood Culture - Final Stenotrophomonas Maltophilia 10/10/18 13:45 Blood-Venous Gram Stain - Preliminary 10/08/18 19:50 Blood Blood Culture - Final Stenotrophomonas Maltophilia 10/08/18 19:50 Blood Gram Stain - Final 10/08/18 18:00 Foot - Left Gram Stain - Final 10/08/18 18:00 Foot - Left Wound Culture - Final Pseudomonas 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 10/08/18 18:00 Foot - Right Gram Stain - Final 10/08/18 18:00 Foot - Right Wound Culture - Final Escherichia Coli Methicillin Resistant S Aureus Most Recent Lab Values WBC 5.0 K/uL (4.8-10.8) 10/18/18 10:35 RBC 3.31 Mil/uL (4.40-5.90) L 10/18/18 10:35 Hgb 8.8 g/dL (12.0-18.0) L 10/18/18 10:35 Hct 26.9 % (35.0-51.0) L 10/18/18 10:35 MCV 81.2 fl (80.0-94.0) 10/18/18 10:35 MCH 26.7 pg (27.0-31.0) L 10/18/18 10:35 MCHC 32.9 g/dL (33.0-37.0) L 10/18/18 10:35 RDW 16.3 % (11.5-14.5) H 10/18/18 10:35 Plt Count 303 K/uL (130-400) 10/18/18 10:35 MPV 6.5 fl (7.2-11.7) L 10/15/18 12:15 Neut % (Auto) 62.4 % (50.0-75.0) 10/15/18 12:15 Lymph % (Auto) 24.9 % (20.0-40.0) 10/15/18 12:15 [place] % (Auto) 9.5 % (0.0-10.0) 10/15/18 12:15 Eos % (Auto) 2.8 % (0.0-4.0) 10/15/18 12:15 Baso % (Auto) 0.4 % (0.0-2.0) 10/15/18 12:15 Neut # (Auto) 4.1 K/uL (1.8-7.0) 10/15/18 12:15 Lymph # (Auto) 1.6 K/uL (1.0-4.3) 10/15/18 12:15 [place] # (Auto) 0.6 K/uL (0.0-0.8) 10/15/18 12:15 Eos # (Auto) 0.2 K/uL (0.0-0.7) 10/15/18 12:15 Baso # (Auto) 0.0 K/uL (0.0-0.2) 10/15/18 12:15 ESR > 120 mm/hr (0-15) H 10/17/18 06:15 Retic Count 2.3 % (0.5-1.5) H 10/09/18 10:30 PT 13.8 Seconds (9.8-13.1) H 10/09/18 05:45 INR 1.2 10/09/18 05:45 APTT 32.5 Seconds (25.6-37.1) 10/09/18 05:45 Sodium 133 mmol/l (132-148) 10/18/18 10:35 Potassium 5.3 MMOL/L (3.6-5.0) H 10/18/18 10:35 Chloride 99 mmol/L (98-107) 10/18/18 10:35 Carbon Dioxide 23 mmol/L (22-30) 10/18/18 10:35 Anion Gap 16 (10-20) 10/18/18 10:35 BUN 14 mg/dl (9-20) 10/18/18 10:35 Creatinine 1.1 mg/dl (0.8-1.5) 10/18/18 10:35 Est GFR ( Amer) > 60 10/18/18 10:35 Est GFR (Non-Af Amer) > 60 10/18/18 10:35 POC Glucose (mg/dL) 195 mg/dL (65-110) H 10/18/18 11:37 Random Glucose 136 mg/dL (75-110) H 10/18/18 10:35 Hemoglobin A1c 7.9 % (4.2-6.5) H 10/15/18 12:15 Lactic Acid 0.7 mmol/L (0.7-2.1) 10/08/18 20:14 Calcium 9.2 mg/dL (8.4-10.2) 10/18/18 10:35 Phosphorus 5.6 mg/dl (2.5-4.5) H 10/15/18 12:15 Magnesium 2.1 MG/DL (1.6-2.3) 10/15/18 12:15 Iron 43 ug/dL (49-181) L 10/09/18 10:30 TIBC 216 ug/dL (250-450) L 10/09/18 10:30 % Saturation 20 % (20-55) 10/09/18 10:30 Ferritin 193.0 ng/Ml (17.9-464) 10/09/18 10:30 Total Bilirubin 0.2 mg/dl (0.2-1.3) 10/18/18 10:35 AST 44 U/L (17-59) 10/18/18 10:35 ALT 27 U/L (21-72) 10/18/18 10:35 Alkaline Phosphatase 125 U/L (38-126) 10/18/18 10:35 Total Creatine Kinase 59 U/L (55-170) 10/17/18 06:15 C-Reactive Protein 83.00 mg/L (0.0-9.9) H 10/09/18 05:45 Total Protein 8.9 G/DL (6.3-8.2) H 10/18/18 10:35 Albumin 3.9 g/dL (3.5-5.0) 10/18/18 10:35 Globulin 5.0 gm/dL (2.2-3.9) H 10/18/18 10:35 Albumin/Globulin Ratio 0.8 (1.0-2.1) L 10/18/18 10:35 Triglycerides 161 mg/DL (0-149) H 10/15/18 12:15 Cholesterol 94 mg/dL (0-199) 10/15/18 12:15 LDL Cholesterol Direct 40 mg/dL (0-129) 10/15/18 12:15 HDL Cholesterol 19 MG/DL (30-70) L 10/15/18 12:15 Vitamin B12 374 pg/mL (239-931) 10/09/18 10:30 RBC Folate 1201 ng/mL RBC (>280) 10/09/18 10:30 Thyroxine (T4) 4.72 ug/dl (5.5-11.0) L 10/15/18 12:15 TSH 3rd Generation 1.06 mIU/ML (0.46-4.68) 10/15/18 12:15 Blood Type O POSITIVE 10/09/18 10:30 Blood Type Confirm O POSITIVE 10/09/18 05:45 Antibody Screen Negative 10/09/18 10:30 Crossmatch See Detail 10/09/18 10:30 BBK History Checked No verified bt 10/09/18 10:30 - Date & Time of H&P Date of H&P: 10/09/18 Time of H&P: 13:10 Discharge Exam - Head Exam Head Exam: ATRAUMATIC, NORMOCEPHALIC - Eye Exam Eye Exam: PERRL - ENT Exam ENT Exam: Normal Exam - Neck Exam Neck exam: Normal Inspection - Respiratory Exam Respiratory Exam: NORMAL BREATHING PATTERN - Cardiovascular Exam Cardiovascular Exam: REGULAR RHYTHM - GI/Abdominal Exam GI & Abdominal Exam: Normal Bowel Sounds, Soft - Extremities Exam Additional comments: B/L feet dressing, no drainage on surgical site - Neurological Exam Neurological exam: Alert, Oriented x3 - Psychiatric Exam Psychiatric exam: Normal Mood - Skin Skin Exam: Warm Discharge Plan - Discharge Medications Prescriptions: Sulfamethoxazole/Trimethoprim [Bactrim Inj] 500 mg IVPB Q6 #60 vial DAPTOmycin [Cubicin] 580 mg IV DAILY #30 vial Ferrous Sulfate [Feosol] 325 mg PO BID #30 tab metFORMIN [glucOPHAGE] 850 mg PO BIDWM #60 tab Ertapenem 1gm in NS 50ml [Invanz] 1 gm IVPB DAILY #30 bag Qajye-5-Xoxm Ethyl Esters 1 GM [Lovaza] 2 gm PO BID #60 sgl Pantoprazole [Protonix EC Tab] 40 mg PO DAILY #30 ect - Follow Up Plan Condition: FAIR Disposition: HOME/ ROUTINE Patient education suggested?: Yes Instructions: Low Potassium Diet, Osteomyelitis (DC), Cellulitis (Skin Infection), Adult (DC) Additional Instructions: follow up with primary Md, dr nora rahman 1 week kash infusion for intravenous antibiotics: [phone] Referrals: [facility] [place] [Outside] Tristan Snow MD [Staff Provider] - Nestor Gillespie MD [Staff Provider] - Geovanni Lan DPM [Staff Provider] -
[2018-10-18 16:21] VITALS: BP 133/66; PULSE 66; TEMP 97.3; O2SAT 96
[2018-10-18 17:37] LABS: BLOOD UREA NITROGEN 17 mg/dl (9-20); CALCIUM 9.3 mg/dL (8.4-10.2); GFR NON-AFRICAN AMERICAN > 60
== END 2018-10-18 19:14 | disposition home or self-care (01) | DRG 565 ==
LOC: H.ER 18:42 → H.ERHOLD 19:34 → H.MEDSURG1 21:23
PROVIDERS: ADMIT Internal Medicine Pulmonary Disease; ATTEND Internal Medicine Pulmonary Disease
PROC: 30233N1 Transfusion of Nonautologous Red Blood Cells into Peripheral Vein, Percutaneous Approach (ICD-10-PCS; 2018-10-09)
PROC: 0QBN0ZZ Excision of Right Metatarsal, Open Approach (ICD-10-PCS; 2018-10-11)
PROC: 0J9Q0ZX Drainage of Right Foot Subcutaneous Tissue and Fascia, Open Approach, Diagnostic (ICD-10-PCS; 2018-10-11)
PROC: 0QBP0ZX Excision of Left Metatarsal, Open Approach, Diagnostic (ICD-10-PCS; principal; 2018-10-11 13:30)
PROC: 05PY33Z Removal of Infusion Device from Upper Vein, Percutaneous Approach (ICD-10-PCS; 2018-10-14)
PROC: 05H533Z Insertion of Infusion Device into Right Subclavian Vein, Percutaneous Approach (ICD-10-PCS; 2018-10-18)
PROC: 3E03329 Introduction of Other Anti-infective into Peripheral Vein, Percutaneous Approach (ICD-10-PCS; 2018-10-18)
DX: E11.621 Type 2 diabetes mellitus with foot ulcer (principal); M86.171 Other acute osteomyelitis, right ankle and foot; M86.172 Other acute osteomyelitis, left ankle and foot; E11.51 Type 2 diabetes mellitus with diabetic peripheral angiopathy without gangrene; L97.519 Non-pressure chronic ulcer of other part of right foot with unspecified severity; L97.529 Non-pressure chronic ulcer of other part of left foot with unspecified severity; L03.115 Cellulitis of right lower limb; L03.116 Cellulitis of left lower limb; L02.611 Cutaneous abscess of right foot; T80.211A Bloodstream infection due to central venous catheter, initial encounter; E11.65 Type 2 diabetes mellitus with hyperglycemia; B96.5 Pseudomonas (aeruginosa) (mallei) (pseudomallei) as the cause of diseases classified elsewhere; B95.62 Methicillin resistant Staphylococcus aureus infection as the cause of diseases classified elsewhere; B96.20 Unspecified Escherichia coli [E. coli] as the cause of diseases classified elsewhere; E11.319 Type 2 diabetes mellitus with unspecified diabetic retinopathy without macular edema; E11.42 Type 2 diabetes mellitus with diabetic polyneuropathy; E11.610 Type 2 diabetes mellitus with diabetic neuropathic arthropathy; E11.69 Type 2 diabetes mellitus with other specified complication; E66.01 Morbid (severe) obesity due to excess calories; Z68.41 Body mass index [BMI] 40.0-44.9, adult; D64.9 Anemia, unspecified; I10 Essential (primary) hypertension; E78.5 Hyperlipidemia, unspecified; E78.00 Pure hypercholesterolemia, unspecified; F17.290 Nicotine dependence, other tobacco product, uncomplicated; Z89.422 Acquired absence of other left toe(s); Z79.4 Long term (current) use of insulin; Z88.1 Allergy status to other antibiotic agents